=== PATIENT | female | born 1955 | race Caucasian/White ===

== ENCOUNTER → 2018-02-07 11:02 | Outpatient (CLI) | payer MEDICAID, SELFPAY ==
[2018-02-07 12:16] LABS: T4 Free Direct 0.75 ng/dL (0.76-1.46); Thyroid Stim Hormone (TSH) 1.22 uIU/mL (0.358-3.74)
== END ==
PROVIDERS: Family Provider Family Medicine; PCP Family Medicine; Visit Provider Otolaryngology Otolaryngology/Facial Plastic Surgery
DX: R49.0 Dysphonia (principal)
CPT/HCPCS: 36415; 84439; 84443

== ENCOUNTER 2019-12-07 13:09 | Emergency (ER) | payer MEDICARE, OTHER, SELFPAY ==
[2019-12-07 13:13] VITALS: BP 118/65; PULSE 78; RESP 17; TEMP 36.8; O2SAT 95; BMI 31.2
--- NOTE | 2019-12-07 13:42 | ED.VIS.UPPEX ---
History of Present Illness Informant: Patient Occurred: Today Mechanism/Context: - - denies injury Onset: Today Context: Gradual Onset Timing: Continuous Quality of Pain: Sharp Location: right shoulder Current Severity: Severe Maximum Severity: Severe Worsened by: movement Relieved by: rest Associated Symptoms: Negative for: Parasthesia, Weakness, Loss of Funtion Narrative: 64-year-old female with a past medical history of hypothyroidism presents to the emergency department with right shoulder pain. Patient woke up with the pain to this morning. No inciting injury or trauma. The pain is sharp in her anterior shoulder radiating down into her arm. No neck pain. No numbness or tingling. No weakness. No redness swelling rash or bruising. She is not anticoagulated. Denies history of similar symptoms. She is right-hand dominant. No chest pain or shortness of breath, palpitations or near syncope. No headache or neck pain. No fevers or chills. No recent travel or surgery or history of DVT or PE. Tetanus Immunization: Unknown Prior similar symptoms: No Recent Illness/Hospitalization: No <Lui Bush - Last Filed: 12/07/19 14:23> <Kaiser Babcock - Last Filed: 12/07/19 14:31> Chief Complaint: Upper Extremity Injury Past Medical History Prior records reviewed: Yes Past Medical History: - - Hypothyroidism Surgical History: no surgical history Lives: With Family Smoking Status: Never smoker Alcohol: None Drugs: None <Lui Bush - Last Filed: 12/07/19 14:23> <Kaiser Babcock - Last Filed: 12/07/19 14:31> - Allergies and Home Meds Allergies/Adverse Reactions: Allergies STATES HAS 1 ALLERGY, NOT KNOWN Adverse Reaction (Uncoded 12/07/19 13:13) NOT KNOWN Primary Care Physician: Ileana Patel DO [STAFF PHYSICIAN] - As soon as possible Ariella Sheikh MD [Primary Care Provider] - Review of Systems All systems negative except as indicated General: Denies: Chills, Fever, Malaise Eyes: Denies: Visual changes - bilaterally, Blurred Vision - bilaterally, Diplopia ENT: Denies: Rhinorrhea, Sore throat Cardiovascular: Denies: Chest pain, Palpitations, Heart racing Respiratory: Denies: Dyspnea, Cough, Sputum, Dyspnea on exertion, Orthopnea Gastrointestinal: Denies: Abdominal pain, Nausea, Vomiting, Diarrhea Genitourinary: Denies: Dysuria, Hematuria, Frequency Musculoskeletal: Reports: Extremity Pain. Denies: Myalgias, Arthralgias, Neck pain, Back pain, Swelling Skin: Denies: Rash, Abscess, Abrasions, Wounds Neurological: Denies: Headache, Weakness, Parasthesia, Numbness Hematologic: Denies: Easy bruising, Easy bleeding <Lui Bush - Last Filed: 12/07/19 14:23> Physical Exam Vital Signs/Narrative: Vital Signs Temp Pulse Resp BP Pulse Ox 12/07/19 13:13 98.2 F 78 17 118/65 95 Inital Vital Signs reviewed: Yes ED - Upper Extremity Diagram: 1 - Tenderness to palpation Right Shoulder: - - Patient has a normal inspection of the right shoulder and right upper extremity. No swelling bruising rash trauma or sign of infection. She has limited range of motion secondary to pain but no weakness. Pain on palpation anteriorly over the anterior rotator cuff musculature. Pain specifically with external rotation. She has no tenderness over her neck elbow or wrist on palpation. She has normal radial pulse bilaterally and equal rolling attendant strength bilaterally. General: Well nourished, Well developed Head: Normocephalic, Atraumatic Eyes: Perrl, EOMI ENT: No Trauma, Moist Mucous Membranes Neck: Nontender, Full ROM. Negative for: Spinal Tenderness, Paraspinal Tenderness Cardiovascular: Regular rate, Regular rhythm, No murmurs Respiratory: No distress, CTA bilaterally, Chest nontender Abdomen: Soft, Nontender, Nondistended, Normal bowel sounds, No masses Back: Nontender. Negative for: CVA Tenderness - Right, CVA Tenderness - Left, Spinal Tenderness, Paraspinal Tenderness Skin: Normal color, No rash, No Trauma Neurological: Alert, Oriented x3, Normal Strength, Normal Sensation, Normal Gait Psychological: Normal affect, Normal Mood <Lui Bush - Last Filed: 12/07/19 14:23> Vital Signs/Narrative: Vital Signs Temp Pulse Resp BP Pulse Ox 12/07/19 13:13 98.2 F 78 17 118/65 95 <Sadiq,Sam - Last Filed: 12/07/19 14:31> Diagnostic/Tx/Re-eval - Medical Decision Making Patient was given a [place] for pain. X-ray shows degenerative changes of the AC joint. No other abnormalities. Patient reassured. She be placed in a sling. She was prescribed [place]. She will rest and ice and she will be given follow-up with orthopedics. Impressions Shoulder X-Ray 12/07/19 13:46 IMPRESSION: Degenerative changes of the acromioclavicular joint. Electronically Signed: Roshan Castillo, at 14:16 EDT , Service support , 12/07/19 13:46 Xray Shoulder [Shoulder min 2 Views] [RAD] Stat <Lui Bush - Last Filed: 12/07/19 14:23> - Medical Decision Making I supervised the PA and have performed my own pertinent history and physical. Results and treatment plan were discussed. HPI: Patient reports that this morning she woke up with right shoulder pain. She is right-hand dominant. She denies any trauma. No fall, MVA, or change in activity. PE: Vitals: Stable. Afebrile. General: Well-nourished and well-developed. Head: Normocephalic atraumatic. Neck: Supple, no lymphadenopathy. No JVD. Nontender. Cardiovascular: Regular rate and rhythm. No murmurs. Respiratory: No respiratory distress. Clear to auscultation bilaterally. Abdominal: Soft, nontender, nondistended, normal bowel sounds. No guarding, rebound, or peritoneal signs. Back: Nontender. Extremities: Right shoulder has moderate tenderness palpation that is localized over the AC joint. She does have mild diffuse tenderness palpation of her deltoid, but this is not the main area of her pain. There is no overlying erythema or warmth to suggest a septic joint. She has minimal pain with short arc movements. She does have considerable pain with abduction to 90 degrees. This is worse actively than passively. She has a 2+ radial pulse. She has normal sensation light touch distally. Skin: Normal color, no rash. Neurologic: Alert and oriented ?3. Cranial nerves II through XII are intact. Normal strength and sensation. Psych: Normal affect. Emergency Department course: Patient was treated with [place] and placed in a sling. Treatment Plan: Patient be discharged with [place]. Instructed to ice the area. Follow-up Dr. Frank Rosado in 1 week if not improving. Return to the emergency department for any worsening symptoms. This note was generated with [employer] dictation software. It may contain incorrect words, spelling, and punctuation that were not noted in review of the chart prior to signing. <Kaiser Babcock - Last Filed: 12/07/19 14:31> ED Disposition <Lui Bush - Last Filed: 12/07/19 14:23> <Kaiser Babcock - Last Filed: 12/07/19 14:31> - Plan for ED Patient: Disposition: Home or Assisted Living Diagnosis: Acromioclavicular joint arthritis, Acromioclavicular (joint) (ligament) sprain Instructions: ED Sprain AC Joint Prescriptions: Hydrocodone Bitart/Apap 5-325 [[place] 5MG-325MG] 1 tab PO Q6H PRN PRN 3 Days #10 tab PRN Reason: Pain Prescription Printed Referrals: Ariella Sheikh MD [Primary Care Provider] - Ileana Patel DO [STAFF PHYSICIAN] - As soon as possible
--- NOTE | 2019-12-07 13:46 | RAD_ITS ---
STUDY: X-RAY - RIGHT SHOULDER REASON FOR EXAM: Female, 64 years old. WOKE UP THIS MORNING WITH RIGHT SHOULDER PAIN. NO KNOWN INJURY. TECHNIQUE: 4 view(s) of the shoulder. COMPARISON: None. FINDINGS: Normal glenohumeral articulation. There is degenerative arthrosis of the acromioclavicular joint without inferior osseous spur formation. Normal acromion. Normal humeral head and visualized proximal humerus. The soft tissue structures are unremarkable. Normal visualized pulmonary apex. RAD/Shoulder min 2 Views IMPRESSION: Degenerative changes of the acromioclavicular joint. Electronically Signed: Roshan Castillo, at 14:16 EDT , Service support ,
[2019-12-07] MEDS: HYDROcodone Bitartrate/Apap 5/325 Tablet PO (14:33)
[2019-12-07 14:44] VITALS: BP 122/76; PULSE 79; RESP 14; O2SAT 99
== END 2019-12-07 14:50 | disposition home or self-care (01) ==
PROVIDERS: Emergency Provider Physician Assistant Medical; PCP Internal Medicine
DX: M13.811 Other specified arthritis, right shoulder (principal); S43.51XA Sprain of right acromioclavicular joint, initial encounter; E03.9 Hypothyroidism, unspecified; X58.XXXA Exposure to other specified factors, initial encounter
CPT/HCPCS: 73030; 99283

== ENCOUNTER → 2020-01-24 09:40 | Outpatient (CLI) | payer MEDICARE, OTHER, SELFPAY ==
[2020-01-24 09:27] VITALS: BMI 31.2
--- NOTE | 2020-01-24 09:41 | RAD_ITS ---
STUDY: X-RAY - LEFT SHOULDER REASON FOR EXAM: Female, 64 years old. CHRONIC PAIN TECHNIQUE: 3 view(s) of the shoulder. COMPARISON: None. FINDINGS: There is moderate degenerative arthrosis of the glenohumeral articulation. There is degenerative arthrosis of the acromioclavicular joint without inferior osseous spur formation. Normal acromion. Normal humeral head and visualized proximal humerus. The soft tissue structures are unremarkable. Normal visualized pulmonary apex. RAD/Shoulder min 2 Views IMPRESSION: Degenerative arthrosis Electronically Signed: Lloyd Kelly MD at 17:13 EDT , Service support ,
== END ==
PROVIDERS: PCP Internal Medicine; Referring Provider Physician Assistant; Visit Provider Physician Assistant
DX: M25.512 Pain in left shoulder (principal)
CPT/HCPCS: 73030

== ENCOUNTER 2021-10-24 13:40 | Emergency (ER) | payer MEDICARE, SELFPAY ==
[2021-10-24 13:41] VITALS: BP 130/106; PULSE 55; RESP 16; TEMP 35.1; O2SAT 91; BMI 30.1
--- NOTE | 2021-10-24 13:50 | RAD_ITS ---
STUDY: X-RAY CHEST REASON FOR EXAM: Female, 66 years old. confusion TECHNIQUE: Single AP portable view of the chest. COMPARISON: None. FINDINGS: The lungs are clear and expanded. There is no demonstrated pleural abnormality. Normal size heart. Normal mediastinum and sabas. Normal visualized pulmonary arteries. Normal visualized aortic arch and descending thoracic aorta. Normal visualized thoracic spine. Normal visualized ribs, clavicles, and shoulders. There is no demonstrated abnormality of the visualized soft tissue structures of the upper abdomen. RAD/Chest 1 View (Portable) IMPRESSION: Normal x-ray examination of the chest. Electronically Signed: Ford Hensley MD at 14:53 EDT ,
--- NOTE | 2021-10-24 13:50 | CT_ITS ---
STUDY: CT BRAIN WITHOUT CONTRAST REASON FOR EXAM: Female, 66 years old. confusion RADIATION DOSAGE (If Supplied By Facility): CTDIvol = ( 44.99 ) mGy, DLP = ( 796.11 ) mGycm TECHNIQUE: Transaxial CT imaging of the brain was performed without administration of intravenous contrast material. Individualized dose optimization techniques were used for this CT. COMPARISON: No relevant priors. FINDINGS: Normal soft tissue structures. Normal calvarium. There is moderate cerebral atrophy with widening of the extra-axial spaces and ventricular dilatation. Normal white matter tracts of the cerebral hemispheres. Normal basal ganglia and thalami. Normal brainstem. Normal cerebellum. There is no intracranial hemorrhage. There are no findings of an acute ischemic infarction. Normal visualized paranasal sinuses. CT/Brain/Head without Contrast IMPRESSION: Chronic involutional changes of the brain. Electronically Signed: Ford Hensley MD at 14:54 EDT ,
--- NOTE | 2021-10-24 13:50 | EKG12_ITS ---
Test Reason : Blood Pressure : / mmHG Vent. Rate : 067 BPM Atrial Rate : 067 BPM P-R Int : 188 ms QRS Dur : 074 ms QT Int : 428 ms P-R-T Axes : 015 -22 012 degrees QTc Int : 452 ms Normal sinus rhythm Low voltage QRS Inferior infarct , age undetermined Abnormal ECG Confirmed by ALTHEA CHOU, RAGHAVENDRA ([id number]), acquisition editor JUNI GUZMAN ([id number]) on 10/26/2021 11:38:15 A M Referred By: MADIE Confirmed By:JERALD OH MD
--- NOTE | 2021-10-24 13:51 | ED.RN ---
Pt and family stated that pt had some confusion and right sided weakness that started when pt woke up this am. Dr Hutton called to triage to rule out stroke. Pt then told Dr Hutton that the confusion started a couple months ago. Pt told him that her complaint was that her right wrist/hand was hurting but doesnt remember hurting it. After the pt was being taken to a room, sister pulled this nurse aside and told me that the pt has alzheimers and it has been getting worse. Dr Hutton and primary nurse is aware.
--- NOTE | 2021-10-24 13:59 | EDS_ITS ---
HPI History of Present Illness Chief Complaint: Other, Pain/Inj Narrative Narrative: Patient initially assessed in triage as there was concern for possible strokelike symptoms. Patient reported that she felt confused this morning and reported pain and weakness in the right arm. Patient has not had any facial droop, slurred speech, paresthesias, inability to use extremities with exception to the right wrist which is tender since this morning. He denies any injury. Patient does not have a headache. After speaking with her further her [id number] states she has dementia and she has been confused on and off for months. She describes this morning confusion where she was unable to answer some questions initially. She is at baseline now. [facility] Medical History Alcohol abuse Drug abuse High cholesterol Hypothyroid Home Medications levothyroxine 25 mcg PO DAILY 12/07/19 [History Last Taken 12/07/19] sertraline 50 mg tablet 50 mg PO DAILY tab 01/24/20 [History Last Taken Unknown] simvastatin 40 mg tablet 40 mg PO DAILY tab 01/24/20 [History Last Taken Unknown] sertraline 100 mg PO DAILY 10/24/21 [History Last Taken Unknown] Allergy/AdvReac Type Severity Reaction Status Date / Time naproxen Allergy Unknown Unknown Verified 01/24/20 09:31 STATES HAS 1 ALLERGY, NOT AdvReac NOT KNOWN Uncoded 12/07/19 13:13 KNOWN Family History Son No problems noted. Father Alcoholism Other Hyperlipidemia Thyroid disorder Surgical History History of tonsillectomy Social History Smoking Status: Former smoker Tobacco: How many years used: 3 second hand exposure: No alcohol intake: never substance use type: does not use caffeine: Yes ROS ROS ED Constitutional Constitutional ED: Denies fever(s) or subjective Eyes Eyes: Denies blurry vision or change in vision ENT ENT ED: Denies rhinorrhea or sore throat Cardiovascular Cardiovascular: Denies chest pain or palpitations Respiratory/Chest Respiratory/Chest: Denies cough or dyspnea Gastrointestinal Gastrointestinal: Denies abdominal pain, nausea or vomiting Genitourinary Genitourinary ED: Denies dysuria or hematuria Musculoskeletal Musculoskeletal: Reports other Details: Right wrist pain Integumentary Denies abscess or rash Neurologic Neurologic: Denies headache(s) or paresthesias Psychiatric Psychiatric: Denies anxiety or depression EXAM Physical Exam Const Vital Signs: 10/24/21 13:41 10/24/21 14:02 Temperature 95.1 F L Temperature Source Temporal Pulse Rate 55 L 71 Respiratory Rate 16 18 Blood Pressure 130/106 H 110/64 Blood Pressure Mean 114 79 Pulse Ox 91 98 Oxygen Delivery Method Room Air Room Air Positive well nourished General Appearance ED: NAD HEENT atraumatic Eyes PERRL and EOMs intact bilaterally Neck full ROM General: Negative for tenderness Resp normal respiratory effort and clear to auscultation bilaterally Cardio Rate: regular rate and bradycardia GI normal to inspection, nondistended, normoactive bowel sounds Extremity normal to inspection; Negative for full ROM General Extremety ED: Negative for tenderness Neuro oriented x3, CN's II-XII intact bilaterally, moves all extremities, no focal motor deficits and no sensory deficits noted Sensorium / Orientation: alert Psych mental status grossly normal Skin no rashes or lesions noted and no jaundice MDM MDM MDM Narrative Medical decision making narrative: Patient presenting with confusion and initially was thought this may be strokelike symptoms and apparently she has been having intermittent confusion for months. On examination she has no focal neurologic deficits or lateralizing signs or symptoms. NIH stroke scale is 0. I do not believe this is a stroke presentation, but will look for a cause of confusion other than her dementia patient was found to have a positive Tinel's sign on the right wrist. Patient [id number] she states the does a lot of coloring. She does not have any trauma history to her wrist. I do not believe she needs imaging. She is counseled for this you need NSAIDs and ice. I did obtain blood work and her CBC and CMP are unremarkable. EKG on my interpretation Is sinus rhythm at 67 bpm without sign of ischemic change or dysrhythmia. Chest x-ray on my interpretation shows no acute cardiopulmonary process and the radiologist does agree.CT of the brain is negative for acute pathology. Urinalysis negative for infection. I do believe the patient's symptoms are likely due to her dementia and her family does agree. Patient put in a wrist splint for discharge. Impression: 1. Confusion resolved 2. History of dementia 3. Carpal tunnel syndrome Lab Data Attestation: I reviewed the patient's lab results. Labs: Laboratory Results - last 24 hr 10/24/21 10/24/21 10/24/21 13:56 13:56 13:56 WBC 7.6 RBC 4.62 Hgb 13.1 Hct 39.9 MCV 86.4 MCH 28.4 MCHC 32.8 RDW Std Deviation 42.8 RDW Coeff of [place] 13.6 Plt Count 221 MPV 9.0 Immature Gran % (Auto) 0.300 Neut % (Auto) 76.6 H Lymph % (Auto) 15.2 L [place] % (Auto) 7.1 Eos % (Auto) 0.1 Baso % (Auto) 0.7 Absolute Neuts (auto) 5.8 Absolute Lymphs (auto) 1.16 Nucleated RBC % 0 Sodium 138 Potassium 3.6 Chloride 107 Carbon Dioxide 25.0 Anion Gap 6 BUN 12 Creatinine 1.04 H Estim Creat Clear Calc 40.95 Est GFR (MDRD) Af Amer 68 Est GFR (MDRD) Non-Af 56 L BUN/Creatinine Ratio 11.5 Glucose 174 H Calcium 9.0 Total Bilirubin 0.50 AST 19 ALT 19 Alkaline Phosphatase 93 Troponin I High Sens 3 Total Protein 7.9 Albumin 3.7 Globulin 4.2 Albumin/Globulin Ratio 0.9 Urine Color Urine Clarity Urine pH Ur Specific [place] Urine Protein Urine Glucose (UA) Urine Ketones Urine Occult Blood Urine Nitrite Urine Bilirubin Urine Urobilinogen Ur Leukocyte Esterase Urine RBC Urine WBC Ur Squamous Epith Cells Urine Bacteria Urine Mucus POC Glucose 171 H 10/24/21 16:13 WBC RBC Hgb Hct MCV MCH MCHC RDW Std Deviation RDW Coeff of [place] Plt Count MPV Immature Gran % (Auto) Neut % (Auto) Lymph % (Auto) [place] % (Auto) Eos % (Auto) Baso % (Auto) Absolute Neuts (auto) Absolute Lymphs (auto) Nucleated RBC % Sodium Potassium Chloride Carbon Dioxide Anion Gap BUN Creatinine Estim Creat Clear Calc Est GFR (MDRD) Af Amer Est GFR (MDRD) Non-Af BUN/Creatinine Ratio Glucose Calcium Total Bilirubin AST ALT Alkaline Phosphatase Troponin I High Sens Total Protein Albumin Globulin Albumin/Globulin Ratio Urine Color Yellow Urine Clarity Clear Urine pH 5.0 Ur Specific [place] 1.015 Urine Protein 15 H Urine Glucose (UA) Normal Urine Ketones Negative Urine Occult Blood 10 H Urine Nitrite Negative Urine Bilirubin Negative Urine Urobilinogen 4 H Ur Leukocyte Esterase 100 H Urine RBC 0 SEEN Urine WBC 0-5 SEEN Ur Squamous Epith Cells 0-5 SEEN Urine Bacteria 0 SEEN Urine Mucus 1+ POC Glucose Radiography Diagnostic Testing: Clinical Impression(s) from Imaging Studies Brain CT 10/24/21 13:50 IMPRESSION: Chronic involutional changes of the brain. Electronically Signed: Ford Hensley MD at 14:54 EDT Reading Location ID and State: [id number] / [place] [employer] Tel , Service support , Chest X-Ray 10/24/21 13:50 IMPRESSION: Normal x-ray examination of the chest. Electronically Signed: Ford Hensley MD at 14:53 EDT Reading Location ID and State: [id number] / [place] [employer] Tel , Service support , Discharge Plan Triage Chief Complaint: Other, Pain/Inj ED Provider: Dominic Hutton Dx/Rx/DC Orders Prescriptions: No Action simvastatin 40 mg tablet 40 mg PO DAILY RF: 0 sertraline 50 mg tablet 50 mg PO DAILY RF: 0 levothyroxine 25 MCG tablet 25 mcg PO DAILY RF: 0 sertraline 100 mg tablet 100 mg PO DAILY RF: 0 Primary Care Provider: Tae Cordova
[2021-10-24 14:02] VITALS: BP 110/64; PULSE 71; RESP 18; O2SAT 98
[2021-10-24 14:08] LABS: Absolute Lymphocyte Count 1.16 X10^3/uL (0.83-4.51); Absolute Neutrophil Count 5.8 X10^3/uL (2.0-7.7); Basophil# 0.05 X10^3/uL; Basophil% 0.7 % (0-1); Eosinophil# 0.01 X10^3/uL; Eosinophils% 0.1 % (0-5); Hematocrit 39.9 % (37-47); Hemoglobin 13.1 g/dL (12.0-15.0); Lymphocyte # 1.16 X10^3/ul (0.83-4.51); Lymphocyte % 15.2 % (19-41); Mean Corp Hgb Conc 32.8 g/dL (32-36); Mean Corpuscular Hgb 28.4 pg (27.0-32.0); Mean Corpuscular Volume 86.4 fL (81-99); Monocyte# 0.54 X10^3/uL; Monocyte% 7.1 % (0-10); NRBC Flagged by Analyzer 0 % (0-5); Neutrophil # 5.83 X10^3/uL (2.7-7.7); Neutrophil % 76.6 % (47-70); Platelet Count 221 K/mm3 (150-450); RBC Distribution Width CV 13.6 % (11.6-14.6); RBC Distribution Width SD 42.8 fl (35.1-43.9); Red Blood Count 4.62 M/mm3 (4.2-5.4); White Blood Count 7.6 K/mm3 (4.4-11.0)
[2021-10-24 14:11] LABS: Bedside Glucose 171 mg/dL (74-106)
[2021-10-24 14:23] LABS: ALB/GLOB Ratio 0.9 RATIO (0.9-2.4); AST(SGOT) 19 U/L (15-37); Alanine Aminotransfer ALT/SGPT 19 U/L (13-56); Albumin, Serum 3.7 g/dL (3.2-5.0); Alkaline Phosphatase 93 U/L (45-117); Anion Gap 6 (5-15); BUN 12 mg/dL (7-18); BUN/Creat Ratio 11.5 RATIO (10-20); Chloride 107 mmol/L (98-107); Creatinine, Serum 1.04 mg/dL (0.55-1.02); EST Glomerular Filtration Rate 56 mL/min (>60); Est Glom Filt Rate - Afr Amer 68 mL/min (>60); Estimated Creatinine Clearance 40.95 ml/min; Globulin 4.2 g/dL (2.2-4.2); Glucose 174 mg/dL (74-106); Potassium 3.6 mmol/L (3.5-5.1); Protein, Total 7.9 g/dL (6.4-8.2); Sodium Level 138 mmol/L (136-145); Troponin-I HS 3 pg/mL (3.0-54.0)
[2021-10-24 16:19] LABS: Bacteria 0 SEEN /hpf (None Seen); Red Blood Cells-Urine 0 SEEN /hpf (0-5)
[2021-10-24 16:41] LABS: Color, Urine Yellow (Yellow); Glucose, Dipstick Normal (Normal); Ketone-Dipstick Negative (Negative); Leukocyte Esterase-Dipstick 100 /ul (Negative); Nitrite-Dipstick Negative (Negative); Occult Blood-Urine 10 /ul (Negative); Protein-Dipstick 15 mg/dl (Negative); Specific Gravity, Urine 1.015 (1.002-1.030); Urine Bilirubin Dipstick Negative (Negative); Urine Clarity Clear (Clear); Urine Urobilinogen 4 mg/dl (Normal)
[2021-10-24 16:47] LABS: Mucous, Urine 1+ /hpf (<or=2+); Squamous Epithelial Cells - UA 0-5 SEEN /hpf (5-10); White Blood Cells 0-5 SEEN /hpf (0-5)
[2021-10-24 16:52] VITALS: BP 114/87; PULSE 62; RESP 16; O2SAT 99
[2021-10-24 17:11] VITALS: BP 114/87; PULSE 62; RESP 16; O2SAT 99
== END 2021-10-24 17:11 | disposition home or self-care (01) ==
PROVIDERS: Emergency Provider Student in an Organized Health Care Education/Training Program; PCP Family Medicine; Visit Provider Student in an Organized Health Care Education/Training Program
DX: G56.00 Carpal tunnel syndrome, unspecified upper limb (principal); E78.00 Pure hypercholesterolemia, unspecified; Z87.891 Personal history of nicotine dependence; Z79.899 Other long term (current) drug therapy
CPT/HCPCS: 70450; 71045; 80053; 81001; 82962; 84484; 85025; 93005; 99285; A4216

== ENCOUNTER 2022-05-12 22:41 | Observation (INO) | payer MEDICARE, MEDICAID, SELFPAY ==
[2022-05-12 22:41] VITALS: BP 133/61; PULSE 118; RESP 24; TEMP 39.4; O2SAT 98; BMI 30.4
[2022-05-12 22:49] VITALS: BP 133/61; PULSE 117; RESP 22; TEMP 39.4; O2SAT 95
[2022-05-12 23:17] VITALS: O2SAT 96
--- NOTE | 2022-05-12 23:17 | RAD_ITS ---
INDICATION: fever EXAMINATION: Frontal view of the chest COMPARISON: October 24, 2021. FINDINGS: Frontal view of the chest was obtained. The cardiac silhouette is not enlarged. No confluent airspace disease. No pneumothorax. RAD/Chest 1 View (Portable) IMPRESSION: No acute pulmonary disease. Electronically Signed: Guero Aiken MD at 0:03 EDT ,
--- NOTE | 2022-05-12 23:22 | EX.ED.DYSGE1 ---
HPI History of Present Illness Chief Complaint: Confusion Detail of Chief Complaint: Not feeling well today Informant: patient and family Onset/Context/Timing Onset: Today Current Severity: Mild Maximum Severity: Mild Narrative Narrative: 58-year-old female lives at home is a history of dementia. Family is with her. Says she just really was not her self today. She had normal oral intake. They did not notice any fever at home but here she is 102.9. There is been no vomiting or diarrhea. No significant cough. No complaint of abdominal pain. No complaint of dysuria. No rashes. She has had no recent hospitalization. Prior similar symptoms: Yes Recent Illness/Hospitalization: No PFSH PFSH Medical History (Updated 05/13/22 @ 00:[address] Robin Che MD) Alcohol abuse Drug abuse High cholesterol Hypothyroid Home Medications levothyroxine 25 mcg tablet 25 mcg PO DAILY 12/07/19 [History Last Taken 12/07/19] sertraline 50 mg tablet 50 mg PO DAILY 01/24/20 [History Last Taken Unknown] simvastatin 40 mg tablet 40 mg PO DAILY 01/24/20 [History Last Taken Unknown] sertraline 100 mg tablet 100 mg PO DAILY 10/24/21 [History Last Taken Unknown] Allergy/AdvReac Type Severity Reaction Status Date / Time naproxen Allergy Unknown Unknown Verified 01/24/20 09:31 STATES HAS 1 ALLERGY, NOT AdvReac NOT KNOWN Uncoded 12/07/19 13:13 KNOWN Family History Son No problems noted. Father Alcoholism Other Hyperlipidemia Thyroid disorder Surgical History History of tonsillectomy Social History Smoking Status: Former smoker Tobacco: How many years used: 3 second hand exposure: No alcohol intake: never substance use type: does not use caffeine: Yes ROS ROS ED ROS Narrative Family denies. Fever noted here. Review of Systems ROS Unobtainable: due to mental status Constitutional Constitutional ED: Reports fever(s); Denies chills Eyes Eyes: Denies blurry vision ENT ENT ED: Denies ear pain Cardiovascular Cardiovascular: Denies chest pain Respiratory/Chest Respiratory/Chest: Denies cough or dyspnea Gastrointestinal Gastrointestinal: Denies abdominal pain Genitourinary Genitourinary ED: Denies dysuria or hematuria Musculoskeletal Musculoskeletal: Denies arthralgias Integumentary Denies abscess or Abrasions Neurologic Neurologic: Denies headache(s) Psychiatric Psychiatric: Denies anxiety Endocrine Endocrinology: Denies cold intolerance Hematologic/Lymphatic Hematologic/Lymphatic: Reports none Allergic/Immunologic Allergic/Immunologic ED: Denies mouth swelling or tongue swelling EXAM Physical Exam Narrative Exam Narrative: 58-year-old female currently no acute distress. She does have a fever of 102.9. Pulse ox 90% on room air no signs hypoxia. Initial pressure is stable. She is in no distress. Lying in bed. Family at bedside. H EENT exam unremarkable. Moist Riis membranes. No trauma. Neck nontender. No meningismus. No lymphadenopathy. Lungs clear to auscultation bilaterally. Heart tachycardic rate about 116 no murmur. Chest wall nontender. Abdomen soft nontender. No peritoneal signs. Pelvic girdle intact. Moving all 4 extremities. Nontender. No deformity. No red or swollen or tender joints. Neurologically she is awake. Her eyes are open. She answers questions and follows commands. She has no focal motor deficits. Skin unremarkable. No petechiae or purpura. No rashes. No cellulitis noted. Const Vital Signs: 05/12/22 22:41 05/12/22 22:49 05/12/22 23:17 Temperature 102.9 F H 102.9 F H Temperature Source Oral Oral Pulse Rate 118 H 117 H Respiratory Rate 24 H 22 H Blood Pressure 133/61 H 133/61 H Blood Pressure Mean 85 85 Pulse Ox 98 95 96 Oxygen Delivery Method Room Air Room Air Room Air 05/12/22 23:45 05/13/22 00:07 05/13/22 00:10 Temperature 101.9 F H Temperature Source Core Pulse Rate 98 Respiratory Rate 17 22 H Blood Pressure 141/69 H Blood Pressure Mean 93 Pulse Ox 99 98 Oxygen Delivery Method Room Air Room Air Positive well nourished, well developed and obese; Negative for cachectic, contractures or unkempt General Appearance ED: well developed and NAD; Negative for unkempt, cachectic, contractures, cyanotic or diaphoretic Nutritional Appearance: obese; Negative for cachectic HEENT Reports moist mucous membranes; Denies dry mucous membranes Negative for trauma or tenderness Mouth ED: No dry mucous membranes Mouth: No dry mucous membranes Eyes PERRL and EOMs intact bilaterally General Eye ED: Negative for pale conjunctiva or scleral icterus Neck no lymphadenopathy, supple and no JVD General: Negative for tenderness Lymph Lymphatic: Negative for other Chest Wall inspection of chest normal and palpation of chest normal Chest: Negative for other Resp normal respiratory effort and clear to auscultation bilaterally Effort and Inspection: Negative for retractions Auscultation: Negative for rales or rhonchi Cardio regular rhythm, S1 normal heart sound, S2 normal heart sound and no murmurs; Negative for regular rate Rate: tachycardic GI normal to inspection, nondistended, normoactive bowel sounds, non-tender, non-distended and no masses Inspection: Negative for abdominal distention Auscultation: normoactive bowel sounds Palpation: soft; Negative for tender, guarding, mass or rebound tenderness present Back/Spine no CVA tenderness General Back: Negative for CVA tenderness Cervical Spine: Negative for cervical spine tenderness Thoracic Spine / Upper Back: Negative for thoracic spinal tenderness Lumbar Spine / Lower Back: Negative for lumbar spinal tenderness Extremity normal to inspection General Extremety ED: Negative for edema or tenderness General Extremity: Negative for edema Neuro No oriented x3 Sensorium / Orientation: alert; Negative for lethargic or stuporous Motor Exam: strength 5/5 throughout Psych mental status grossly normal Appearance: Negative for unkempt Attitude: No agitated Mood & Affect: Negative for depressed, anxious or tearful Skin no rashes or lesions noted and no wounds Lesions: No lesion noted Rashes: No rashes noted Trauma: Negative for abrasion Wounds: Negative for wounds noted MDM MDM MDM Narrative Medical decision making narrative: 66-year-old with a fever 1-2.9. No obvious source on exam. She will be treated with oral Tylenol, IV fluids. Placed her with septic protocol work-up. Repeat a.m. patient doing well at 12:25 AM. Discussed all test results with patient and her daughter. I did do a rectal exam with the daughter present in the room due to the patient's hemoglobin being 9.2 and previously 13. No stool in the vault. No blood no melena. Patient's fever is coming down last checked it was 101.9. Discussed with the daughter treatment options she did not feel she could comfortably take care of her at home. Is concerned about her worsening confusion and generalized weakness which is most likely from the COVID. I have spoken to the hospitalist about admission. Lab Data Attestation: I reviewed the patient's lab results. Lab results narrative: CBC shows white count 6.4. H&H 9.2 and 20.6. Platelets of 202. PT/INR and PTT are normal. Electrolytes show a gap of 7 normal BUN and creatinine 11 and 0.9. Glucose 133. Liver enzymes unremarkable. Lactic acid normal 1.4. Chest x-ray negative. Urinalysis negative. No whites, reds nor nitrates. Rapid COVID test positive. Labs: Laboratory Results - last 24 hr 05/12/22 05/12/22 05/12/22 22:50 22:50 22:50 WBC 6.4 RBC 3.13 L Hgb 9.2 L Hct 28.6 L MCV 91.4 MCH 29.4 MCHC 32.2 RDW Std Deviation 44.6 H RDW Coeff of Rosalba 13.3 Plt Count 202 MPV 9.3 Immature Gran % (Auto) 1.600 H Neut % (Auto) 75.8 H Lymph % (Auto) 12.1 L [place] % (Auto) 8.8 Eos % (Auto) 0.9 Baso % (Auto) 0.8 Absolute Neuts (auto) 4.8 Absolute Lymphs (auto) 0.77 L Nucleated RBC % 0 PT 14.8 INR 1.2 APTT 30.4 Sodium 139 Potassium 4.1 Chloride 109 H Carbon Dioxide 23.0 Anion Gap 7 BUN 11 Creatinine 0.98 Estim Creat Clear Calc 51.43 Est GFR (MDRD) Af Amer 73 Est GFR (MDRD) Non-Af 60 BUN/Creatinine Ratio 11.3 Glucose 133 H Lactic Acid Calcium 8.8 Total Bilirubin 0.50 AST 23 ALT 21 Alkaline Phosphatase 76 Total Protein 7.8 Albumin 3.2 Globulin 4.6 H Albumin/Globulin Ratio 0.7 L Urine Color Urine Clarity Urine pH Ur Specific [place] Urine Protein Urine Glucose (UA) Urine Ketones Urine Occult Blood Urine Nitrite Urine Bilirubin Urine Urobilinogen Ur Leukocyte Esterase Urine RBC Urine WBC Ur Squamous Epith Cells Urine Bacteria Urine Mucus 05/12/22 05/12/22 22:50 23:30 WBC RBC Hgb Hct MCV MCH MCHC RDW Std Deviation RDW Coeff of Rosalba Plt Count MPV Immature Gran % (Auto) Neut % (Auto) Lymph % (Auto) [place] % (Auto) Eos % (Auto) Baso % (Auto) Absolute Neuts (auto) Absolute Lymphs (auto) Nucleated RBC % PT INR APTT Sodium Potassium Chloride Carbon Dioxide Anion Gap BUN Creatinine Estim Creat Clear Calc Est GFR (MDRD) Af Amer Est GFR (MDRD) Non-Af BUN/Creatinine Ratio Glucose Lactic Acid 1.4 Calcium Total Bilirubin AST ALT Alkaline Phosphatase Total Protein Albumin Globulin Albumin/Globulin Ratio Urine Color Yellow Urine Clarity Clear Urine pH 7.0 Ur Specific [place] 1.010 Urine Protein 15 H Urine Glucose (UA) Normal Urine Ketones Negative Urine Occult Blood 10 H Urine Nitrite Negative Urine Bilirubin Negative Urine Urobilinogen 4 H Ur Leukocyte Esterase 25 H Urine RBC 0-5 SEEN Urine WBC 0-5 SEEN Ur Squamous Epith Cells 0 SEEN Urine Bacteria RARE Urine Mucus 0 SEEN Radiography Chest X-Ray - ED: 1 View, Read by ED Physician, Read by Radiologist, Heart, Lungs, Mediastinum, Bony Structures, No Acute Disease and Chronic Changes Diagnostic Testing: Clinical Impression(s) from Imaging Studies Chest X-Ray 05/12/22 23:17 IMPRESSION: No acute pulmonary disease. Electronically Signed: Guero Aiken MD at 0:03 EDT , Chest x-ray, portable, single view interpreted both by myself and radiologist shows no acute abnormality. Normal cardiac silhouette. Normal lung [place] bilaterally. Rhythm Strip Rhythm Strip: Sinus Tach Rate: 115 Ectopy: None EKG Initial EKG: Attestation: I personally reviewed and interpreted this EKG as follows: Interpretation: Sinus Rhythm, No Acute Injury Pattern and Sinus Tachycardia Comments: Sinus tachycardia rate of 115. No acute signs of RI nor ischemia nor significant dysrhythmia. Discharge Plan Triage Chief Complaint: Confusion ED Provider: Robin Che Dx/Rx/DC Orders Clinical Impression: COVID, Fever, Altered level of consciousness, Weakness, Anemia Prescriptions: No Action simvastatin 40 mg tablet 40 mg PO DAILY Label Comments: take 1 tablet by mouth at bedtime sertraline 50 mg tablet 50 mg PO DAILY Label Comments: take 1 tablet by mouth once daily levothyroxine 25 MCG tablet 25 mcg PO DAILY sertraline 100 mg tablet 100 mg PO DAILY Primary Care Provider: jL Wheatley Referrals: Tae Cordova MD [Non-Staff] - Disposition Disposition: Acute Care [facility]
[2022-05-12] MEDS: 0.9% Normal Saline 1,000 ML 999 ML IV (23:37)
[2022-05-12] MEDS: Acetaminophen 500 MG Tablet 1000 MG PO (23:37)
[2022-05-12 23:42] LABS: Mucous, Urine 0 SEEN /hpf (<or=2+); Squamous Epithelial Cells - UA 0 SEEN /hpf (5-10)
[2022-05-12 23:43] LABS: ALB/GLOB Ratio 0.7 RATIO (0.9-2.4); AST(SGOT) 23 U/L (15-37); Alanine Aminotransfer ALT/SGPT 21 U/L (13-56); Albumin, Serum 3.2 g/dL (3.2-5.0); Alkaline Phosphatase 76 U/L (45-117); Anion Gap 7 (5-15); BUN 11 mg/dL (7-18); BUN/Creat Ratio 11.3 RATIO (10-20); Calcium,Total 8.8 mg/dL (8.5-10.1); Chloride 109 mmol/L (98-107); Creatinine, Serum 0.98 mg/dL (0.55-1.02); EST Glomerular Filtration Rate 60 mL/min (>60); Est Glom Filt Rate - Afr Amer 73 mL/min (>60); Estimated Creatinine Clearance 51.43 ml/min; Globulin 4.6 g/dL (2.2-4.2); Glucose 133 mg/dL (74-106); Potassium 4.1 mmol/L (3.5-5.1); Protein, Total 7.8 g/dL (6.4-8.2); Sodium Level 139 mmol/L (136-145)
[2022-05-12 23:44] LABS: Absolute Lymphocyte Count 0.77 X10^3/uL (0.83-4.51); Absolute Neutrophil Count 4.8 X10^3/uL (2.0-7.7); Basophil# 0.05 X10^3/uL; Basophil% 0.8 % (0-1); Eosinophil# 0.06 X10^3/uL; Eosinophils% 0.9 % (0-5); Hematocrit 28.6 % (37-47); Hemoglobin 9.2 g/dL (12.0-15.0); Lymphocyte # 0.77 X10^3/ul (0.83-4.51); Lymphocyte % 12.1 % (19-41); Mean Corp Hgb Conc 32.2 g/dL (32-36); Mean Corpuscular Hgb 29.4 pg (27.0-32.0); Mean Corpuscular Volume 91.4 fL (81-99); Mean Platelet Vol. 9.3 fl (6.2-12.0); Monocyte# 0.56 X10^3/uL; Monocyte% 8.8 % (0-10); NRBC Flagged by Analyzer 0 % (0-5); Neutrophil # 4.84 X10^3/uL (2.7-7.7); Neutrophil % 75.8 % (47-70); Platelet Count 202 K/mm3 (150-450); RBC Distribution Width CV 13.3 % (11.6-14.6); RBC Distribution Width SD 44.6 fl (35.1-43.9); Red Blood Count 3.13 M/mm3 (4.2-5.4); White Blood Count 6.4 K/mm3 (4.4-11.0)
[2022-05-12 23:45] VITALS: RESP 17
[2022-05-12 23:45] LABS: Color, Urine Yellow (Yellow); Glucose, Dipstick Normal (Normal); Ketone-Dipstick Negative (Negative); Leukocyte Esterase-Dipstick 25 /ul (Negative); Nitrite-Dipstick Negative (Negative); Occult Blood-Urine 10 /ul (Negative); Protein-Dipstick 15 mg/dl (Negative); Urine Bilirubin Dipstick Negative (Negative); Urine Clarity Clear (Clear); Urine Urobilinogen 4 mg/dl (Normal)
[2022-05-12 23:51] LABS: Lactic Acid 1.4 mmol/L (0.4-1.9)
[2022-05-12 23:55] LABS: Bacteria RARE /hpf (None Seen); Red Blood Cells-Urine 0-5 SEEN /hpf (0-5); White Blood Cells 0-5 SEEN /hpf (0-5)
[2022-05-13] VITALS (15 sets, daily range): BP systolic 98–141; BP diastolic 44–91; PULSE 89–108; RESP 16–22; TEMP 36.7–38.8; O2SAT 93–99; BMI 29.7
[2022-05-13 00:12] LABS: International Normalized Ratio 1.2; Partial Thromboplast Time 30.4 Seconds (24.1-36.2); Prothrombin Time (Protime)PT. 14.8 SECONDS (11.7-14.9)
--- NOTE | 2022-05-13 00:55 | PCM.HP.STD ---
Documented by User: PATY Crowell 05/13/22 01:04 HPI - General General Date of Admission: 05/13/22 Date of Service: 05/13/22 Chief Complaint: Increased confusion, weakness HPI Narrative ANDRES LEE, is a 66 F who presents increased confusion, altered mental status and confusion. Patient has dementia at baseline but family reports that she has been increasingly confused and not acting herself. Upon presentation to the ER it was noted that patient was febrile with a temperature of 104. Patient has a medical history of dementia, hypothyroidism, depression, hyperlipidemia. Patient's daughter at bedside providing medical history. Patient's vital signs currently stable and patient is on room air. Patient's daughter concerned about taking her home as she is increasingly weak and confused and they are not able to take care of her in her current state. [facility] Medical History Alcohol abuse Drug abuse High cholesterol Hypothyroid Home Medications levothyroxine 25 mcg tablet 25 mcg PO DAILY 12/07/19 [History Last Taken 12/07/19] cetirizine 10 mg tablet (Zyrtec) 10 mg PO DAILY 05/13/22 [History Last Taken Unknown] citalopram 10 mg tablet (Celexa) 10 mg PO DAILY 05/13/22 [History Last Taken Unknown] clonazepam 1 mg tablet 1 mg PO QHS 05/13/22 [History Last Taken Unknown] donepezil 5 mg tablet 5 mg PO DAILY 05/13/22 [History Last Taken Unknown] memantine 28 mg capsule sprinkle,extended release 24hr (Namenda XR) 28 mg PO DAILY 05/13/22 [History Last Taken Unknown] rosuvastatin 10 mg tablet (Crestor) 10 mg PO DAILY 05/13/22 [History Last Taken Unknown] venlafaxine 150 mg capsule,extended release 24 hr (Effexor XR) 150 mg PO DAILY 05/13/22 [History Last Taken Unknown] Allergy/AdvReac Type Severity Reaction Status Date / Time naproxen Allergy Unknown Unknown Verified 01/24/20 09:31 STATES HAS 1 ALLERGY, NOT AdvReac NOT KNOWN Uncoded 12/07/19 13:13 KNOWN Family History Son No problems noted. Father Alcoholism Other Hyperlipidemia Thyroid disorder Surgical History History of tonsillectomy Social History Smoking Status: Former smoker Tobacco: How many years used: 3 second hand exposure: No alcohol intake: never substance use type: does not use caffeine: Yes ROS Constitutional Constitutional: Reports chills, fever(s), malaise and weakness; Denies anorexia or fatigue Cardiovascular Cardiovascular: Denies chest pain, edema, palpitations or syncope Respiratory/Chest Respiratory/Chest: Denies cough, shortness of breath at rest, shortness of breath with exertion or wheezing Gastrointestinal Gastrointestinal: Denies abdominal pain, constipation, diarrhea, nausea or vomiting Genitourinary Genitourinary: Denies dysuria Musculoskeletal Musculoskeletal: Denies back pain, extremity pain, joint pain or joint stiffness Integumentary Integumentary: Denies dry skin Neurologic Neurologic: Denies abnormal gait, abnormal speech, confusion or dizziness Psychiatric Psychiatric: Reports anxiety and cognitive impairment Endocrine Endocrinology: Denies change in body appearance Vital Signs Vital Signs Vital Signs: 05/12/22 22:41 05/12/22 22:49 05/12/22 23:17 Temperature 102.9 F H 102.9 F H Temperature Source Oral Oral Pulse Rate 118 H 117 H Respiratory Rate 24 H 22 H Blood Pressure 133/61 H 133/61 H Blood Pressure Mean 85 85 Pulse Ox 98 95 96 Oxygen Delivery Method Room Air Room Air Room Air 05/12/22 23:45 05/13/22 00:07 05/13/22 00:10 Temperature 101.9 F H Temperature Source Core Pulse Rate 98 Respiratory Rate 17 22 H Blood Pressure 141/69 H Blood Pressure Mean 93 Pulse Ox 99 98 Oxygen Delivery Method Room Air Room Air Weight Weight: 188 lb 14.978 oz Body Mass Index (BMI) 30.4 Physical Exam Const alert General Appearance: anxious Orientation / Consciousness: awake and oriented to person HEENT normocephalic, head/scalp atraumatic and moist oral mucous membranes Eyes conjunctivae normal and no scleral icterus Neck no lymphadenopathy and supple General: trachea midline Resp normal respiratory effort, normal air movement and clear to auscultation bilaterally Cardio regular rate, regular rhythm, S1 normal heart sound, S2 normal heart sound and peripheral pulses 2+ throughout Rate: tachycardic GI normal to inspection, nondistended, normoactive bowel sounds, soft to palpation and non-tender Extremity normal capillary refill and no clubbing, cyanosis or edema Skin Lesions: no lesions Rashes: no rashes Neuro no focal motor deficits and no sensory deficits noted Speech: speech normal Psych cooperative; Negative for thought process normal Mood & Affect: tearful Results Lab / Micro Data Result Diagrams: 05/12/22 22:50 05/12/22 22:50 Labs: Laboratory Results - last 24 hr 05/12/22 22:50: WBC 6.4, RBC 3.13 L, Hgb 9.2 L, Hct 28.6 L, MCV 91.4, MCH 29.4, MCHC 32.2, RDW Std Deviation 44.6 H, RDW Coeff of Rosalba 13.3, Plt Count 202, MPV 9.3, Immature Gran % (Auto) 1.600 H, Neut % (Auto) 75.8 H, Lymph % (Auto) 12.1 L, [place] % (Auto) 8.8, Eos % (Auto) 0.9, Baso % (Auto) 0.8, Absolute Neuts (auto) 4.8, Absolute Lymphs (auto) 0.77 L, Nucleated RBC % 0 05/12/22 22:50: PT 14.8, INR 1.2, APTT 30.4 05/12/22 22:50: Sodium 139, Potassium 4.1, Chloride 109 H, Carbon Dioxide 23.0, Anion Gap 7, BUN 11, Creatinine 0.98, Estim Creat Clear Calc 51.43, Est GFR (MDRD) Af Amer 73, Est GFR (MDRD) Non-Af 60, BUN/Creatinine Ratio 11.3, Glucose 133 H, Calcium 8.8, Total Bilirubin 0.50, AST 23, ALT 21, Alkaline Phosphatase 76, Total Protein 7.8, Albumin 3.2, Globulin 4.6 H, Albumin/Globulin Ratio 0.7 L 05/12/22 22:50: Lactic Acid 1.4 05/12/22 23:30: Urine Color Yellow, Urine Clarity Clear, Urine pH 7.0, Ur Specific [place] 1.010, Urine Protein 15 H, Urine Glucose (UA) Normal, Urine Ketones Negative, Urine Occult Blood 10 H, Urine Nitrite Negative, Urine Bilirubin Negative, Urine Urobilinogen 4 H, Ur Leukocyte Esterase 25 H, Urine RBC 0-5 SEEN, Urine WBC 0-5 SEEN, Ur Squamous Epith Cells 0 SEEN, Urine Bacteria RARE, Urine Mucus 0 SEEN Micro: Microbiology 05/12/22 23:30 Nasal Secretion SARS-CoV-2 Antigen (Rapid) - Final SARS-CoV-2 (COVID 19) Rhythm Strip Rhythm Strip: Sinus Tach Rate: 115 Ectopy: None Radiology Impression Chest X-Ray 05/12/22 23:17 IMPRESSION: No acute pulmonary disease. Electronically Signed: Guero Aiken MD at 0:03 EDT , Assessment & Plan Assessment/Plan (1) COVID: PLAN: Plan 1. Metabolic encephalopathy secondary to COVID -Admit to MedSurg -CBC, BMP, TSH in a.m. -Case management, PT and OT consulted -COVID precautions -Difficult to determine patient's worsening altered mental status secondary to baseline dementia 2. Anemia -Hemoglobin 9.2, down from 13.1 in October -Family denies any blood in stool or other signs and symptoms of bleeding -CBC daily 3. Hypothyroidism -Continue levothyroxine -TSH in a.m. 4. Hyperlipidemia -Continue simvastatin 5. Dementia -Continue memantine DVT prophylaxis-subcu Lovenox This patient was seen by Madyson Hurtado NP-C under the supervision of Dr. Frances. 29 minutes spent in clinical coordination of patient's plan of care. Documented by User: Dr. Myles Frances MD 05/13/22 01:18 HPI - General General Date of Admission: 05/13/22 [facility] Medical History Alcohol abuse Drug abuse High cholesterol Hypothyroid Home Medications levothyroxine 25 mcg tablet 25 mcg PO DAILY 12/07/19 [History Last Taken 12/07/19] cetirizine 10 mg tablet (Zyrtec) 10 mg PO DAILY 05/13/22 [History Last Taken Unknown] citalopram 10 mg tablet (Celexa) 10 mg PO DAILY 05/13/22 [History Last Taken Unknown] clonazepam 1 mg tablet 1 mg PO QHS 05/13/22 [History Last Taken Unknown] donepezil 5 mg tablet 5 mg PO DAILY 05/13/22 [History Last Taken Unknown] memantine 28 mg capsule sprinkle,extended release 24hr (Namenda XR) 28 mg PO DAILY 05/13/22 [History Last Taken Unknown] rosuvastatin 10 mg tablet (Crestor) 10 mg PO DAILY 05/13/22 [History Last Taken Unknown] venlafaxine 150 mg capsule,extended release 24 hr (Effexor XR) 150 mg PO DAILY 05/13/22 [History Last Taken Unknown] Allergy/AdvReac Type Severity Reaction Status Date / Time naproxen Allergy Unknown Unknown Verified 01/24/20 09:31 STATES HAS 1 ALLERGY, NOT AdvReac NOT KNOWN Uncoded 12/07/19 13:13 KNOWN Family History Son No problems noted. Father Alcoholism Other Hyperlipidemia Thyroid disorder Surgical History History of tonsillectomy Social History Smoking Status: Former smoker Tobacco: How many years used: 3 second hand exposure: No alcohol intake: never substance use type: does not use caffeine: Yes Results Lab / Micro Data Result Diagrams: 05/12/22 22:50 05/12/22 22:50 Assessment & Plan Assessment/Plan (1) COVID: Charges/Coding Addendum Addendum: Patient was seen and examined independently. I agree with assessment and plan by Madyson Hurtado NP-C. Patient with significant history of hypothyroidism and dementia who presents to the emergency department with 2-day history of progressively worsening malaise. Associated with her symptoms is altered mental status above her baseline dementia. Reportedly patient had subjective fever and chills. Physical exam: General: Well-nourished, well-developed. Head: Normocephalic, atraumatic, no tenderness Eyes: Vision is grossly intact. EOMI ENT, no trauma, moist mucous membranes, no rhinorrhea Neck: Nontender, full range of motion CVS: Regular rate and rhythm. S1-S2 present. No murmur, gallop or rub. Respiratory : clear to auscultation bilaterally, chest wall nontender, no wheezing Abdomen: Soft, nontender, nondistended, normal bowel sounds, no masses : Deferred Back: Nontender, no CVA tenderness, no midline spinal tenderness, deformities, step-offs Extremities: Nontender full range of motion, no trauma Skin: Normal color, no trauma, abrasions Neuro: Alert. Patient does not know the month or the year. She does that she is in the state of [place]. However she does not answer the question to the city where she is at. Psychiatry: Crying because she was staying at the hospital. Assessment and plan Acute metabolic encephalopathy in the setting of baseline dementia Acute metabolic encephalopathy secondary to COVID-19 infection. Urinalysis is unimpressive. COVID-19 infection T-max of 102.9 Fahrenheit at the hospital; tachycardia on presentation. Rapid COVID antigen negative. Patient is not hypoxic. Clinical monitoring. Tylenol for fever Debility secondary to COVID-19 PT and OT to work with patient. Case management consult for disposition. Hypothyroidism In the setting of debility and encephalopathy TSH ordered. Synthroid continued. Anemia Hemoglobin of 9.2 on presentation. Of note her hemoglobin on 10/24/2021 was 13.1. Emergency department doctor reports no blood and no stool on rectal exams. Check occult stools. Check iron studies. Vitamin B12 and folic acid ordered. Trend CBC DVT prophylaxis: Subcutaneous Lovenox ordered. Subcutaneous Lovenox. Visit Charges OBSV E&M: 36473 Initial observation care L3
[2022-05-13 05:31] LABS: Absolute Lymphocyte Count 1.42 X10^3/uL (0.83-4.51); Absolute Neutrophil Count 3.9 X10^3/uL (2.0-7.7); Basophil# 0.03 X10^3/uL; Basophil% 0.5 % (0-1); Eosinophil# 0.05 X10^3/uL; Eosinophils% 0.8 % (0-5); Hemoglobin 12.3 g/dL (12.0-15.0); Lymphocyte # 1.42 X10^3/ul (0.83-4.51); Lymphocyte % 23.4 % (19-41); Mean Corp Hgb Conc 33.2 g/dL (32-36); Mean Corpuscular Hgb 29.6 pg (27.0-32.0); Mean Corpuscular Volume 89.2 fL (81-99); Mean Platelet Vol. 8.9 fl (6.2-12.0); Monocyte# 0.61 X10^3/uL; NRBC Flagged by Analyzer 0 % (0-5); Neutrophil # 3.94 X10^3/uL (2.7-7.7); Platelet Count 223 K/mm3 (150-450); RBC Distribution Width CV 13.5 % (11.6-14.6); RBC Distribution Width SD 44.1 fl (35.1-43.9); Red Blood Count 4.15 M/mm3 (4.2-5.4); Reticulocyte Count 1.08 % (0.5-1.5); White Blood Count 6.1 K/mm3 (4.4-11.0)
[2022-05-13] MEDS: Levothyroxine 25 MCG TABLET PO (05:43)
[2022-05-13 06:15] LABS: Anion Gap 6 (5-15); BUN 10 mg/dL (7-18); BUN/Creat Ratio 11.2 RATIO (10-20); Calcium,Total 8.5 mg/dL (8.5-10.1); Chloride 110 mmol/L (98-107); Creatinine, Serum 0.89 mg/dL (0.55-1.02); EST Glomerular Filtration Rate 67 mL/min (>60); Est Glom Filt Rate - Afr Amer 81 mL/min (>60); Estimated Creatinine Clearance 56.63 ml/min; Ferritin 187 ng/mL (8-252); Glucose 117 mg/dL (74-106); Iron 24 ug/dL (50-170); Iron Binding Capacity,Total 259 ug/dL (250-450); PERCENT IRON SATURATION 9.3 % (15.0-55.0); Sodium Level 142 mmol/L (136-145); Thyroid Stim Hormone (TSH) 0.39 uIU/mL (0.358-3.74)
[2022-05-13 08:23] LABS: Vitamin B12 344 pg/mL (211-911)
--- NOTE | 2022-05-13 09:26 | CASEMGMT ---
JAKE ELIZABETH Assessment: TC to pt dtr Srini Matt for initial transition planning/care coordination assessment as pt has confusion with history of dementia. She states she is almost at the hospital. When she arrived, met with her in [facility]. JAKE ELIZABETH introduced self and role at [facility], pt dtr voices understanding and consents to assessment. Care providers, pharmacy, and demographics verified/updated. Admitting Dx: COVID, debility PCP:[facility] Specialists:[facility], neuro; an appt is made for new psychiatrist or psychologist at [facility], she is not sure which. Preferred Pharmacy: [place] Insurance: [facility] Dual Prescription Benefit: yes LW/HPOA: Pt does not have a LW/DPOA. Srini is the only child. LNOK: Srini Matt, dtr; Emmett Wagner, brother Living Arrangements: Pt lives with dtr and jerome in a two story house with a few steps to enter without a rail. Pt dtr states pt is able to perform ADL's independently. She states pt lives on the second level of the home and most recently has had great L knee pain that causes her to be in tears in the morning and gets better by end of day. Transportation: Pt dtr transports her to medical appts. Pt also goes to [place] 5 days per week. DME/HHC/SNF: Pt does not have any DME in the home, has no previous hx of HHC or SNF stays. Pt dtr states she is having a hard time caring for pt. States she does not have the patience. Pt can only be left for short periods of time and she has Ring cameras to watch her when she is gone. She reports they have a [place]OL[place] waiver that is in process and they are in contact with [facility]. She states she would like her mother to go to a facility preferrable [facility]. Discussed that the COVID dx may limit the availability of facilities. Updated SW. Pt dtr states pt is starting to not recognize people such as her grandchildren and she does not have sense of time. She also reports pt has been sober for 15-20 years from alcohol. Pt dtr states no further concerns/needs. CM to follow. Advised pt dtr to ask CM if any further question/concerns/needs arise, voices understanding. Pt dtr Goal: SNF Plan: TBD
--- NOTE | 2022-05-13 09:35 | PN.HOSP_ITS ---
Subjective Subjective Patient seen and examined. SHe looks lethargic and appears a bit confused though she is able to answer questions. She denies any fever, chills, cough, chest pain, palpitaitons, dizziness, nausea, vomiting or diarrhea. Review of systems is otherwise negative. Objective Data Objective Data Vital Signs: Vital Signs Temp Pulse Resp BP Pulse Ox O2 Del Method 98.1 F 89 16 107/44 L 96 Room Air 05/13/22 05:42 05/13/22 05:42 05/13/22 05:42 05/13/22 05:42 05/13/22 05:42 05/13/22 05:42 Oxygen Delivery Method Room Air Weight: 184 lb 1.376 oz Body Mass Index (BMI) 29.7 Intake & Output: Intake and Output for Last 24 Hours 05/11/22 05/12/22 05/13/22 23:59 23:59 23:59 Intake Total 1500 / 1500 Output Total 975 / 975 Balance 525 / 525 Lab / Micro Data Result Diagrams: 05/13/22 05:22 05/13/22 05:22 Labs: Laboratory Results - last 24 hr 05/12/22 22:50: WBC 6.4, RBC 3.13 L, Hgb 9.2 L, Hct 28.6 L, MCV 91.4, MCH 29.4, MCHC 32.2, RDW Std Deviation 44.6 H, RDW Coeff of Rosalba 13.3, Plt Count 202, MPV 9.3, Immature Gran % (Auto) 1.600 H, Neut % (Auto) 75.8 H, Lymph % (Auto) 12.1 L , [place] % (Auto) 8.8, Eos % (Auto) 0.9, Baso % (Auto) 0.8, Absolute Neuts (auto) 4.8, Absolute Lymphs (auto) 0.77 L, Nucleated RBC % 0 05/12/22 22:50: PT 14.8, INR 1.2, APTT 30.4 05/12/22 22:50: Sodium 139, Potassium 4.1, Chloride 109 H, Carbon Dioxide 23.0, Anion Gap 7, BUN 11, Creatinine 0.98, Estim Creat Clear Calc 51.43, Est GFR (MDRD) Af Amer 73, Est GFR (MDRD) Non-Af 60, BUN/Creatinine Ratio 11.3, Glucose 133 H, Calcium 8.8, Total Bilirubin 0.50, AST 23, ALT 21, Alkaline Phosphatase 76, Total Protein 7.8, Albumin 3.2, Globulin 4.6 H, Albumin/Globulin Ratio 0.7 L 05/12/22 22:50: Lactic Acid 1.4 05/12/22 23:30: Urine Color Yellow, Urine Clarity Clear, Urine pH 7.0, Ur Specific [place] 1.010, Urine Protein 15 H, Urine Glucose (UA) Normal, Urine Ketones Negative, Urine Occult Blood 10 H, Urine Nitrite Negative, Urine Bilirubin Negative, Urine Urobilinogen 4 H, Ur Leukocyte Esterase 25 H, Urine RBC 0-5 SEEN, Urine WBC 0-5 SEEN, Ur Squamous Epith Cells 0 SEEN, Urine Bacteria RARE, Urine Mucus 0 SEEN 05/13/22 05:22: WBC 6.1, RBC 4.15 L, Hgb 12.3, Hct 37.0, MCV 89.2, MCH 29.6, MCHC 33.2, RDW Std Deviation 44.1 H, RDW Coeff of Rosalba 13.5, Plt Count 223, MPV 8.9, Immature Gran % (Auto) 0.300, Neut % (Auto) 65.0, Lymph % (Auto) 23.4, [place] % (Auto) 10.0, Eos % (Auto) 0.8, Baso % (Auto) 0.5, Absolute Neuts (auto) 3.9, Absolute Lymphs (auto) 1.42, Nucleated RBC % 0, Retic Count 1.08, Immature Retic Fraction 12.70, Retic Hgb Equivalent 30.0 05/13/22 05:22: Sodium 142, Potassium 4.0, Chloride 110 H, Carbon Dioxide 26.0, Anion Gap 6, BUN 10, Creatinine 0.89, Estim Creat Clear Calc 56.63, Est GFR (MDRD) Af Amer 81, Est GFR (MDRD) Non-Af 67, BUN/Creatinine Ratio 11.2, Glucose 117 H, Calcium 8.5, Iron 24 L, TIBC 259, Iron Saturation 9.3 L, Ferritin 187, TSH 0.39 05/13/22 05:22: Vitamin B12 344 Micro: Microbiology 05/12/22 23:30 Nasal Secretion SARS-CoV-2 Antigen (Rapid) - Final SARS-CoV-2 (COVID 19) Radiography Diagnostic Testing: Radiology Impression Chest X-Ray 05/12/22 23:17 IMPRESSION: No acute pulmonary disease. Electronically Signed: Guero Aiken MD at 0:03 EDT , Rhythm Strip Rhythm Strip: Sinus Tach Rate: 115 Ectopy: None Physical Exam Const alert Orientation / Consciousness: confused HEENT head/scalp atraumatic Head and Scalp: normocephalic Mouth: dry mucous membranes Eyes PERRL, EOMs intact bilaterally and conjunctivae normal Neck no lymphadenopathy, supple and no JVD Resp normal respiratory effort, no retractions, no use of accessory muscles and clear to auscultation bilaterally Cardio regular rate, regular rhythm, S1 normal heart sound, S2 normal heart sound and no murmurs GI normal to inspection, nondistended, normoactive bowel sounds, soft to palpation, non-tender and non-distended Extremity normal to inspection, full ROM and no clubbing, cyanosis or edema Neuro oriented x3, CN's II-XII intact bilaterally, moves all extremities and no focal motor deficits Sensorium / Orientation: awake and alert Speech: speech normal Motor Exam: strength 5/5 throughout Psych Psych Narrative: flat affect Assessment & Plan Assessment/Plan (1) COVID: (2) Fever: (3) Weakness: PLAN: Plan #COVID 19 infection * on room air * patient is lethargic and confused * has mild fever this morning * supportive treatment as she is on room air * #Debility due to covid 19 infection * PT/OT on board. * fall precautions * #Hypothyroidism: on synthroid #Anemia: hemoglobin is 9.2. Iron studies showed iron saturation of 9.3%. Stool for occult blood ordered. #Hyperlipidemia: on statin #DEpression: on effexor #Dementia: on donepezil and memantine DVT prophylaxis: lovenox Charges/Coding Visit Charges Inpatient E&M: 42250 Subs Hosp L2
[2022-05-13] MEDS: Enoxaparin 40 MG/0.4 ML Syringe SC (09:45)
[2022-05-13] MEDS: Citalopram 10 MG Tablet PO (09:45)
[2022-05-13] MEDS: Venlafaxine XR 150 MG Capsule PO (09:45)
[2022-05-13] MEDS: Donepezil HCl 5 MG Tablet PO (09:45)
[2022-05-13] MEDS: Memantine Hydrochloride 10 MG Tablet PO ×2 (09:45→21:20)
[2022-05-13] MEDS: Acetaminophen 325 MG Tablet 650 MG PO ×2 (09:48→21:19)
--- NOTE | 2022-05-13 11:17 | CASEMGMT ---
Social Work SW received referral from RNCM that pt's dgt is requesting SNF placement. Facility of choice is [facility]. Pt did test positive for Covid on 05/12. SW met with pt dgt and discussed very limited SNF options due to Covid positive and insurance network. A list of SNF providers including quality and resource use data and consistent with the patient?s preferred geographic region, medical needs, and insurance network were provided from the [facility]. Dgt was updated that SW has left VM with [facility] to inquire about Covid acceptance but they have previously not accepted. SW informed dgt that [facility] is able to accept Covid pts and has one room available. Multiple phone calls have been placed to other [facility] facilities and no other options have been found at this time. Dgt also inquiring about [facility]. SW placed call and they do not accept active Covid pts at this time. Dgt updated and is agreeable to referral to [facility]. REY Burch mortgage assistant, updated and will send referral. Plan: [facility], pending acceptance and precert SEDRICK Mckeon
--- NOTE | 2022-05-13 11:25 | CASEMGMT ---
Discharge Cocoa Powder Mixer Operator Kiersten schmidt/alondra assistant paralegal sent referral to [facility] via [facility]. Will follow up. Plan: [facility], Waiting Acceptance Kiersten Jenkins Discharge Cocoa Powder Mixer Operator
--- NOTE | 2022-05-13 14:05 | CASEMGMT ---
Discharge Supervisor Cabinetmaker Maty reached out from [facility] [place]. Patient has been accepted and Maty will start pre-cert. VINAY Will notified. Plan: [facility], Waiting pre-cert Kiersten Jenkins Discharge Supervisor Cabinetmaker
--- NOTE | 2022-05-13 14:24 | CASEMGMT ---
Social Work Per d/c contact center assistant pt has been accepted at [facility] and precert has been started. Phone call placed to pt dgt and updated. She is agreeable and made aware that insurance precert is needed prior to discharge. Plan: [facility], pending precert SEDRICK Mckeon
[2022-05-13] MEDS: clonazePAM 1 MG Tablet PO (21:19)
[2022-05-13] MEDS: Atorvastatin Calcium 20 MG Tablet PO (21:20)
[2022-05-14] VITALS (8 sets, daily range): BP systolic 97–122; BP diastolic 52–66; PULSE 83–88; RESP 16–18; TEMP 36.7–36.8; O2SAT 92–96
[2022-05-14] MEDS: Levothyroxine 25 MCG TABLET PO (04:04)
[2022-05-14 08:28] LABS: Absolute Lymphocyte Count 1.31 X10^3/uL (0.83-4.51); Absolute Neutrophil Count 3.8 X10^3/uL (2.0-7.7); Basophil# 0.03 X10^3/uL; Basophil% 0.5 % (0-1); Eosinophil# 0.09 X10^3/uL; Eosinophils% 1.5 % (0-5); Hematocrit 37.7 % (37-47); Hemoglobin 12.5 g/dL (12.0-15.0); Lymphocyte # 1.31 X10^3/ul (0.83-4.51); Lymphocyte % 22.1 % (19-41); Mean Corp Hgb Conc 33.2 g/dL (32-36); Mean Corpuscular Hgb 29.2 pg (27.0-32.0); Mean Corpuscular Volume 88.1 fL (81-99); Mean Platelet Vol. 8.7 fl (6.2-12.0); Monocyte# 0.74 X10^3/uL; Monocyte% 12.5 % (0-10); NRBC Flagged by Analyzer 0 % (0-5); Neutrophil # 3.76 X10^3/uL (2.7-7.7); Neutrophil % 63.2 % (47-70); Platelet Count 256 K/mm3 (150-450); RBC Distribution Width CV 13.3 % (11.6-14.6); RBC Distribution Width SD 42.9 fl (35.1-43.9); Red Blood Count 4.28 M/mm3 (4.2-5.4); White Blood Count 5.9 K/mm3 (4.4-11.0)
[2022-05-14 09:01] LABS: Anion Gap 7 (5-15); BUN 10 mg/dL (7-18); BUN/Creat Ratio 13.2 RATIO (10-20); Calcium,Total 8.5 mg/dL (8.5-10.1); Chloride 107 mmol/L (98-107); Creatinine, Serum 0.76 mg/dL (0.55-1.02); EST Glomerular Filtration Rate 80 mL/min (>60); Est Glom Filt Rate - Afr Amer 97 mL/min (>60); Estimated Creatinine Clearance 50.41 ml/min; Glucose 121 mg/dL (74-106); Sodium Level 139 mmol/L (136-145)
[2022-05-14] MEDS: Enoxaparin 40 MG/0.4 ML Syringe SC (09:34)
[2022-05-14] MEDS: Memantine Hydrochloride 10 MG Tablet PO ×2 (09:34→22:34)
[2022-05-14] MEDS: Venlafaxine XR 150 MG Capsule PO (09:34)
[2022-05-14] MEDS: Citalopram 10 MG Tablet PO (09:34)
[2022-05-14] MEDS: Donepezil HCl 5 MG Tablet PO (09:34)
--- NOTE | 2022-05-14 09:37 | CASEMGMT ---
Discharge [place] Kiersten schmidt/alondra front desk assistant got a call from Maty at the [facility]. Maty received a call from patient insurance and insurance was requesting therapy notes and then stated they are not sure if patient is medically ready. Insurance is requesting Dr. Kenny to put in a note stating patient is medically ready for discharge to a lower level or care such and a [facility] Facility. VINAY Will notified. Plan: [facility], When medically ready Kiersten Jenkins Discharge [place]
--- NOTE | 2022-05-14 10:11 | CASEMGMT ---
JAKE ELIZABETH made tc to discuss [employer] form with patient dtr. JAKE ELIZABETH explained [employer] form, patient dtr voiced understanding. Pt dtr gave verbal consentfor signature on form and filed in chart. Pt provided with a copy of signed [employer]AS form. Patient dtr had no further questions or concerns at this time.
--- NOTE | 2022-05-14 10:22 | CASEMGMT ---
Social Work Plan is for pt to go to SNF at time of discharge. Upon discussion with pt's dgt, pt has been declining at home related to dementia and overall functional decline and Dgt has been working with [facility] to obtain an assisted living waiver for termite exterminator placement at [facility]. Pt dgt does not feel she can care for pt at home any longer. At this time, due to medical illness and functional decline, pt will require short term SNF for rehab with a plan to eventually transfer to assisted living. PASRR completed for SNF admission. Pt does present with metabolic encephalopathy related to Covid infection. This diagnosis is not the reason for pt need for assisted living which was apparent to family prior to this current illness. This information was reflected on section F of PASRR. SW will continue to follow for SNF placement. SEDRICK Mckeon
--- NOTE | 2022-05-14 11:17 | PN.HOSP_ITS ---
Subjective Subjective Patient seen and examined. She is feeling better today. She is much more alert and communicative today. She denied any fever, chills, cough, chest pain, palpitations, dizziness, nausea, vomiting or diarrhea. Review of systems is otherwise negative. Objective Data Objective Data Vital Signs: Vital Signs Temp Pulse Resp BP Pulse Ox O2 Del Method 98.1 F 85 16 97/52 L 92 Room Air 05/14/22 09:33 05/14/22 09:33 05/14/22 09:33 05/14/22 09:33 05/14/22 09:33 05/14/22 09:55 Oxygen Delivery Method Room Air Weight: 184 lb 1.376 oz Body Mass Index (BMI) 29.7 Intake & Output: Intake and Output for Last 24 Hours 05/12/22 05/13/22 05/14/22 23:59 23:59 23:59 Intake Total 1600 / 1600 Output Total 1625 / 1625 900 / 900 Balance -25 / -25 -900 / -900 Lab / Micro Data Result Diagrams: 05/14/22 08:20 05/14/22 08:20 Labs: Laboratory Results - last 24 hr 05/14/22 08:20: WBC 5.9, RBC 4.28, Hgb 12.5, Hct 37.7, MCV 88.1, MCH 29.2, MCHC 33.2, RDW Std Deviation 42.9, RDW Coeff of Rosalba 13.3, Plt Count 256, MPV 8.7, Immature Gran % (Auto) 0.200, Neut % (Auto) 63.2, Lymph % (Auto) 22.1, [place] % (Auto) 12.5 H, Eos % (Auto) 1.5, Baso % (Auto) 0.5, Absolute Neuts (auto) 3.8, Absolute Lymphs (auto) 1.31, Nucleated RBC % 0 05/14/22 08:20: Sodium 139, Potassium 4.0, Chloride 107, Carbon Dioxide 25.0, Anion Gap 7, BUN 10, Creatinine 0.76, Estim Creat Clear Calc 50.41, Est GFR (MDRD) Af Amer 97, Est GFR (MDRD) Non-Af 80, BUN/Creatinine Ratio 13.2, Glucose 121 H, Calcium 8.5 Micro: Microbiology 05/12/22 23:30 Nasal Secretion SARS-CoV-2 Antigen (Rapid) - Final SARS-CoV-2 (COVID 19) Rhythm Strip Rhythm Strip: Sinus Tach Rate: 115 Ectopy: None Physical Exam Const alert, oriented x3 and no apparent distress Orientation / Consciousness: awake and oriented to person HEENT normocephalic, head/scalp atraumatic, moist oral mucous membranes and oropharynx normal Head and Scalp: normocephalic Mouth: oral and palatal mucosa normal Eyes PERRL, EOMs intact bilaterally, conjunctivae normal and no scleral icterus Neck no lymphadenopathy, supple and no JVD General: trachea midline Resp normal respiratory effort, normal air movement, no retractions, no use of accessory muscles and clear to auscultation bilaterally Cardio regular rate, regular rhythm, S1 normal heart sound, S2 normal heart sound, no murmurs and peripheral pulses 2+ throughout GI normal to inspection, nondistended, normoactive bowel sounds, soft to palpation, non-tender and non-distended Extremity normal to inspection, full ROM, normal capillary refill and no clubbing, cyanosis or edema Skin Lesions: no lesions Rashes: no rashes Neuro oriented x3, CN's II-XII intact bilaterally, moves all extremities, no focal motor deficits and no sensory deficits noted Sensorium / Orientation: awake and alert Speech: speech normal Motor Exam: strength 5/5 throughout Psych cooperative; Negative for thought process normal Psych Narrative: flat affect Assessment & Plan Assessment/Plan (1) COVID: (2) Fever: (3) Weakness: PLAN: Plan #COVID 19 infection * on room air * patient is much more alert and oriented and communicative * supportive treatment as she is on room air * #Debility due to covid 19 infection * PT/OT on board. * fall precautions * #Hypothyroidism: on synthroid #Anemia: Hb today is 12.5. Iron studies showed iron saturation of 9.3%. Stool for occult blood ordered and pending #Hyperlipidemia: on statin #DEpression: on effexor #Dementia: on donepezil and memantine DVT prophylaxis: lovenox Charges/Coding Visit Charges Inpatient E&M: 82051 Subs Hosp L2
[2022-05-14 15:08] LABS: Folate, RBC (Hct) Test 36.9 % (34.0-46.6)
[2022-05-14 15:46] LABS: Folates, RBC Test 1409 ng/mL (>498)
--- NOTE | 2022-05-14 16:13 | CASEMGMT ---
Discharge Transmission Builder Kiersten sent 05/14/2022 Dr. Reece progress note via [facility] to Maty at [facility] Plan: [facility] Yenni Jenkins Discharge Transmission Builder
--- NOTE | 2022-05-14 16:44 | CASEMGMT ---
Social Work Precert has not yet been obtained for pt to go to [facility]. VM left with pt dgt Srini informing that discharge is not today. If precert is obtained over the weekend, pt may discharge. Plan: [facility], skilled level of care., Pending precert SEDRICK Mckeon
[2022-05-14] MEDS: clonazePAM 1 MG Tablet PO (22:34)
[2022-05-14] MEDS: Atorvastatin Calcium 20 MG Tablet PO (22:34)
[2022-05-15 03:30] VITALS: BP 123/66; PULSE 81; RESP 14; TEMP 36.8; O2SAT 94
[2022-05-15 04:00] VITALS: BP 123/66; PULSE 81; RESP 14; TEMP 36.8; O2SAT 94
[2022-05-15] MEDS: Levothyroxine 25 MCG TABLET PO (06:26)
[2022-05-15 06:54] LABS: Absolute Neutrophil Count 2.6 X10^3/uL (2.0-7.7); Basophil# 0.03 X10^3/uL; Basophil% 0.6 % (0-1); Eosinophil# 0.17 X10^3/uL; Eosinophils% 3.2 % (0-5); Hematocrit 37.4 % (37-47); Hemoglobin 12.3 g/dL (12.0-15.0); Lymphocyte % 33.7 % (19-41); Mean Corp Hgb Conc 32.9 g/dL (32-36); Mean Corpuscular Hgb 28.6 pg (27.0-32.0); Mean Platelet Vol. 9.1 fl (6.2-12.0); Monocyte# 0.77 X10^3/uL; Monocyte% 14.4 % (0-10); NRBC Flagged by Analyzer 0 % (0-5); Neutrophil # 2.55 X10^3/uL (2.7-7.7); Neutrophil % 47.7 % (47-70); Platelet Count 263 K/mm3 (150-450); RBC Distribution Width CV 13.2 % (11.6-14.6); RBC Distribution Width SD 41.4 fl (35.1-43.9); White Blood Count 5.3 K/mm3 (4.4-11.0)
[2022-05-15 07:12] LABS: Anion Gap 7 (5-15); BUN 11 mg/dL (7-18); BUN/Creat Ratio 14.6 RATIO (10-20); Calcium,Total 8.6 mg/dL (8.5-10.1); Chloride 105 mmol/L (98-107); Creatinine, Serum 0.75 mg/dL (0.55-1.02); EST Glomerular Filtration Rate 81 mL/min (>60); Est Glom Filt Rate - Afr Amer 98 mL/min (>60); Estimated Creatinine Clearance 50.41 ml/min; Glucose 112 mg/dL (74-106); Potassium 3.6 mmol/L (3.5-5.1); Sodium Level 138 mmol/L (136-145)
[2022-05-15 09:37] VITALS: BP 111/67; PULSE 95; RESP 18; TEMP 36.7; O2SAT 95
[2022-05-15] MEDS: Donepezil HCl 5 MG Tablet PO (09:40)
[2022-05-15] MEDS: QUEtiapine 25 MG Tablet PO ×2 (09:40→20:53)
[2022-05-15] MEDS: Enoxaparin 40 MG/0.4 ML Syringe SC (09:40)
[2022-05-15] MEDS: Citalopram 10 MG Tablet PO (09:40)
[2022-05-15] MEDS: Memantine Hydrochloride 10 MG Tablet PO ×2 (09:40→20:53)
[2022-05-15] MEDS: Venlafaxine XR 150 MG Capsule PO (10:01)
--- NOTE | 2022-05-15 10:26 | PN.HOSP_ITS ---
Subjective Subjective Patient seen and examined. She was lying calmly in bed and had no active complaints. However, her per nurses she was agitated and combative overnight, walking the hallways. Review of systems is otherwise negative. Objective Data Objective Data Vital Signs: Vital Signs Temp Pulse Resp BP Pulse Ox O2 Del Method 98.1 F 95 18 111/67 95 Room Air 05/15/22 09:37 05/15/22 09:37 05/15/22 09:37 05/15/22 09:37 05/15/22 09:37 05/15/22 09:37 Oxygen Delivery Method Room Air Weight: 184 lb 1.376 oz Body Mass Index (BMI) 29.7 Intake & Output: Intake and Output for Last 24 Hours 05/13/22 05/14/22 05/15/22 23:59 23:59 23:59 Intake Total 1600 / 1600 Output Total 1625 / 1625 900 / 900 Balance -25 / -25 -900 / -900 Lab / Micro Data Result Diagrams: 05/15/22 06:20 05/15/22 06:20 Labs: Laboratory Results - last 24 hr 05/13/22 05:22: RBC Folate Hemolysate 520.0, RBC Folate 1409, Hematocrit 36.9 05/15/22 06:20: WBC 5.3, RBC 4.30, Hgb 12.3, Hct 37.4, MCV 87.0, MCH 28.6, MCHC 32.9, RDW Std Deviation 41.4, RDW Coeff of Rosalba 13.2, Plt Count 263, MPV 9.1, Immature Gran % (Auto) 0.400, Neut % (Auto) 47.7, Lymph % (Auto) 33.7, [place] % (Auto) 14.4 H, Eos % (Auto) 3.2, Baso % (Auto) 0.6, Absolute Neuts (auto) 2.6, Absolute Lymphs (auto) 1.80, Nucleated RBC % 0 05/15/22 06:20: Sodium 138, Potassium 3.6, Chloride 105, Carbon Dioxide 26.0, Anion Gap 7, BUN 11, Creatinine 0.75, Estim Creat Clear Calc 50.41, Est GFR (MDRD) Af Amer 98, Est GFR (MDRD) Non-Af 81, BUN/Creatinine Ratio 14.6, Glucose 112 H, Calcium 8.6 Micro: Microbiology 10/05/22 23:30 Urine Catheter - Catheter Urine Culture - Final Culture exhibits no growth. 05/14/22 13:00 Stool Stool Occult Blood (LEO) - Final Occult Blood Positive 05/12/22 23:30 Nasal Secretion SARS-CoV-2 Antigen (Rapid) - Final SARS-CoV-2 (COVID 19) Rhythm Strip Rhythm Strip: Sinus Tach Rate: 115 Ectopy: None Physical Exam Const alert, oriented x3 and no apparent distress General Appearance: anxious Orientation / Consciousness: awake, oriented to person and confused HEENT normocephalic, head/scalp atraumatic, moist oral mucous membranes and oropharynx normal Head and Scalp: normocephalic Mouth: oral and palatal mucosa normal and dry mucous membranes Eyes PERRL, EOMs intact bilaterally, conjunctivae normal and no scleral icterus Neck no lymphadenopathy, supple and no JVD General: trachea midline Resp normal respiratory effort, normal air movement, no retractions, no use of accessory muscles and clear to auscultation bilaterally Cardio regular rate, regular rhythm, S1 normal heart sound, S2 normal heart sound, no murmurs and peripheral pulses 2+ throughout GI normal to inspection, nondistended, normoactive bowel sounds, soft to palpation, non-tender and non-distended Extremity normal to inspection, full ROM, normal capillary refill and no clubbing, cyanosis or edema Skin Lesions: no lesions Rashes: no rashes Neuro oriented x3, CN's II-XII intact bilaterally, moves all extremities, no focal motor deficits and no sensory deficits noted Sensorium / Orientation: awake and alert Speech: speech normal Motor Exam: strength 5/5 throughout Psych cooperative; Negative for thought process normal Psych Narrative: flat affect Assessment & Plan Assessment/Plan (1) COVID: (2) Fever: (3) Weakness: PLAN: Plan #COVID 19 infection * on room air * patient is much more alert and oriented and communicative * supportive treatment as she is on room air * #Debility due to covid 19 infection * PT/OT on board. * fall precautions * #Hypothyroidism: on synthroid #Anemia: Hb today is 12.5. Iron studies showed iron saturation of 9.3%. Stool fo r occult blood ordered and pending #Hyperlipidemia: on statin #DEpression: on effexor #Dementia: * on donepezil and memantine * was agitated overnight and was walking the halls. * start seroquel 25mg bid due to agitation DVT prophylaxis: lovenox Disposition: awaiting placement Charges/Coding Visit Charges Inpatient E&M: 90810 Subs Hosp L2
[2022-05-15 13:08] VITALS: O2SAT 96
[2022-05-15 14:39] VITALS: BP 109/65; PULSE 76; RESP 18; TEMP 36.8; O2SAT 96
[2022-05-15] MEDS: clonazePAM 1 MG Tablet PO (20:53)
[2022-05-15] MEDS: Atorvastatin Calcium 20 MG Tablet PO (20:53)
[2022-05-15 21:00] VITALS: BP 116/61; PULSE 76; RESP 16; TEMP 36.7; O2SAT 95
[2022-05-16 03:00] VITALS: BP 118/63; PULSE 75; RESP 15; TEMP 36.8; O2SAT 94
[2022-05-16] MEDS: Levothyroxine 25 MCG TABLET PO (06:08)
[2022-05-16 07:02] LABS: Absolute Lymphocyte Count 2.22 X10^3/uL (0.83-4.51); Absolute Neutrophil Count 1.8 X10^3/uL (2.0-7.7); Basophil# 0.02 X10^3/uL; Basophil% 0.4 % (0-1); Eosinophil# 0.18 X10^3/uL; Eosinophils% 3.8 % (0-5); Hematocrit 39.6 % (37-47); Hemoglobin 12.8 g/dL (12.0-15.0); Lymphocyte # 2.22 X10^3/ul (0.83-4.51); Lymphocyte % 46.3 % (19-41); Mean Corp Hgb Conc 32.3 g/dL (32-36); Mean Corpuscular Hgb 28.1 pg (27.0-32.0); Mean Platelet Vol. 9.1 fl (6.2-12.0); Monocyte# 0.58 X10^3/uL; Monocyte% 12.1 % (0-10); NRBC Flagged by Analyzer 0 % (0-5); Neutrophil # 1.78 X10^3/uL (2.7-7.7); Neutrophil % 37.2 % (47-70); Platelet Count 291 K/mm3 (150-450); RBC Distribution Width CV 13.2 % (11.6-14.6); RBC Distribution Width SD 42.1 fl (35.1-43.9); Red Blood Count 4.55 M/mm3 (4.2-5.4); White Blood Count 4.8 K/mm3 (4.4-11.0)
[2022-05-16 07:24] LABS: Anion Gap 7 (5-15); BUN 15 mg/dL (7-18); BUN/Creat Ratio 18.8 RATIO (10-20); Calcium,Total 8.8 mg/dL (8.5-10.1); Chloride 104 mmol/L (98-107); EST Glomerular Filtration Rate 76 mL/min (>60); Est Glom Filt Rate - Afr Amer 92 mL/min (>60); Estimated Creatinine Clearance 62.13 ml/min; Glucose 111 mg/dL (74-106); Potassium 3.9 mmol/L (3.5-5.1); Sodium Level 136 mmol/L (136-145)
--- NOTE | 2022-05-16 09:55 | PN.HOSP_ITS ---
Subjective Subjective Patient seen and examined. She had no complaints this morning and an uneventful night. She was on room air. She is awaiting placement. Review of systems otherwise negative. Objective Data Objective Data Vital Signs: Vital Signs Temp Pulse Resp BP Pulse Ox O2 Del Method 98.2 F 75 15 118/63 94 Room Air 05/16/22 03:00 05/16/22 03:00 05/16/22 03:00 05/16/22 03:00 05/16/22 03:00 05/16/22 03:00 Oxygen Delivery Method Room Air Weight: 184 lb 1.376 oz Body Mass Index (BMI) 29.7 Intake & Output: Intake and Output for Last 24 Hours 05/14/22 05/15/22 05/16/22 23:59 23:59 23:59 Intake Total 400 / 800 600 / 600 Output Total 900 / 900 Balance -900 / -900 400 / 800 600 / 600 Lab / Micro Data Result Diagrams: 05/16/22 06:23 05/16/22 06:23 Labs: Laboratory Results - last 24 hr 05/16/22 06:23: WBC 4.8, RBC 4.55, Hgb 12.8, Hct 39.6, MCV 87.0, MCH 28.1, MCHC 32.3, RDW Std Deviation 42.1, RDW Coeff of Rosalba 13.2, Plt Count 291, MPV 9.1, Immature Gran % (Auto) 0.200, Neut % (Auto) 37.2 L, Lymph % (Auto) 46.3 H, [place] % (Auto) 12.1 H, Eos % (Auto) 3.8, Baso % (Auto) 0.4, Absolute Neuts (auto) 1.8 L, Absolute Lymphs (auto) 2.22, Nucleated RBC % 0 05/16/22 06:23: Sodium 136, Potassium 3.9, Chloride 104, Carbon Dioxide 25.0, Anion Gap 7, BUN 15, Creatinine 0.80, Estim Creat Clear Calc 62.13, Est GFR (MDR D) Af Amer 92, Est GFR (MDRD) Non-Af 76, BUN/Creatinine Ratio 18.8, Glucose 111 H, Calcium 8.8 Micro: Microbiology 05/12/22 23:27 Blood Culture (Wb) - Anticubital Left Blood Culture - Preliminary No growth in 48 hours. 05/12/22 22:50 Blood Culture (Wb) - Anticubital Left Blood Culture - Preliminary No growth in 48 hours. 05/12/22 23:30 Urine Catheter - Catheter Urine Culture - Final Culture exhibits no growth. 05/14/22 13:00 Stool Stool Occult Blood (LEO) - Final Occult Blood Positive 05/12/22 23:30 Nasal Secretion SARS-CoV-2 Antigen (Rapid) - Final SARS-CoV-2 (COVID 19) Rhythm Strip Rhythm Strip: Sinus Tach Rate: 115 Ectopy: None Physical Exam Const alert, oriented x3 and no apparent distress Orientation / Consciousness: awake, oriented to person and confused HEENT normocephalic, head/scalp atraumatic, moist oral mucous membranes and oropharynx normal Head and Scalp: normocephalic Mouth: oral and palatal mucosa normal Eyes PERRL, EOMs intact bilaterally and conjunctivae normal Neck no lymphadenopathy, supple and no JVD General: trachea midline Resp normal respiratory effort, normal air movement, no retractions, no use of accessory muscles and clear to auscultation bilaterally Cardio regular rate, regular rhythm, S1 normal heart sound, S2 normal heart sound, no murmurs and peripheral pulses 2+ throughout GI normal to inspection, nondistended, normoactive bowel sounds, soft to palpation, non-tender and non-distended Extremity normal to inspection, full ROM, normal capillary refill and no clubbing, cyanosis or edema Skin Lesions: no lesions Rashes: no rashes Neuro oriented x3, CN's II-XII intact bilaterally, moves all extremities, no focal motor deficits and no sensory deficits noted Sensorium / Orientation: awake and alert Speech: speech normal Motor Exam: strength 5/5 throughout Psych cooperative; Negative for thought process normal Psych Narrative: flat affect Assessment & Plan Assessment/Plan (1) COVID: (2) Fever: (3) Weakness: PLAN: Plan #COVID 19 infection * on room air * patient is much more alert and oriented and communicative * supportive treatment as she is on room air * #Debility due to covid 19 infection * PT/OT on board. * fall precautions * #Hypothyroidism: on synthroid #Anemia: * Hb today is 12.8. Iron studies showed iron saturation of 9.3%. * Stool for occult blood is positive. * Consult gastroenterology #Hyperlipidemia: on statin #DEpression: on effexor #Dementia: * on donepezil and memantine * was agitated overnight and was walking the halls. * start seroquel 25mg bid due to agitation DVT prophylaxis:SCDs; DC lovenox o/a of positive stool for occult blood Disposition: awaiting placement Charges/Coding Visit Charges Inpatient E&M: 08718 Subs Hosp L2
[2022-05-16 11:01] VITALS: BP 114/64; PULSE 81; RESP 18; TEMP 36.1; O2SAT 95
[2022-05-16] MEDS: Memantine Hydrochloride 10 MG Tablet PO ×2 (11:06→20:25)
[2022-05-16] MEDS: Citalopram 10 MG Tablet PO (11:07)
[2022-05-16] MEDS: Donepezil HCl 5 MG Tablet PO (11:07)
[2022-05-16] MEDS: Venlafaxine XR 150 MG Capsule PO (11:07)
[2022-05-16] MEDS: QUEtiapine 25 MG Tablet PO ×2 (11:08→20:25)
[2022-05-16 11:10] VITALS: O2SAT 93
--- NOTE | 2022-05-16 11:34 | PCM.CONS.GEN ---
Assessment & Plan Assessment/Plan (1) Anemia: PLAN: At this time she has not shown any signs of active bleeding. Once her COVID infection has resolved we can pursue possible endoscopy to evaluate upper and lower GI tract for acute on chronic blood loss anemia. Recommend PPI therapy with 40 mg of pantoprazole once a day for now. Continue to trend hemoglobin. No contraindication for anticoagulation at this time to prevent blood clot in the setting of active COVID infection. HPI Consult Data Date of Consult: 05/16/22 HPI Narrative Reason for Consultation: anemia HPI Narrative: ANDRES LEE, is a 67 F who presents to the ED with weakness and fatigue. She lives at home is a history of dementia.? Family is with her.? Says she just really was not her self today.? She had normal oral intake.? They did not notice any fever at home but here she is 102.9.? There is been no vomiting or diarrhea.? No significant cough.? No complaint of abdominal pain.? No complaint of dysuria.? No rashes.? She has had no recent hospitalization. She was discovered to have an active COVID infection and also discovered to be anemic. She had her stools checked for blood and there were positive. Her last hemoglobin was 12.8. [facility] Medical History Alcohol abuse Drug abuse High cholesterol Hypothyroid Home Medications levothyroxine 25 mcg tablet 25 mcg PO DAILY 12/07/19 [History Last Taken 12/07/19] cetirizine 10 mg tablet (Zyrtec) 10 mg PO DAILY 05/13/22 [History Last Taken Unknown] citalopram 10 mg tablet (Celexa) 10 mg PO DAILY 05/13/22 [History Last Taken Unknown] clonazepam 1 mg tablet 1 mg PO QHS 05/13/22 [History Last Taken Unknown] donepezil 5 mg tablet 5 mg PO DAILY 05/13/22 [History Last Taken Unknown] memantine 28 mg capsule sprinkle,extended release 24hr (Namenda XR) 28 mg PO DAILY 05/13/22 [History Last Taken Unknown] rosuvastatin 10 mg tablet (Crestor) 10 mg PO DAILY 05/13/22 [History Last Taken Unknown] venlafaxine 150 mg capsule,extended release 24 hr (Effexor XR) 150 mg PO DAILY 05/13/22 [History Last Taken Unknown] Allergy/AdvReac Type Severity Reaction Status Date / Time naproxen Allergy Unknown Unknown Verified 01/24/20 09:31 STATES HAS 1 ALLERGY, NOT AdvReac NOT KNOWN Uncoded 12/07/19 13:13 KNOWN Family History Son No problems noted. Father Alcoholism Other Hyperlipidemia Thyroid disorder Surgical History History of tonsillectomy Social History Smoking Status: Former smoker Tobacco: How many years used: 3 second hand exposure: No alcohol intake: never substance use type: does not use caffeine: Yes ROS Constitutional Constitutional: Reports chills, fever(s), malaise and weakness; Denies anorexia or fatigue Cardiovascular Cardiovascular: Denies chest pain, edema, palpitations or syncope Respiratory/Chest Respiratory/Chest: Denies cough, shortness of breath at rest, shortness of breath with exertion or wheezing Gastrointestinal Gastrointestinal: Denies abdominal pain, constipation, diarrhea, nausea or vomiting Genitourinary Genitourinary: Denies dysuria Musculoskeletal Musculoskeletal: Denies back pain, extremity pain, joint pain or joint stiffness Integumentary Integumentary: Denies dry skin Neurologic Neurologic: Denies abnormal gait, abnormal speech, confusion or dizziness Psychiatric Psychiatric: Reports anxiety and cognitive impairment Endocrine Endocrinology: Denies change in body appearance Physical Exam Const alert, oriented x3 and no apparent distress Orientation / Consciousness: awake, oriented to person and confused HEENT normocephalic, head/scalp atraumatic, moist oral mucous membranes and oropharynx normal Head and Scalp: normocephalic Mouth: oral and palatal mucosa normal Eyes PERRL, EOMs intact bilaterally and conjunctivae normal Neck no lymphadenopathy, supple and no JVD General: trachea midline Resp normal respiratory effort, normal air movement, no retractions, no use of accessory muscles and clear to auscultation bilaterally Cardio regular rate, regular rhythm, S1 normal heart sound, S2 normal heart sound, no murmurs and peripheral pulses 2+ throughout GI normal to inspection, nondistended, normoactive bowel sounds, soft to palpation, non-tender and non-distended Extremity normal to inspection, full ROM, normal capillary refill and no clubbing, cyanosis or edema Skin Lesions: no lesions Rashes: no rashes Neuro oriented x3, CN's II-XII intact bilaterally, moves all extremities, no focal motor deficits and no sensory deficits noted Sensorium / Orientation: awake and alert Speech: speech normal Motor Exam: strength 5/5 throughout Psych cooperative; Negative for thought process normal Psych Narrative: flat affect Lab / Micro Data Result Diagrams: 05/16/22 06:23 05/16/22 06:23 Labs: Laboratory Results - last 24 hr 05/16/22 06:23: WBC 4.8, RBC 4.55, Hgb 12.8, Hct 39.6, MCV 87.0, MCH 28.1, MCHC 32.3, RDW Std Deviation 42.1, RDW Coeff of Rosalba 13.2, Plt Count 291, MPV 9.1, Immature Gran % (Auto) 0.200, Neut % (Auto) 37.2 L, Lymph % (Auto) 46.3 H, [place] % (Auto) 12.1 H, Eos % (Auto) 3.8, Baso % (Auto) 0.4, Absolute Neuts (auto) 1.8 L, Absolute Lymphs (auto) 2.22, Nucleated RBC % 0 05/16/22 06:23: Sodium 136, Potassium 3.9, Chloride 104, Carbon Dioxide 25.0, Anion Gap 7, BUN 15, Creatinine 0.80, Estim Creat Clear Calc 62.13, Est GFR (MDRD) Af Amer 92, Est GFR (MDRD) Non-Af 76, BUN/Creatinine Ratio 18.8, Glucose 111 H, Calcium 8.8 Micro: Microbiology 05/12/22 23:27 Blood Culture (Wb) - Anticubital Left Blood Culture - Preliminary No growth in 48 hours. 05/12/22 22:50 Blood Culture (Wb) - Anticubital Left Blood Culture - Preliminary No growth in 48 hours. 05/12/22 23:30 Urine Catheter - Catheter Urine Culture - Final Culture exhibits no growth. Rhythm Strip Rhythm Strip: Sinus Tach Rate: 115 Ectopy: None Charges/Coding Visit Charges Inpatient E&M: 95772 Init Hosp L2
[2022-05-16 16:10] VITALS: BP 109/69; PULSE 75; RESP 18; TEMP 36.3; O2SAT 97
[2022-05-16] MEDS: Acetaminophen 325 MG Tablet 650 MG PO (16:25)
--- NOTE | 2022-05-16 19:18 | NURSING ---
This RN applied SCD's on pt this evening and pt became tearful and caused a mod amt of stress and Anxiety on the pt. Pt refusing to keep them on. Texted Dr. Reece and left text message on the [facility]. Neisha JOSEPH telephone triage nurse also aware.
[2022-05-16 20:21] VITALS: BP 114/62; PULSE 94; RESP 16; TEMP 36.4; O2SAT 97
[2022-05-16] MEDS: clonazePAM 1 MG Tablet PO (20:25)
[2022-05-16] MEDS: Atorvastatin Calcium 20 MG Tablet PO (20:25)
[2022-05-17] VITALS (8 sets, daily range): BP systolic 109–116; BP diastolic 58–66; PULSE 69–88; RESP 14–18; TEMP 36.1–37.2; O2SAT 94–98
[2022-05-17] MEDS: Levothyroxine 25 MCG TABLET PO (04:41)
[2022-05-17 06:03] LABS: Absolute Lymphocyte Count 2.29 X10^3/uL (0.83-4.51); Absolute Neutrophil Count 2.3 X10^3/uL (2.0-7.7); Basophil# 0.03 X10^3/uL; Basophil% 0.6 % (0-1); Eosinophil# 0.24 X10^3/uL; Eosinophils% 4.5 % (0-5); Hematocrit 41.1 % (37-47); Hemoglobin 13.3 g/dL (12.0-15.0); Lymphocyte # 2.29 X10^3/ul (0.83-4.51); Mean Corp Hgb Conc 32.4 g/dL (32-36); Mean Corpuscular Hgb 28.8 pg (27.0-32.0); Mean Platelet Vol. 8.9 fl (6.2-12.0); Monocyte# 0.51 X10^3/uL; Monocyte% 9.6 % (0-10); NRBC Flagged by Analyzer 0 % (0-5); Neutrophil # 2.25 X10^3/uL (2.7-7.7); Neutrophil % 42.1 % (47-70); Platelet Count 295 K/mm3 (150-450); RBC Distribution Width SD 42.4 fl (35.1-43.9); Red Blood Count 4.62 M/mm3 (4.2-5.4); White Blood Count 5.3 K/mm3 (4.4-11.0)
[2022-05-17 06:29] LABS: Anion Gap 5 (5-15); BUN 16 mg/dL (7-18); BUN/Creat Ratio 19.8 RATIO (10-20); Chloride 105 mmol/L (98-107); Creatinine, Serum 0.81 mg/dL (0.55-1.02); EST Glomerular Filtration Rate 75 mL/min (>60); Est Glom Filt Rate - Afr Amer 90 mL/min (>60); Estimated Creatinine Clearance 61.36 ml/min; Glucose 112 mg/dL (74-106); Potassium 4.2 mmol/L (3.5-5.1); Sodium Level 138 mmol/L (136-145)
--- NOTE | 2022-05-17 08:51 | CASEMGMT ---
Discharge Airplane Captain Kiersten reached out to Maty at the [facility]. Insurace is still pending in medical review for pre-cert. Plan: Sue Jenkins Discharge Airplane Captain
[2022-05-17] MEDS: Memantine Hydrochloride 10 MG Tablet PO ×2 (09:26→21:34)
[2022-05-17] MEDS: QUEtiapine 25 MG Tablet PO ×2 (09:26→21:34)
[2022-05-17] MEDS: Donepezil HCl 5 MG Tablet PO (09:26)
[2022-05-17] MEDS: Venlafaxine XR 150 MG Capsule PO (09:26)
[2022-05-17] MEDS: Citalopram 10 MG Tablet PO (09:27)
--- NOTE | 2022-05-17 09:54 | CASEMGMT ---
Social Work VINAY received call from [employer] offering peer to peer consultation. VINAY took down information. Peer to peer must be completed on this day 05/17/22 by 1:30pm. Pt's must call [phone] to review case with the medical librarian. VINAY informed Dr. Gypsy Chiang of the peer to peer option and provided all necessary information regarding the call. Dr. Chiang willing to complete the peer to peer and will make the call to discuss with insurance. Vinay spoke to pt Daughter, Srini, to discuss the situation and what could potentially happen with the peer to peer call. VINAY informed that the Dr will complete the call in attempt to get insurance authorization, however Srini will need an alternative plan if pt gets denied. VINAY discussed options of private pay at a SNF and the option of HHC. Srini shared financial limits for private paying but reported pt is on waiting list for [facility] through [place] Medicaid Waiver program. The program has not been established as of yet but paperwork has been completed and a room is pending for pt at [facility] after maintenance completes repairs. VINAY discussed pt covid diagnosis with Srini and how it may effect this situation. [facility] [place] by end of this week. VINAY shared pt is medically ready to discharge from hospital and if denied a plan will need to be in place. VINAY discussed intent to call Nonya back after peer to peer determination to update. Srini voiced understanding. VINAY updated pt and RNCMMarisol, of discussion with pt daughter. RNCM to call daughter to discuss HHC options should it be needed. PLAN: Await peer to peer determination for SEDRICK Lucero
--- NOTE | 2022-05-17 10:19 | PN.HOSP_ITS ---
Subjective Subjective DOS 05/17/22 CC: DWAINE Pt is a 67y/o female who presented 05/13 with confusion and weakness. She reports continued feeling of being week, no overt SOB or cough reported, denies CP. Pt has difficulty answering questions and difficulty with word finding. Tearful, denies headache or SOB, eating fair, no n/v Objective Data Objective Data Vital Signs: Vital Signs Temp Pulse Resp BP Pulse Ox O2 Del Method 97.0 F L 69 18 114/66 95 Room Air 05/17/22 09:24 05/17/22 09:24 05/17/22 09:24 05/17/22 09:24 05/17/22 09:24 05/17/22 09:24 Oxygen Delivery Method Room Air Weight: 83.5 kg Body Mass Index (BMI) 29.7 Intake & Output: Intake and Output for Last 24 Hours 05/15/22 05/16/22 05/17/22 23:59 23:59 23:59 Intake Total 400 / 800 1420 / 1620 400 / 400 Balance 400 / 800 1420 / 1620 400 / 400 Lab / Micro Data Result Diagrams: 05/17/22 05:24 05/17/22 05:24 Labs: Laboratory Results - last 24 hr 05/17/22 05:24: WBC 5.3, RBC 4.62, Hgb 13.3, Hct 41.1, MCV 89.0, MCH 28.8, MCHC 32.4, RDW Std Deviation 42.4, RDW Coeff of Rosalba 13.0, Plt Count 295, MPV 8.9, Immature Gran % (Auto) 0.200, Neut % (Auto) 42.1 L, Lymph % (Auto) 43.0 H, [place] % (Auto) 9.6, Eos % (Auto) 4.5, Baso % (Auto) 0.6, Absolute Neuts (auto) 2.3, Absolute Lymphs (auto) 2.29, Nucleated RBC % 0 05/17/22 05:24: Sodium 138, Potassium 4.2, Chloride 105, Carbon Dioxide 28.0, Anion Gap 5, BUN 16, Creatinine 0.81, Estim Creat Clear Calc 61.36, Est GFR (MDRD) Af Amer 90, Est GFR (MDRD) Non-Af 75, BUN/Creatinine Ratio 19.8, Glucose 112 H, Calcium 9.0 Micro: Microbiology 05/12/22 23:27 Blood Culture (Wb) - Anticubital Left Blood Culture - Preliminary No growth in 48 hours. 05/12/22 22:50 Blood Culture (Wb) - Anticubital Left Blood Culture - Preliminary No growth in 48 hours. 05/12/22 23:30 Urine Catheter - Catheter Urine Culture - Final Culture exhibits no growth. 05/14/22 13:00 Stool Stool Occult Blood (LEO) - Final Occult Blood Positive 05/12/22 23:30 Nasal Secretion SARS-CoV-2 Antigen (Rapid) - Final SARS-CoV-2 (COVID 19) Rhythm Strip Rhythm Strip: Sinus Tach Rate: 115 Ectopy: None Physical Exam Const alert Constitutional Narrative: Appears upset, unable to answer orientation questions d/t being upset and word finding difficulty HEENT normocephalic and head/scalp atraumatic Eyes Eyes Narrative: EOM grossly intact, anicteric Neck supple Resp normal respiratory effort and clear to auscultation bilaterally Cardio regular rate and regular rhythm GI soft to palpation, non-tender and non-distended Extremity Extremity Narrative: No edema appreciated Neuro moves all extremities Neuro Narrative: No overt focal deficits appreciated Psych Psych Narrative: Tearful Assessment & Plan Assessment/Plan (1) COVID: (2) Fever: (3) Weakness: PLAN: Plan #COVID 19 infection * on room air * Alert but distress and difficulty with orientation question * supportive treatment as she is on room air * #Debility due to covid 19 infection * PT/OT on board. * fall precautions * Family uncomfortable with pt coming home d/t second floor and difficulty with even picking up a gallon of milk * PT rec further therapy * Will attempt to place pt in SNF for strengthening #Hypothyroidism: on synthroid #Anemia: * Hb today is 13.6 Iron studies showed iron saturation of 9.3%. * Stool for occult blood is positive. * GI rec endoscopy and colonoscopy once covid has resolved * Hgb stabilized #Hyperlipidemia: on statin #DEpression: on effexor #Dementia: * on donepezil and memantine * pt on seroquel 25mg BID 2/2 agitation DVT prophylaxis:SCDs changed to lovenox ppx Disposition: awaiting placement Charges/Coding Visit Charges OBSV E&M: 69467 Subsequent observation care L1
[2022-05-17] MEDS: Enoxaparin 40 MG/0.4 ML Syringe SC (12:18)
--- NOTE | 2022-05-17 13:54 | CASEMGMT ---
Social Work SW notified by that peer to peer did not go well and pt is denied SNF placement authorization. SW called pt daughter to inform of the denial. Discussed private pay option or possible pending medicaid option. Pt daughter is worried to bring pt home, stated feels pt is not safe to be there without previous strength and ability. SW to call [facility] to discuss option of resp[facility] care at [facility]. Pt daughter to call [facility] to look into private pay options, as she has not been able to complete this task as of yet. PLAN: SEDRICK Marquez
--- NOTE | 2022-05-17 14:54 | CASEMGMT ---
Addendum entered by Radha Meehan 05/17/22 15:58: SW received pc from pt daughter, Srini, who wanted to discuss medicaid application. Srini stated had application but not able to send back to this worker today. Srini wants to confirm with [facility] that medicaid will not interfere with pt's pending services. SW attempted to explain to Srini that applying for Medicaid now would not prevent pt from getting future medicaid services. Srini adamant to speak to [facility] first before sending application back to . SW offered education on importance of having ongoing place now for pt as staying in hospital can contribute to weakness. Srini voiced understanding, continued to discuss waiting until morning for medicaid application to be returned to this SW. Srini also informed SW appeal with insurance has been started and would hear back within 72 hours. SEDRICK Vázquez Original Note: Social Work SW spoke to [facility] contract administrator staff. This staff was not able to provide information regarding medicaid but did encourage SW to apply for LOC for pt to provide respite to pt daughter. SW informed Dr. Chiang of new plan to attempt pending medicaid placement for pt as pt daughter does not feel capable of caring for pt. SW spoke to pt daughter. Discussed applying for medicaid and pt going to SNF under pending medicaid. Daughter agreeable to completing application for medicaid. Requested SW email the archana and assured SW that archana would be completed and emailed back this day. SW emailed medicaid archana to pt daughter. Pt daughter also discussed appealing insurance decision. Stated was on the phone for appeal currently and would provide SW with information/determination of appeal if new information presented. SW called JASWINDER, Marjan Cesar, to determine if pt has pending medicaid currently, as pt has medicaid waiver pending. No answer. Left message for Marjan to return call. Plan: SNF, under insurance through appeal OR pending medicaid. SEDRICK Vázquez
--- NOTE | 2022-05-17 17:26 | PN_ITS ---
Subjective Subjective No acute events overnight. She denies any chest pain or shortness of breath. She denies any nausea but her appetite is very poor. Objective Data Objective Data Vital Signs: Vital Signs Temp Pulse Resp BP Pulse Ox O2 Del Method 98.9 F 71 18 115/65 98 Room Air 05/17/22 15:13 05/17/22 15:13 05/17/22 15:13 05/17/22 15:13 05/17/22 16:11 05/17/22 16:11 Oxygen Delivery Method Room Air Weight: 184 lb 1.376 oz Body Mass Index (BMI) 29.7 Intake & Output: Intake and Output for Last 24 Hours 05/15/22 05/16/22 05/17/22 23:59 23:59 23:59 Intake Total 400 / 800 1420 / 1620 640 / 640 Balance 400 / 800 1420 / 1620 640 / 640 Lab / Micro Data Result Diagrams: 05/17/22 05:24 05/17/22 05:24 Labs: Laboratory Results - last 24 hr 05/17/22 05:24: WBC 5.3, RBC 4.62, Hgb 13.3, Hct 41.1, MCV 89.0, MCH 28.8, MCHC 32.4, RDW Std Deviation 42.4, RDW Coeff of Rosalba 13.0, Plt Count 295, MPV 8.9, Immature Gran % (Auto) 0.200, Neut % (Auto) 42.1 L, Lymph % (Auto) 43.0 H, [place] % (Auto) 9.6, Eos % (Auto) 4.5, Baso % (Auto) 0.6, Absolute Neuts (auto) 2.3, Absolute Lymphs (auto) 2.29, Nucleated RBC % 0 05/17/22 05:24: Sodium 138, Potassium 4.2, Chloride 105, Carbon Dioxide 28.0, Anion Gap 5, BUN 16, Creatinine 0.81, Estim Creat Clear Calc 61.36, Est GFR (MDRD) Af Amer 90, Est GFR (MDRD) Non-Af 75, BUN/Creatinine Ratio 19.8, Glucose 112 H, Calcium 9.0 Micro: Microbiology 05/12/22 23:27 Blood Culture (Wb) - Anticubital Left Blood Culture - Preliminary No growth in 48 hours. 05/12/22 22:50 Blood Culture (Wb) - Anticubital Left Blood Culture - Preliminary No growth in 48 hours. 05/12/22 23:30 Urine Catheter - Catheter Urine Culture - Final Culture exhibits no growth. 05/14/22 13:00 Stool Stool Occult Blood (LEO) - Final Occult Blood Positive 05/12/22 23:30 Nasal Secretion SARS-CoV-2 Antigen (Rapid) - Final SARS-CoV-2 (COVID 19) Rhythm Strip Rhythm Strip: Sinus Tach Rate: 115 Ectopy: None Physical Exam Const alert Constitutional Narrative: Appears very nervous HEENT normocephalic and head/scalp atraumatic Eyes Eyes Narrative: EOM grossly intact, anicteric Neck supple Resp normal respiratory effort and clear to auscultation bilaterally Cardio regular rate and regular rhythm GI soft to palpation, non-tender and non-distended Extremity Extremity Narrative: No edema appreciated Neuro moves all extremities Neuro Narrative: No overt focal deficits appreciated Psych Psych Narrative: Tearful Assessment & Plan Assessment/Plan (1) Anemia: PLAN: Patient's hemoglobin is continue to go up. I do not see any signs of GI blood loss at this time. No contraindication from time regarding anticoagulation. I will stay in the periphery and follow patient while she is in the hospital. Charges/Coding Visit Charges Inpatient E&M: 21603 Subs Hosp L2
[2022-05-17] MEDS: clonazePAM 1 MG Tablet PO (21:34)
[2022-05-17] MEDS: Atorvastatin Calcium 20 MG Tablet PO (21:34)
[2022-05-18 04:51] LABS: Absolute Lymphocyte Count 2.53 X10^3/uL (0.83-4.51); Absolute Neutrophil Count 3.6 X10^3/uL (2.0-7.7); Basophil# 0.03 X10^3/uL; Basophil% 0.4 % (0-1); Eosinophil# 0.25 X10^3/uL; Eosinophils% 3.6 % (0-5); Hematocrit 41.8 % (37-47); Hemoglobin 13.3 g/dL (12.0-15.0); Lymphocyte # 2.53 X10^3/ul (0.83-4.51); Lymphocyte % 36.9 % (19-41); Mean Corp Hgb Conc 31.8 g/dL (32-36); Mean Corpuscular Hgb 28.6 pg (27.0-32.0); Mean Corpuscular Volume 89.9 fL (81-99); Mean Platelet Vol. 9.1 fl (6.2-12.0); Monocyte# 0.46 X10^3/uL; Monocyte% 6.7 % (0-10); NRBC Flagged by Analyzer 0 % (0-5); Neutrophil # 3.57 X10^3/uL (2.7-7.7); Neutrophil % 52.1 % (47-70); Platelet Count 328 K/mm3 (150-450); RBC Distribution Width SD 42.8 fl (35.1-43.9); Red Blood Count 4.65 M/mm3 (4.2-5.4); White Blood Count 6.9 K/mm3 (4.4-11.0)
[2022-05-18 05:16] LABS: ALB/GLOB Ratio 0.6 RATIO (0.9-2.4); AST(SGOT) 30 U/L (15-37); Alanine Aminotransfer ALT/SGPT 29 U/L (13-56); Albumin, Serum 3.2 g/dL (3.2-5.0); Alkaline Phosphatase 85 U/L (45-117); Anion Gap 8 (5-15); BUN 21 mg/dL (7-18); BUN/Creat Ratio 24.1 RATIO (10-20); Chloride 104 mmol/L (98-107); Creatinine, Serum 0.87 mg/dL (0.55-1.02); EST Glomerular Filtration Rate 68 mL/min (>60); Est Glom Filt Rate - Afr Amer 83 mL/min (>60); Estimated Creatinine Clearance 57.13 ml/min; Glucose 147 mg/dL (74-106); Potassium 3.9 mmol/L (3.5-5.1); Protein, Total 8.2 g/dL (6.4-8.2); Sodium Level 138 mmol/L (136-145)
[2022-05-18] MEDS: Levothyroxine 25 MCG TABLET PO (05:39)
[2022-05-18 05:42] VITALS: BP 111/64; PULSE 73; RESP 18; TEMP 36.6; O2SAT 93
--- NOTE | 2022-05-18 06:34 | PN.HOSP_ITS ---
Subjective Subjective DOS 05/18/22 CC: Generalized weakness Pt is a 67y/o female who presented 05/13 with confusion and weakness. She reports her breathing is fair, denies cough. Still feels generally weak and did not sleep well last night. Denies problems with bowel or bladder. Denies CP, no other complaints this AM. Objective Data Objective Data Vital Signs: Vital Signs Temp Pulse Resp BP Pulse Ox O2 Del Method 98 F 73 18 111/64 93 Room Air 05/18/22 05:42 05/18/22 05:42 05/18/22 05:42 05/18/22 05:42 05/18/22 05:42 05/18/22 05:42 Oxygen Delivery Method Room Air Weight: 83.5 kg Body Mass Index (BMI) 29.7 Intake & Output: Intake and Output for Last 24 Hours 05/16/22 05/17/22 05/18/22 23:59 23:59 23:59 Intake Total 1420 / 1620 640 / 640 Balance 1420 / 1620 640 / 640 Lab / Micro Data Result Diagrams: 05/18/22 03:59 05/18/22 03:59 Labs: Laboratory Results - last 24 hr 05/18/22 03:59: WBC 6.9, RBC 4.65, Hgb 13.3, Hct 41.8, MCV 89.9, MCH 28.6, MCHC 31.8 L, RDW Std Deviation 42.8, RDW Coeff of Rosalba 13.0, Plt Count 328, MPV 9.1, Immature Gran % (Auto) 0.300, Neut % (Auto) 52.1, Lymph % (Auto) 36.9, [place] % (Auto) 6.7, Eos % (Auto) 3.6, Baso % (Auto) 0.4, Absolute Neuts (auto) 3.6, Absolute Lymphs (auto) 2.53, Nucleated RBC % 0 05/18/22 03:59: Sodium 138, Potassium 3.9, Chloride 104, Carbon Dioxide 26.0, Anion Gap 8, BUN 21 H, Creatinine 0.87, Estim Creat Clear Calc 57.13, Est GFR (MDRD) Af Amer 83, Est GFR (MDRD) Non-Af 68, BUN/Creatinine Ratio 24.1 H, Glucose 147 H, Calcium 9.0, Total Bilirubin 0.30, AST 30, ALT 29, Alkaline Phosphatase 85, Total Protein 8.2, Albumin 3.2, Globulin 5.0 H, Albumin/Globulin Ratio 0.6 L Micro: Microbiology 05/12/22 23:27 Blood Culture (Wb) - Anticubital Left Blood Culture - Preliminary No growth in 48 hours. 05/12/22 22:50 Blood Culture (Wb) - Anticubital Left Blood Culture - Preliminary No growth in 48 hours. 05/12/22 23:30 Urine Catheter - Catheter Urine Culture - Final Culture exhibits no growth. 05/14/22 13:00 Stool Stool Occult Blood (LEO) - Final Occult Blood Positive 05/12/22 23:30 Nasal Secretion SARS-CoV-2 Antigen (Rapid) - Final SARS-CoV-2 (COVID 19) Rhythm Strip Rhythm Strip: Sinus Tach Rate: 115 Ectopy: None Physical Exam Const alert and no apparent distress Constitutional Narrative: remains somewhat confused General Appearance: anxious Orientation / Consciousness: awake, oriented to person and confused HEENT normocephalic, head/scalp atraumatic and moist oral mucous membranes Eyes PERRL, EOMs intact bilaterally, conjunctivae normal and no scleral icterus Eyes Narrative: EOM grossly intact, anicteric Neck supple General: trachea midline Resp normal respiratory effort, normal air movement, no retractions, no use of accessory muscles and clear to auscultation bilaterally Cardio regular rate and regular rhythm GI soft to palpation, non-tender and non-distended Extremity full ROM Extremity Narrative: No edema appreciated Neuro moves all extremities Neuro Narrative: No overt focal deficits appreciated Sensorium / Orientation: awake and alert Speech: speech normal Psych Psych Narrative: Cooperative Assessment & Plan Assessment/Plan (1) COVID: (2) Fever: (3) Weakness: PLAN: Plan #COVID 19 infection * on room air * Alert but remains confused * supportive treatment as she is on room air #Debility due to covid 19 infection * PT/OT on board. * fall precautions * Family uncomfortable with pt coming home d/t second floor and weakness/physican limitations * PT rec further therapy * family appealing insurance for SNF placement, awaiting determination #Hypothyroidism: on synthroid #Anemia: * Hb today is 13.6 Iron studies showed iron saturation of 9.3%. * Stool for occult blood is positive. * GI rec endoscopy and colonoscopy once covid has resolved. No acute intervention * Hgb stabilized, 13.3 today #Hyperlipidemia: on statin #DEpression: on effexor #Dementia: * on donepezil and memantine * pt on seroquel 25mg BID 2/2 agitation DVT prophylaxis:SCDs changed to lovenox ppx Disposition: awaiting placement Charges/Coding Visit Charges Inpatient E&M: 53645 Subs Hosp L1
--- NOTE | 2022-05-18 09:24 | CASEMGMT ---
Social Work SW reached out to Marjan Cesar at [facility]. Pt does have pending medicaid. The pending number is [phone]. SW to start LOC care today. SEDRICK Vázquez
[2022-05-18 09:39] VITALS: BP 113/79; PULSE 91; RESP 18; TEMP 36.7; O2SAT 93
[2022-05-18] MEDS: Enoxaparin 40 MG/0.4 ML Syringe SC (09:42)
[2022-05-18] MEDS: Venlafaxine XR 150 MG Capsule PO (09:42)
[2022-05-18] MEDS: Donepezil HCl 5 MG Tablet PO (09:42)
[2022-05-18] MEDS: QUEtiapine 25 MG Tablet PO ×2 (09:42→11:51)
[2022-05-18] MEDS: Citalopram 10 MG Tablet PO (09:42)
[2022-05-18] MEDS: Memantine Hydrochloride 10 MG Tablet PO (09:42)
--- NOTE | 2022-05-18 09:58 | CASEMGMT ---
Addendum entered by Radha Meehan 05/18/22 10:57: Received call back from [facility]. They are not currently accepting pending medicaid. Original Note: Social Work SW called [facility] (previous accepting facility) to determine if [facility] would be willing to accept pt under pending medicaid. Left Message with director general Maty. Requested a call back. SEDRICK Vázquez
--- NOTE | 2022-05-18 10:59 | CASEMGMT ---
Social Work SW in to meet with pt. Pt visibly upset, tearful and attempting to leave room several times. Sw attempted to explain situation to pt regarding daughter wanting pt to go to SNF for residential to get rehab. Pt confused, stated upset with daughter for leaving pt here alone and not visiting. Pt upset daughter not willing to allow pt to come home. SW attempted to explain insurance denial and assist pt in calming. Pt continued to escalate, stated would pack suitcase and leave to go home, directly after SW informed pt that pt daughter wants pt to go to SNF. SW received VM from pt daughter. Daughter left message with pending medicaid number. Reported would be in a work meeting until 12pm this day. SW to call daughter following this time. SEDRICK Vázquez
--- NOTE | 2022-05-18 12:35 | CASEMGMT ---
Addendum entered by Radha Meehan 05/18/22 14:21: VINAY called pt daughter to update on pending medicaid and possible placement. Pt daughter stated would not care which facility pt goes to as long as pt goes somewhere and does not come home, she's not safe. SW reported [facility] and [facility] both open to possibility of pt coming under pending medicaid and would review referrals. Pt daughter voiced understanding and ok with this plan. Daughter stated had not heard back from insurance appeal yet. SW informed daughter pt has been combative and agitated. Discussed visit from family possibly improving pt mood. Daughter stated I'm not up for that today. I can't handle it. SW suggested phone call. Daughter stated tried to call but pt did not answer phone. Daughter to bring in pt cell phone and coloring stuff to help pt with staying occupied. SEDRICK Vázquez Addendum entered by Radha Meehan 05/18/22 13:26: SW heard back from Judi at [facility]. [facility] open to pending medicaid placement for patient. VINAY sent referral [facility] in [place] [facility] [employer]. PLAN: SNF under pending Medicaid: [facility], pending acceptance and LOC SEDRICK Vázquez Original Note: Social Work SW reached out to [facility] in [place], as they are open to Covid positive pt's in the past to determine if they would accept pending Medicaid. Left message for Judi. Also emailed Judi with this information, requested call or email back. VINAY called Ashvin at [facility] as pt is on waiting list for AL there. Ashvin stated would be open to taking pt if 10 days out from first Covid positive result. Date would be 05/21/22. Family would also have to be willing to fill out medicaid pending questionnaire. VINAY will ask Kiersten Oh to send [facility] via [employer] (acquired [employer]).
[2022-05-18 13:25] VITALS: O2SAT 96
--- NOTE | 2022-05-18 13:55 | NURSING ---
vitals declined d/t pt current level of agitation and uncooperative. resps even and unlabored.
[2022-05-18] MEDS: RisperiDONE 0.25 MG Tablet PO ×2 (15:17→21:02)
[2022-05-18 15:21] VITALS: BP 132/72; PULSE 87; RESP 18; TEMP 36.3; O2SAT 98
[2022-05-18] MEDS: MELATONIN 10 MG TABLET PO (21:02)
[2022-05-18] MEDS: Atorvastatin Calcium 20 MG Tablet PO (21:02)
[2022-05-18] MEDS: clonazePAM 1 MG Tablet PO (21:02)
[2022-05-18 21:08] VITALS: BP 115/79; PULSE 106; RESP 18; TEMP 36.3; O2SAT 97
[2022-05-19 06:06] VITALS: BP 114/67; PULSE 73; RESP 16; TEMP 36.4; O2SAT 100
[2022-05-19] MEDS: Levothyroxine 25 MCG TABLET PO (06:08)
--- NOTE | 2022-05-19 08:18 | PN.HOSP_ITS ---
Subjective Subjective DOS 05/19/22 CC- Where is Nonya? Ms. Wagner remains upset and confused and wants to know where her daughter is. She denies changes in breathing, appetite fair. No Chest pain. No other complaints this AM Objective Data Objective Data Vital Signs: Vital Signs Temp Pulse Resp BP Pulse Ox O2 Del Method 97.6 F L 73 16 114/67 100 Room Air 05/19/22 06:06 05/19/22 06:06 05/19/22 06:06 05/19/22 06:06 05/19/22 06:06 05/19/22 06:06 Oxygen Delivery Method Room Air Weight: 83.5 kg Body Mass Index (BMI) 29.7 Intake & Output: Intake and Output for Last 24 Hours 05/17/22 05/18/22 05/19/22 23:59 23:59 23:59 Intake Total 640 / 640 Balance 640 / 640 Lab / Micro Data Result Diagrams: 05/18/22 03:59 05/18/22 03:59 Micro: Microbiology 05/12/22 22:50 Blood Culture (Wb) - Anticubital Left Blood Culture - Final No growth in 5 days. 05/12/22 23:27 Blood Culture (Wb) - Anticubital Left Blood Culture - Final No growth in 5 days. 05/12/22 23:30 Urine Catheter - Catheter Urine Culture - Final Culture exhibits no growth. 05/14/22 13:00 Stool Stool Occult Blood (LEO) - Final Occult Blood Positive 05/12/22 23:30 Nasal Secretion SARS-CoV-2 Antigen (Rapid) - Final SARS-CoV-2 (COVID 19) Rhythm Strip Rhythm Strip: Sinus Tach Rate: 115 Ectopy: None Physical Exam Const alert Constitutional Narrative: remains somewhat confused HEENT normocephalic and head/scalp atraumatic Eyes Eyes Narrative: EOM grossly intact, anicteric Neck supple Resp normal respiratory effort and no use of accessory muscles Cardio regular rate and regular rhythm GI non-distended Extremity Extremity Narrative: No edema appreciated Neuro moves all extremities Neuro Narrative: No overt focal deficits appreciated Psych Mood & Affect: tearful Assessment & Plan Assessment/Plan (1) COVID: (2) Fever: (3) Weakness: PLAN: Plan #COVID 19 infection * on room air * Alert but remains confused * supportive treatment as she is on room air #Debility due to covid 19 infection * PT/OT on board. * fall precautions * Family uncomfortable with pt coming home d/t second floor and weakness/physician limitations * PT rec further therapy * family appealing insurance for SNF placement, awaiting determination #Hypothyroidism: on synthroid #Anemia: * Hb 13.6 Iron studies showed iron saturation of 9.3%. * Stool for occult blood is positive. * GI rec endoscopy and colonoscopy once covid has resolved. No acute interventio n * Hgb stabilized, 13.3 today #Hyperlipidemia: on statin #DEpression: on effexor #Dementia: * on donepezil and memantine- memantine held 2/2 agitation * pt remained agitated on seroquel, changed to risperdal schedule +prn DVT prophylaxis:SCDs changed to lovenox ppx Disposition: awaiting placement Charges/Coding Visit Charges Inpatient E&M: 27333 Subs Hosp L1
[2022-05-19 10:26] VITALS: BP 137/77; PULSE 96; RESP 18; TEMP 37.2; O2SAT 97
[2022-05-19] MEDS: RisperiDONE 0.25 MG Tablet PO (10:30)
[2022-05-19] MEDS: Venlafaxine XR 150 MG Capsule PO (10:30)
[2022-05-19] MEDS: Enoxaparin 40 MG/0.4 ML Syringe SC (10:30)
[2022-05-19] MEDS: Donepezil HCl 5 MG Tablet PO (10:30)
[2022-05-19] MEDS: Citalopram 10 MG Tablet PO (10:30)
--- NOTE | 2022-05-19 11:19 | CASEMGMT ---
Social Work SW called Judi at [facility] to discuss determination of acceptance under pending medicaid. Judi did not answer. Left message requesting Judi respond to email sent yesterday or to call back. Provided contact information. SEDRICK Vázquez
--- NOTE | 2022-05-19 13:09 | CASEMGMT ---
Addendum entered by Radha Meehan 05/19/22 13:57: VINAY was cc'd on email from Judi at [facility] to Magaly at [facility]. Email stated clinically pt looks good to accept. Facility just needs payor info and will reach out to the [facility] before making determination. Sw to continue waiting to hear back from [facility]. SEDRICK Vázquez Original Note: Social Work SW called [facility] for a third time and finally got through to someone. Magaly informed SW Judi is working offsite today. Magaly reassured VINAY that Judi would be contacted to review pt case and make determination genevieve. VINAY provided contact information. Magaly to contact Judi and relay message. PLAN: await [facility] determination of acceptance. SEDRICK Vázquez
--- NOTE | 2022-05-19 15:08 | CASEMGMT ---
Social Work SW received response from [facility] in [facility]. Rick from requesting an email address to send medicaid pending questionnaire that family will need to fill out. SW provided pt daughters email and SW email as well. SW called pt daughter to inform her that email will be coming from [facility] and it will need completed and returned as quickly as possibly. Pt daughter voiced understanding. SW informed still waiting on acceptance from [facility] as well. Dgt understanding. PLAN: [facility] vs. [facility] under pending medicaid - Neither SNF has accepted as of yet.
--- NOTE | 2022-05-19 16:50 | PCM.PROGNOTE ---
Subjective Subjective Patient is resting. Patient is tolerating a diet. She is still experiencing some altered level of awareness regarding her hospital stay. She does not seem to be suffering any side effects from active COVID infection. Objective Data Objective Data Vital Signs: Vital Signs Temp Pulse Resp BP Pulse Ox O2 Del Method 98.9 F 96 18 137/77 H 97 Room Air 05/19/22 10:26 05/19/22 10:26 05/19/22 10:26 05/19/22 10:26 05/19/22 10:26 05/19/22 10:38 Oxygen Delivery Method Room Air Weight: 184 lb 1.376 oz Body Mass Index (BMI) 29.7 Intake & Output: Intake and Output for Last 24 Hours 05/17/22 05/18/22 05/19/22 23:59 23:59 23:59 Intake Total 640 / 640 Balance 640 / 640 Lab / Micro Data Result Diagrams: 05/18/22 03:59 05/18/22 03:59 Micro: Microbiology 05/12/22 22:50 Blood Culture (Wb) - Anticubital Left Blood Culture - Final No growth in 5 days. 05/12/22 23:27 Blood Culture (Wb) - Anticubital Left Blood Culture - Final No growth in 5 days. 05/12/22 23:30 Urine Catheter - Catheter Urine Culture - Final Culture exhibits no growth. 05/14/22 13:00 Stool Stool Occult Blood (LEO) - Final Occult Blood Positive 05/12/22 23:30 Nasal Secretion SARS-CoV-2 Antigen (Rapid) - Final SARS-CoV-2 (COVID 19) Rhythm Strip Rhythm Strip: Sinus Tach Rate: 115 Ectopy: None Physical Exam Const alert Constitutional Narrative: remains somewhat confused General Appearance: anxious Orientation / Consciousness: awake, oriented to person and confused HEENT normocephalic and head/scalp atraumatic Eyes PERRL, EOMs intact bilaterally, conjunctivae normal and no scleral icterus Eyes Narrative: EOM grossly intact, anicteric Neck supple General: trachea midline Resp normal respiratory effort and no use of accessory muscles Cardio regular rate and regular rhythm GI non-distended Extremity full ROM Extremity Narrative: No edema appreciated Neuro moves all extremities Neuro Narrative: No overt focal deficits appreciated Sensorium / Orientation: awake and alert Speech: speech normal Psych Psych Narrative: Cooperative Mood & Affect: tearful Assessment & Plan Assessment/Plan (1) Anemia: PLAN: Patient's hemoglobin is seems to have stabilized. I do not see any signs of GI blood loss at this time.? No contraindication from time regarding anticoagulation.? She can have an EGD and colonoscopy once she is medically cleared. Charges/Coding Visit Charges Inpatient E&M: 71069 [facility] Hosp L1
[2022-05-19 16:56] VITALS: BP 122/60; PULSE 94; RESP 18; TEMP 36.3; O2SAT 97
--- NOTE | 2022-05-19 18:11 | NURSING ---
Pt has been increasing in agitation so I called the daughter and informed her that she has been asking for her today and will not stay in the room now. She is very emotional and will need someone to sit with her for awhile. I asked the daughter and she said she is aware that she is the one she is asking for but she will just make matters worse. So she was going to call her aunt and see if she could just come up here and sit with her for awhile until she calms down.
[2022-05-19 19:43] VITALS: BP 119/76; PULSE 100; RESP 18; TEMP 36.8; O2SAT 95
[2022-05-19] MEDS: clonazePAM 1 MG Tablet PO (19:49)
[2022-05-19] MEDS: Atorvastatin Calcium 20 MG Tablet PO (19:49)
[2022-05-19] MEDS: RisperiDONE 0.5 MG Tablet PO (19:49)
[2022-05-19] MEDS: MELATONIN 10 MG TABLET PO (19:50)
[2022-05-20 06:50] VITALS: BP 94/58; PULSE 84; RESP 18; TEMP 36.2; O2SAT 95
[2022-05-20] MEDS: Levothyroxine 25 MCG TABLET PO (06:51)
--- NOTE | 2022-05-20 07:31 | PN.HOSP_ITS ---
Subjective Subjective DOS 05/20/22 CC: there is only one seat Over night pt was agitated and required prn risperdal and her klononpin early. This am denies any complaints, no problems breathing, eating well Objective Data Objective Data Vital Signs: Vital Signs Temp Pulse Resp BP Pulse Ox O2 Del Method 97.1 F L 84 18 94/58 L 95 Room Air 05/20/22 06:50 05/20/22 06:50 05/20/22 06:50 05/20/22 06:50 05/20/22 06:50 05/20/22 06:50 Oxygen Delivery Method Room Air Weight: 83.5 kg Body Mass Index (BMI) 29.7 Lab / Micro Data Result Diagrams: 05/18/22 03:59 05/18/22 03:59 Micro: Microbiology 05/12/22 22:50 Blood Culture (Wb) - Anticubital Left Blood Culture - Final No growth in 5 days. 05/12/22 23:27 Blood Culture (Wb) - Anticubital Left Blood Culture - Final No growth in 5 days. 05/12/22 23:30 Urine Catheter - Catheter Urine Culture - Final Culture exhibits no growth. 05/14/22 13:00 Stool Stool Occult Blood (LEO) - Final Occult Blood Positive 05/12/22 23:30 Nasal Secretion SARS-CoV-2 Antigen (Rapid) - Final SARS-CoV-2 (COVID 19) Rhythm Strip Rhythm Strip: Sinus Tach Rate: 115 Ectopy: None Physical Exam Const alert Constitutional Narrative: remains somewhat confused Orientation / Consciousness: awake HEENT Head and Scalp: normocephalic Eyes Eyes Narrative: EOM grossly intact, anicteric Neck supple Resp normal respiratory effort and no use of accessory muscles Cardio regular rate and regular rhythm GI non-distended Extremity Extremity Narrative: No edema appreciated Neuro moves all extremities Neuro Narrative: No overt focal deficits appreciated Sensorium / Orientation: awake and alert Speech: speech normal Psych cooperative Psych Narrative: Cooperative and pleasant this AM Assessment & Plan Assessment/Plan (1) COVID: (2) Fever: (3) Weakness: PLAN: Plan #COVID 19 infection * on room air * Alert but remains confused * supportive treatment * Doing wlel today #Debility due to covid 19 infection * PT/OT on board. * fall precautions * Family uncomfortable with pt coming home d/t second floor and weakness/physician limitations * PT rec further therapy * family appealing insurance for SNF placement, awaiting determination- altern ative options being explored #dementia with behavioral disturbance * Pt intermittently agitated * On donepazile * Memantine held 2/2 agitation * Pt remained agitated on seroquel, changed to risperdal scheduled and prn * has klonopin qhs which was reportedly a home medication * Required PRN yesterday but pleasant and doing well this AM. #Hypothyroidism: on Synthroid #Anemia: * Hb 13.6 Iron studies showed iron saturation of 9.3%. * Stool for occult blood is positive. * GI rec endoscopy and colonoscopy once covid has resolved. No acute intervention * Hgb stabilized, 13.3, no evidence of bleeding, will avoid daily labs as pt stable and awaiting placement * GI outpt f/u #Hyperlipidemia: on statin #DEpression: on effexor DVT prophylaxis:SCDs changed to lovenox ppx Disposition: awaiting placement Charges/Coding Visit Charges Inpatient E&M: 08973 Subs Hosp L1
--- NOTE | 2022-05-20 08:11 | CASEMGMT ---
Social Work SW sent email to pt daughter inquiring if email regarding Pending Medicaid Questionnaire had been received. SW will wait for response. If SW does not hear back from pt daughter this morning will call. Dgt informed email would be best way to communicate this morning due to work schedule. SEDRICK Vázquez
--- NOTE | 2022-05-20 08:49 | CASEMGMT ---
Addendum entered by Radha Meehan 05/20/22 09:58: Judi at [facility] reached out via email. Judi shared manager poker at [facility], Magaly, would need to call and discuss finances with pt family before determination can be made. VINAY requested an update when this happens and what the determination will be. Original Note: Social Work SW emailed Judi at [facility] to inquire of news of acceptance under pending medicaid. Attempted phone call, no answer. Unable to leave voicemail. If VINAY does not hear back from Judi via email shortly, SW attempt reaching Magaly or other staff at [facility] to gather information. SEDRICK Vázquez
[2022-05-20 09:51] VITALS: BP 137/65; PULSE 95; RESP 16; TEMP 36.2; O2SAT 94
[2022-05-20] MEDS: Donepezil HCl 5 MG Tablet PO (10:03)
[2022-05-20] MEDS: Citalopram 10 MG Tablet PO (10:03)
[2022-05-20] MEDS: Venlafaxine XR 150 MG Capsule PO (10:03)
[2022-05-20] MEDS: Enoxaparin 40 MG/0.4 ML Syringe SC (10:03)
[2022-05-20] MEDS: RisperiDONE 0.25 MG Tablet PO ×3 (10:09→21:37)
--- NOTE | 2022-05-20 13:29 | CASEMGMT ---
Addendum entered by Radha Meehan 05/20/22 14:47: SW received pc from pt daughter, Srini, who stated just heard back from [facility] regarding appeal for snf placement. Appeal was awarded and Srini has authorization number. Srini was entering [facility] during pc to discuss placement for pt there. Srini to call this SW back with information from [facility] after discussion there. SEDRICK Vázquez Original Note: Social Work Pt has left room twice today with belongings in hand. Pt stated I'm going home to [place]. SW explained to pt that pt not ready to discharge and that she cannot leave the hospital. Pt frustrated but allowed SW and CIRCLE BEVELER Meghana to return to room. SW called pt daughter to inform of increased agitation and frustration of pt. Daughter stated I don't know what I can do. I won't be home for the next few days and even if I do take her home there won't be anyone to watch her. Daughter confirmed has appointment at [facility] this afternoon to tour AL apartment and will call SW after this meeting to share information. SW also informed [facility] needs to talk to daughter regarding placement at their facility. Daughter stated she cannot call them and she would just have to wait for them to call her. PLAN[facility] under [facility]- awaiting acceptance SEDRICK Vázquez
[2022-05-20 15:51] VITALS: BP 125/84; PULSE 60; RESP 16; TEMP 36.4; O2SAT 96
[2022-05-20 21:29] VITALS: BP 118/61; PULSE 96; RESP 18; TEMP 36.4; O2SAT 96
[2022-05-20] MEDS: clonazePAM 1 MG Tablet PO (21:37)
[2022-05-20] MEDS: MELATONIN 10 MG TABLET PO (21:37)
[2022-05-20] MEDS: Atorvastatin Calcium 20 MG Tablet PO (21:37)
[2022-05-21 05:09] VITALS: BP 114/68; PULSE 86; RESP 18; TEMP 36.4; O2SAT 97
[2022-05-21] MEDS: Levothyroxine 25 MCG TABLET PO (05:13)
[2022-05-21 09:15] VITALS: BP 113/56; PULSE 74; RESP 18; TEMP 36.6; O2SAT 94
[2022-05-21] MEDS: RisperiDONE 0.25 MG Tablet PO ×2 (09:18→21:59)
[2022-05-21] MEDS: Enoxaparin 40 MG/0.4 ML Syringe SC (09:18)
[2022-05-21] MEDS: Venlafaxine XR 150 MG Capsule PO (09:18)
[2022-05-21] MEDS: Citalopram 10 MG Tablet PO (09:18)
[2022-05-21] MEDS: Donepezil HCl 5 MG Tablet PO (09:18)
--- NOTE | 2022-05-21 10:34 | PN.HOSP_ITS ---
Subjective Subjective Doing well, no issues overnight. She is maintaining her oxygen saturations on room air Objective Data Objective Data Vital Signs: Vital Signs Temp Pulse Resp BP Pulse Ox O2 Del Method 97.9 F 74 18 113/56 L 94 Room Air 05/21/22 09:15 05/21/22 09:15 05/21/22 09:15 05/21/22 09:15 05/21/22 09:15 05/21/22 09:15 Oxygen Delivery Method Room Air Weight: 184 lb 1.376 oz Body Mass Index (BMI) 29.7 Intake & Output: Intake and Output for Last 24 Hours 05/20/22 05/21/22 05/22/22 03:59 03:59 03:59 Intake Total 600 / 600 Balance 600 / 600 Lab / Micro Data Result Diagrams: 05/18/22 03:59 05/18/22 03:59 Micro: Microbiology 05/12/22 22:50 Blood Culture (Wb) - Anticubital Left Blood Culture - Final No growth in 5 days. 05/12/22 23:27 Blood Culture (Wb) - Anticubital Left Blood Culture - Final No growth in 5 days. 05/12/22 23:30 Urine Catheter - Catheter Urine Culture - Final Culture exhibits no growth. 05/14/22 13:00 Stool Stool Occult Blood (LEO) - Final Occult Blood Positive 05/12/22 23:30 Nasal Secretion SARS-CoV-2 Antigen (Rapid) - Final SARS-CoV-2 (COVID 19) Rhythm Strip Rhythm Strip: Sinus Tach Rate: 115 Ectopy: None Physical Exam Narrative General: Alert, Oriented x3, Cooperative, No apparent distress HEENT: Atraumatic, PERRLA, EOMI, Normocephalic Oral: Moist Mucosa Neck: Supple, No JVD Lungs: Diminished, Normal air movement, No rhonchi, No wheeze, No rales Cardiovascular: Regular rate, Regular Rhythm, Normal S1, Normal S2, No murmurs Abdomen: Soft, Non Tender, Non-Distended, No Hepato-splenomegaly Extremities: No edema, Capillary Refill Less than 3 Seconds Skin: No rashes, No breakdown Musculoskeletal: No Tenderness to Palpation of Joints or Extremities Neurological: Cranial nerves II-XII grossly intact, Motor Exam 5/5 strength throughout, Sensory exam intact to light touch and pain Psych/Mental Status: Normal Affect, Appropriate Assessment & Plan Assessment/Plan (1) COVID: (2) Fever: (3) Weakness: PLAN: Plan 1. COVID 19 infection?resolved/debility from COVID ? To get a precautions ? Planning for discharge to long term ? Continue with PT/OT 2. Dementia with behavioral disturbance/depression ? She has been intermittently agitated during her 8-day stay ? Continue with her home medications ? She was getting agitated on Seroquel so she was transitioned to Risperdal ? Also on Klonopin, continue with Effexor 3. Hypothyroidism ? Stable ? Continue with Synthroid 4. Transient anemia ? This is likely due to minor GI bleed ? Stool occult was positive however here hemoglobin went from 9.2 to 13.3 without any blood transfusions or interventions ? She can follow-up with gastroenterology as an outpatient DVT: Albino Charges/Coding Visit Charges OBSV E&M: 98798 Subsequent observation care L2
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
[2022-05-21 15:00] VITALS: O2SAT 95
[2022-05-21 15:15] VITALS: BP 109/64; PULSE 95; RESP 18; TEMP 36.6; O2SAT 95
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
[2022-05-21 20:18] VITALS: BP 111/51; PULSE 93; RESP 16; TEMP 36.6; O2SAT 96
[2022-05-21 20:22] VITALS: O2SAT 96
[2022-05-21] MEDS: MELATONIN 10 MG TABLET PO (21:59)
[2022-05-21] MEDS: clonazePAM 1 MG Tablet PO (21:59)
[2022-05-21] MEDS: Atorvastatin Calcium 20 MG Tablet PO (21:59)
[2022-05-22 02:00] VITALS: O2SAT 96
[2022-05-22 02:18] VITALS: BP 105/59; PULSE 74; RESP 16; TEMP 36.6; O2SAT 96
[2022-05-22] MEDS: Levothyroxine 25 MCG TABLET PO (06:14)
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
[2022-05-22 11:10] VITALS: BP 114/64; PULSE 79; RESP 18; TEMP 36.4; O2SAT 96
[2022-05-22] MEDS: Donepezil HCl 5 MG Tablet PO (11:15)
[2022-05-22] MEDS: Citalopram 10 MG Tablet PO (11:15)
[2022-05-22] MEDS: Enoxaparin 40 MG/0.4 ML Syringe SC (11:15)
[2022-05-22] MEDS: RisperiDONE 0.25 MG Tablet PO ×2 (11:15→21:05)
[2022-05-22] MEDS: Venlafaxine XR 150 MG Capsule PO (12:44)
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
[2022-05-22 17:59] VITALS: BP 132/69; PULSE 93; RESP 18; TEMP 36.5; O2SAT 98
[2022-05-22 21:00] VITALS: BP 118/65; PULSE 108; RESP 16; TEMP 36.8; O2SAT 95
[2022-05-22] MEDS: clonazePAM 1 MG Tablet PO (21:04)
[2022-05-22] MEDS: Atorvastatin Calcium 20 MG Tablet PO (21:04)
[2022-05-22] MEDS: MELATONIN 10 MG TABLET PO (21:04)
[2022-05-23 03:00] VITALS: BP 95/44; PULSE 77; RESP 14; TEMP 36.6; O2SAT 94
[2022-05-23] MEDS: Levothyroxine 25 MCG TABLET PO (05:49)
[2022-05-23 06:33] LABS: Absolute Lymphocyte Count 2.53 X10^3/uL (0.83-4.51); Absolute Neutrophil Count 3.4 X10^3/uL (2.0-7.7); Basophil# 0.04 X10^3/uL; Basophil% 0.6 % (0-1); Eosinophil# 0.23 X10^3/uL; Eosinophils% 3.4 % (0-5); Hematocrit 36.3 % (37-47); Hemoglobin 11.7 g/dL (12.0-15.0); Lymphocyte # 2.53 X10^3/ul (0.83-4.51); Mean Corp Hgb Conc 32.2 g/dL (32-36); Mean Corpuscular Hgb 28.6 pg (27.0-32.0); Mean Corpuscular Volume 88.8 fL (81-99); Mean Platelet Vol. 9.2 fl (6.2-12.0); Monocyte% 8.8 % (0-10); NRBC Flagged by Analyzer 0 % (0-5); Neutrophil % 49.8 % (47-70); Platelet Count 300 K/mm3 (150-450); RBC Distribution Width SD 42.4 fl (35.1-43.9); Red Blood Count 4.09 M/mm3 (4.2-5.4); White Blood Count 6.8 K/mm3 (4.4-11.0)
[2022-05-23 06:58] LABS: Anion Gap 6 (5-15); BUN 13 mg/dL (7-18); BUN/Creat Ratio 16.4 RATIO (10-20); Calcium,Total 9.1 mg/dL (8.5-10.1); Chloride 107 mmol/L (98-107); Creatinine, Serum 0.79 mg/dL (0.55-1.02); EST Glomerular Filtration Rate 77 mL/min (>60); Est Glom Filt Rate - Afr Amer 93 mL/min (>60); Glucose 105 mg/dL (74-106); Sodium Level 139 mmol/L (136-145)
[2022-05-23] MEDS: Venlafaxine XR 150 MG Capsule PO (08:36)
[2022-05-23] MEDS: Enoxaparin 40 MG/0.4 ML Syringe SC (08:36)
[2022-05-23] MEDS: Donepezil HCl 5 MG Tablet PO (08:36)
[2022-05-23] MEDS: Citalopram 10 MG Tablet PO (08:36)
[2022-05-23 08:45] VITALS: BP 111/69; PULSE 87; RESP 18; TEMP 36.3; O2SAT 93
--- NOTE | 2022-05-23 09:43 | PCM.PN.HOSP ---
Subjective Subjective No change, doing well Objective Data Objective Data Vital Signs: Vital Signs Temp Pulse Resp BP Pulse Ox O2 Del Method 97.9 F 77 14 95/44 L 94 Room Air 05/23/22 03:00 05/23/22 03:00 05/23/22 03:00 05/23/22 03:00 05/23/22 03:00 05/23/22 03:00 Oxygen Delivery Method Room Air Weight: 184 lb 1.376 oz Body Mass Index (BMI) 29.7 Lab / Micro Data Result Diagrams: 05/23/22 05:25 05/23/22 05:25 Labs: Laboratory Results - last 24 hr 05/23/22 05:25: WBC 6.8, RBC 4.09 L, Hgb 11.7 L, Hct 36.3 L, MCV 88.8, MCH 28.6, MCHC 32.2, RDW Std Deviation 42.4, RDW Coeff of Rosalba 13.0, Plt Count 300, MPV 9.2, Immature Gran % (Auto) 0.400, Neut % (Auto) 49.8, Lymph % (Auto) 37.0, [place] % (Auto) 8.8, Eos % (Auto) 3.4, Baso % (Auto) 0.6, Absolute Neuts (auto) 3.4, Absolute Lymphs (auto) 2.53, Nucleated RBC % 0 05/23/22 05:25: Sodium 139, Potassium 4.0, Chloride 107, Carbon Dioxide 26.0, Anion Gap 6, BUN 13, Creatinine 0.79, Estim Creat Clear Calc 49.70, Est GFR (MDRD) Af Amer 93, Est GFR (MDRD) Non-Af 77, BUN/Creatinine Ratio 16.4, Glucose 105, Calcium 9.1 Micro: Microbiology 05/12/22 22:50 Blood Culture (Wb) - Anticubital Left Blood Culture - Final No growth in 5 days. 05/12/22 23:27 Blood Culture (Wb) - Anticubital Left Blood Culture - Final No growth in 5 days. 05/12/22 23:30 Urine Catheter - Catheter Urine Culture - Final Culture exhibits no growth. 05/14/22 13:00 Stool Stool Occult Blood (LEO) - Final Occult Blood Positive 05/12/22 23:30 Nasal Secretion SARS-CoV-2 Antigen (Rapid) - Final SARS-CoV-2 (COVID 19) Rhythm Strip Rhythm Strip: Sinus Tach Rate: 115 Ectopy: None Physical Exam Narrative General: Alert, Oriented x3, Cooperative, No apparent distress HEENT: Atraumatic, PERRLA, EOMI, Normocephalic Oral: Moist Mucosa Neck: Supple, No JVD Lungs: Diminished, Normal air movement, No rhonchi, No wheeze, No rales Cardiovascular: Regular rate, Regular Rhythm, Normal S1, Normal S2, No murmurs Abdomen: Soft, Non Tender, Non-Distended, No Hepato-splenomegaly Extremities: No edema, Capillary Refill Less than 3 Seconds Skin: No rashes, No breakdown Musculoskeletal: No Tenderness to Palpation of Joints or Extremities Neurological: Cranial nerves II-XII grossly intact, Motor Exam 5/5 strength throughout, Sensory exam intact to light touch and pain Psych/Mental Status: Normal Affect, Appropriate Assessment & Plan Assessment/Plan (1) COVID: (2) Fever: (3) Weakness: PLAN: Plan 1. COVID 19 infection?resolved/debility from COVID ?Removed precautions ? Planning for discharge to senior living ? Continue with PT/OT 2. Dementia with behavioral disturbance/depression ? She has been intermittently agitated during her stay ? Continue with her home medications ? She was getting agitated on Seroquel so she was transitioned to Risperdal ? Also on Klonopin, continue with Effexor 3. Hypothyroidism ? Stable ? Continue with Synthroid 4. Transient anemia ? This is likely due to minor GI bleed ? Stool occult was positive however here hemoglobin went from 9.2 to 13.3 without any blood transfusions or interventions ? She can follow-up with gastroenterology as an outpatient DVT: Albino Charges/Coding Visit Charges OBSV E&M: 78695 Subsequent observation care L1
[2022-05-23] MEDS: RisperiDONE 0.25 MG Tablet PO ×2 (10:14→21:03)
[2022-05-23 14:45] VITALS: BP 117/85; PULSE 92; RESP 18; TEMP 36.4; O2SAT 99
[2022-05-23 20:45] VITALS: BP 118/65; PULSE 87; RESP 16; TEMP 36.3; O2SAT 95
[2022-05-23] MEDS: clonazePAM 1 MG Tablet PO (21:03)
[2022-05-23] MEDS: MELATONIN 10 MG TABLET PO (21:03)
[2022-05-23] MEDS: Atorvastatin Calcium 20 MG Tablet PO (21:03)
[2022-05-24 02:45] VITALS: BP 113/59; PULSE 77; RESP 14; TEMP 36.7; O2SAT 96
[2022-05-24] MEDS: Levothyroxine 25 MCG TABLET PO (06:29)
[2022-05-24 08:45] VITALS: BP 107/52; PULSE 73; RESP 14; TEMP 36.5; O2SAT 97
[2022-05-24] MEDS: Venlafaxine XR 150 MG Capsule PO (09:24)
[2022-05-24] MEDS: Donepezil HCl 5 MG Tablet PO (09:24)
[2022-05-24] MEDS: Citalopram 10 MG Tablet PO (09:24)
[2022-05-24] MEDS: Enoxaparin 40 MG/0.4 ML Syringe SC (09:24)
[2022-05-24] MEDS: RisperiDONE 0.25 MG Tablet PO ×2 (09:25→20:38)
--- NOTE | 2022-05-24 10:04 | PN.HOSP_ITS ---
Subjective Subjective Patient seen and examined. She had no active complaints and had an uneventful night. Review of systems is otherwise negative. She is awaiting placement. Objective Data Objective Data Vital Signs: Vital Signs Temp Pulse Resp BP Pulse Ox O2 Del Method 97.7 F L 73 14 107/52 L 97 Room Air 05/24/22 08:45 05/24/22 08:45 05/24/22 08:45 05/24/22 08:45 05/24/22 08:45 05/24/22 09:45 Oxygen Delivery Method Room Air Weight: 184 lb 1.376 oz Body Mass Index (BMI) 29.7 Lab / Micro Data Result Diagrams: 05/23/22 05:25 05/23/22 05:25 Micro: Microbiology 05/12/22 22:50 Blood Culture (Wb) - Anticubital Left Blood Culture - Final No growth in 5 days. 05/12/22 23:27 Blood Culture (Wb) - Anticubital Left Blood Culture - Final No growth in 5 days. 05/12/22 23:30 Urine Catheter - Catheter Urine Culture - Final Culture exhibits no growth. 05/14/22 13:00 Stool Stool Occult Blood (LEO) - Final Occult Blood Positive 05/12/22 23:30 Nasal Secretion SARS-CoV-2 Antigen (Rapid) - Final SARS-CoV-2 (COVID 19) Rhythm Strip Rhythm Strip: Sinus Tach Rate: 115 Ectopy: None Physical Exam Const alert, oriented x3 and no apparent distress Orientation / Consciousness: awake and oriented to person HEENT normocephalic, head/scalp atraumatic, moist oral mucous membranes and oropharynx normal Head and Scalp: normocephalic Mouth: oral and palatal mucosa normal Eyes PERRL, EOMs intact bilaterally, conjunctivae normal and no scleral icterus Neck no lymphadenopathy, supple and no JVD General: trachea midline Resp normal respiratory effort, normal air movement, no retractions, no use of accessory muscles and clear to auscultation bilaterally Cardio regular rate, regular rhythm, S1 normal heart sound, S2 normal heart sound, no murmurs and peripheral pulses 2+ throughout GI normal to inspection, nondistended, normoactive bowel sounds, soft to palpation, non-tender and non-distended Extremity normal to inspection, full ROM, normal capillary refill and no clubbing, cyanosis or edema Extremity Narrative: No edema appreciated Skin Lesions: no lesions Rashes: no rashes Neuro oriented x3, CN's II-XII intact bilaterally, moves all extremities, no focal motor deficits and no sensory deficits noted Neuro Narrative: No overt focal deficits appreciated Sensorium / Orientation: awake and alert Speech: speech normal Motor Exam: strength 5/5 throughout Psych cooperative; Negative for thought process normal Psych Narrative: Cooperative and pleasant this AM Assessment & Plan Assessment/Plan (1) COVID: (2) Fever: (3) Weakness: PLAN: Plan #COVID 19 infection * now out of isolation. * on room air. * #Hypothyroidism: on synthroid #Iron deficiency Anemia * gastroenterology consulted. To follow up with GI on outpatient basis for further workup as needed * on oral iron supplements * #Hyperlipidemia: on statin #Depression: On Effexor #Dementia * Has had occasional behavioral disturbance but now stable. On donepezil and memantine. DVT prophylaxis: SCDs. Disposition: awaiting placement Charges/Coding Visit Charges Inpatient E&M: 33521 Subs Hosp L2
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
--- NOTE | 2022-05-24 12:48 | CASEMGMT ---
Discharge Political Science Instructor This information writer gave Deo at [facility] medicaid pending number. Sidney LE Events Intern
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
[2022-05-24 15:37] VITALS: BP 115/49; PULSE 85; RESP 14; TEMP 36.7; O2SAT 99
[2022-05-24 16:08] VITALS: BP 115/49; PULSE 85; RESP 14; TEMP 36.7; O2SAT 99
[2022-05-24 20:09] VITALS: BP 106/60; PULSE 88; RESP 16; TEMP 36.8; O2SAT 95
[2022-05-24] MEDS: Atorvastatin Calcium 20 MG Tablet PO (20:38)
[2022-05-24] MEDS: MELATONIN 10 MG TABLET PO (20:38)
[2022-05-24] MEDS: clonazePAM 1 MG Tablet PO (20:58)
[2022-05-25 02:10] VITALS: BP 116/56; PULSE 76; RESP 16; TEMP 36.6; O2SAT 98
[2022-05-25] MEDS: Levothyroxine 25 MCG TABLET PO (05:46)
[2022-05-25 07:59] VITALS: BP 126/52; PULSE 69; RESP 14; TEMP 36.7; O2SAT 95
--- NOTE | 2022-05-25 09:03 | CASEMGMT ---
Discharge Psychiatric Secretary This ghost writer called Deo at [facility] and left a message. Sidney LE Stock Mover
[2022-05-25] MEDS: Donepezil HCl 5 MG Tablet PO (09:17)
[2022-05-25] MEDS: RisperiDONE 0.25 MG Tablet PO ×3 (09:17→21:09)
[2022-05-25] MEDS: Citalopram 10 MG Tablet PO (09:17)
[2022-05-25] MEDS: Venlafaxine XR 150 MG Capsule PO (09:17)
[2022-05-25] MEDS: Enoxaparin 40 MG/0.4 ML Syringe SC (09:18)
--- NOTE | 2022-05-25 09:22 | PN.HOSP_ITS ---
Subjective Subjective Patient seen and examined. Her daughter was by her bedside. She had no active complaints and had an uneventful night. Review of systems otherwise negative. She is awaiting placement. Objective Data Objective Data Vital Signs: Vital Signs Temp Pulse Resp BP Pulse Ox O2 Del Method 98.0 F 69 14 126/52 H 95 Room Air 05/25/22 07:59 05/25/22 07:59 05/25/22 07:59 05/25/22 07:59 05/25/22 07:59 05/25/22 07:59 Oxygen Delivery Method Room Air Weight: 184 lb 1.376 oz Body Mass Index (BMI) 29.7 Lab / Micro Data Result Diagrams: 05/23/22 05:25 05/23/22 05:25 Micro: Microbiology 05/12/22 22:50 Blood Culture (Wb) - Anticubital Left Blood Culture - Final No growth in 5 days. 05/12/22 23:27 Blood Culture (Wb) - Anticubital Left Blood Culture - Final No growth in 5 days. 05/12/22 23:30 Urine Catheter - Catheter Urine Culture - Final Culture exhibits no growth. 05/14/22 13:00 Stool Stool Occult Blood (LEO) - Final Occult Blood Positive 05/12/22 23:30 Nasal Secretion SARS-CoV-2 Antigen (Rapid) - Final SARS-CoV-2 (COVID 19) Rhythm Strip Rhythm Strip: Sinus Tach Rate: 115 Ectopy: None Physical Exam Const alert, oriented x3 and no apparent distress Constitutional Narrative: remains somewhat confused General Appearance: anxious Orientation / Consciousness: awake and oriented to person HEENT normocephalic, head/scalp atraumatic, moist oral mucous membranes and oropharynx normal Head and Scalp: normocephalic Mouth: oral and palatal mucosa normal Eyes PERRL, EOMs intact bilaterally, conjunctivae normal and no scleral icterus Eyes Narrative: EOM grossly intact, anicteric Neck no lymphadenopathy, supple and no JVD General: trachea midline Resp normal respiratory effort, normal air movement, no retractions, no use of accessory muscles and clear to auscultation bilaterally Cardio regular rate, regular rhythm, S1 normal heart sound, S2 normal heart sound, no murmurs and peripheral pulses 2+ throughout Rate: tachycardic GI normal to inspection, nondistended, normoactive bowel sounds, soft to palpation, non-tender and non-distended Extremity normal to inspection, full ROM, normal capillary refill and no clubbing, cyanosis or edema Extremity Narrative: No edema appreciated Skin Lesions: no lesions Rashes: no rashes Neuro oriented x3, CN's II-XII intact bilaterally, moves all extremities and no focal motor deficits Sensorium / Orientation: awake and alert Speech: speech normal Motor Exam: strength 5/5 throughout Psych cooperative; Negative for thought process normal Assessment & Plan Assessment/Plan (1) COVID: (2) Fever: (3) Weakness: PLAN: Plan #COVID 19 infection * now out of isolation. * on room air. * #Hypothyroidism: on synthroid #Iron deficiency Anemia * gastroenterology consulted. To follow up with GI on outpatient basis for further workup as needed * on oral iron supplements * #Hyperlipidemia: on statin #Depression: On Effexor #Dementia * Has had occasional behavioral disturbance but now stable. On donepezil and memantine. DVT prophylaxis: SCDs. Disposition: awaiting placement Charges/Coding Visit Charges Inpatient E&M: 35743 Subs Hosp L2
--- NOTE | 2022-05-25 09:48 | CASEMGMT ---
Addendum entered by Kiersten Jenkins 05/25/22 10:45: Discharge Honing Machine Operator [employer] PT/OT notes sent via [facility]. Sidney Garcia Original Note: Discharge Honing Machine Operator [employer] Deo reached out. Patient has been accepted at [facility]. Deo requested PT/OT notes and progress Note. Progress note was sent. PT/OT needs sent when available. VINAY Garcia notified. Sidney Garcia
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
[2022-05-25 15:56] VITALS: BP 104/66; PULSE 80; RESP 16; TEMP 36.8; O2SAT 95
[2022-05-25 20:37] VITALS: BP 115/55; PULSE 87; RESP 16; TEMP 36.5; O2SAT 94
[2022-05-25] MEDS: MELATONIN 10 MG TABLET PO (21:09)
[2022-05-25] MEDS: clonazePAM 1 MG Tablet PO (21:09)
[2022-05-25] MEDS: Atorvastatin Calcium 20 MG Tablet PO (21:09)
[2022-05-26 02:37] VITALS: BP 110/68; PULSE 65; RESP 16; TEMP 36.6; O2SAT 95
[2022-05-26] MEDS: Levothyroxine 25 MCG TABLET PO (05:11)
[2022-05-26] MEDS: Citalopram 10 MG Tablet PO (09:54)
[2022-05-26] MEDS: Venlafaxine XR 150 MG Capsule PO (09:54)
[2022-05-26] MEDS: Donepezil HCl 5 MG Tablet PO (09:54)
[2022-05-26] MEDS: Enoxaparin 40 MG/0.4 ML Syringe SC (09:55)
[2022-05-26] MEDS: RisperiDONE 0.25 MG Tablet PO ×2 (09:56→22:29)
[2022-05-26 10:00] VITALS: BP 117/63; PULSE 78; RESP 18; TEMP 36.7; O2SAT 97
--- NOTE | 2022-05-26 10:18 | PN.HOSP_ITS ---
Subjective Subjective Patient seen and examined. She had no active complaints and had an uneventful night. She is awaiting placement. Review of systems otherwise negative. Objective Data Objective Data Vital Signs: Vital Signs Temp Pulse Resp BP Pulse Ox O2 Del Method 98.0 F 78 18 117/63 97 Room Air 05/26/22 10:00 05/26/22 10:00 05/26/22 10:00 05/26/22 10:00 05/26/22 10:00 05/26/22 10:00 Oxygen Delivery Method Room Air Weight: 184 lb 1.376 oz Body Mass Index (BMI) 29.7 Lab / Micro Data Result Diagrams: 05/23/22 05:25 05/23/22 05:25 Micro: Microbiology 05/12/22 22:50 Blood Culture (Wb) - Anticubital Left Blood Culture - Final No growth in 5 days. 05/12/22 23:27 Blood Culture (Wb) - Anticubital Left Blood Culture - Final No growth in 5 days. 05/12/22 23:30 Urine Catheter - Catheter Urine Culture - Final Culture exhibits no growth. 05/14/22 13:00 Stool Stool Occult Blood (LEO) - Final Occult Blood Positive 05/12/22 23:30 Nasal Secretion SARS-CoV-2 Antigen (Rapid) - Final SARS-CoV-2 (COVID 19) Rhythm Strip Rhythm Strip: Sinus Tach Rate: 115 Ectopy: None Physical Exam Const alert, oriented x3 and no apparent distress General Appearance: anxious Orientation / Consciousness: awake and oriented to person HEENT normocephalic, head/scalp atraumatic, moist oral mucous membranes and oropharynx normal Head and Scalp: normocephalic Mouth: oral and palatal mucosa normal and dry mucous membranes Eyes PERRL, EOMs intact bilaterally, conjunctivae normal and no scleral icterus Neck no lymphadenopathy, supple and no JVD Resp normal respiratory effort, normal air movement, no retractions, no use of acc essory muscles and clear to auscultation bilaterally Cardio regular rate, regular rhythm, S1 normal heart sound, S2 normal heart sound, no murmurs and peripheral pulses 2+ throughout GI normal to inspection, nondistended, normoactive bowel sounds, soft to palpation, non-tender and non-distended Extremity normal to inspection, full ROM, normal capillary refill and no clubbing, cyanosis or edema Extremity Narrative: No edema appreciated Skin Lesions: no lesions Rashes: no rashes Neuro oriented x3, CN's II-XII intact bilaterally, moves all extremities, no focal motor deficits and no sensory deficits noted Sensorium / Orientation: awake and alert Speech: speech normal Motor Exam: strength 5/5 throughout Psych cooperative; Negative for thought process normal Psych Narrative: Cooperative and pleasant this AM Assessment & Plan Assessment/Plan (1) COVID: (2) Fever: (3) Weakness: PLAN: Plan #COVID 19 infection * now out of isolation. * on room air. * #Hypothyroidism: on synthroid #Iron deficiency Anemia * gastroenterology consulted and reviewed patient. To follow up with GI on outpatient basis for further workup as needed * on oral iron supplements * #Hyperlipidemia: on statin #Depression: On Effexor #Dementia * Has had occasional behavioral disturbance but now stable. On donepezil and memantine. DVT prophylaxis: SCDs. Disposition: awaiting placement Charges/Coding Visit Charges Inpatient E&M: 72787 Subs Hosp L2
--- NOTE | 2022-05-26 11:41 | CASEMGMT ---
Social Work SW received pc from pt daughter, Srini. Srini stated was attempting a three way call with [facility] to discuss precert for pt but lost [facility] rep. Srini requested information from this SW on why [facility] reported they have not received precert request from [facility]. SW explained to Srini that precert request does not come from [facility] and that chosen SNF, [facility], is responsible for sending that information to the insurance company. Srini expressed frustration. Srini made some statements with garbled, explicit language. SW provided contact name of Deo, the admission coordinator at [facility] and shared with Srini that per this SW's communication with Deo yesterday, Deo reported starting precert at 12:07 on 05/25/22. Srini to call [facility] for more information. PLAN: [facility], pending precert SEDRICK Vázquez
[2022-05-26 15:00] VITALS: BP 111/65; PULSE 90; RESP 18; TEMP 36.6; O2SAT 95
--- NOTE | 2022-05-26 15:43 | CASEMGMT ---
Addendum entered by Radha Meehan 05/26/22 15:48: Vinay called [facility] navigator back to provide updated information given by Doe SANCHEZ, at [facility]. Left message and contact number should Nahomy need to ask further information. SEDRICK Vázquez Original Note: Social Work SW received pc from [facility] navigator stating no precert has been received for pt as of yet (2pm this day). VINAY called [facility] and spoke to Deo, ?the LAURA there, said therapy notes were re-sent at 3:31 today. Deo stated contact for insurance is an Radha Sahu (sp?) but did not provide contact info for this person. PLAN: [facility], pending precert SEDRICK Vázquez
[2022-05-26 22:26] VITALS: BP 108/68; PULSE 89; RESP 15; TEMP 36.2; O2SAT 94
[2022-05-26] MEDS: clonazePAM 1 MG Tablet PO (22:29)
[2022-05-26] MEDS: Atorvastatin Calcium 20 MG Tablet PO (22:29)
[2022-05-26] MEDS: MELATONIN 10 MG TABLET PO (22:29)
[2022-05-27 04:00] VITALS: BP 109/74; PULSE 77; RESP 15; TEMP 36.5; O2SAT 97
[2022-05-27] MEDS: Levothyroxine 25 MCG TABLET PO (05:49)
[2022-05-27] MEDS: RisperiDONE 0.25 MG Tablet PO ×2 (09:17→20:19)
[2022-05-27] MEDS: Venlafaxine XR 150 MG Capsule PO (09:17)
[2022-05-27] MEDS: Donepezil HCl 5 MG Tablet PO (09:17)
[2022-05-27] MEDS: Enoxaparin 40 MG/0.4 ML Syringe SC (09:18)
[2022-05-27] MEDS: Citalopram 10 MG Tablet PO (09:18)
[2022-05-27 09:20] VITALS: BP 106/64; PULSE 81; RESP 18; TEMP 36.7; O2SAT 93
--- NOTE | 2022-05-27 09:47 | CASEMGMT ---
Discharge Nursing Information Systems Coordinator This program writer called Deo at [facility] to follow up on pre-cert. Pre-cert was submitted on 05/25/2022. Deo stated patient daughter has been calling him multiple times and giving him a hard time. Deo is very frustrated with family as pre-cert information has been sent to insurance per Deo. Deo gave this program writer his cell number of [phone] for any further questions. Sidney LE Part Time
--- NOTE | 2022-05-27 14:15 | CASEMGMT ---
Social Work 0957 VM left with Nahomy [facility] Mona to confirm precert has been obtained. Will await response. 1002 VINAY spoke with Ashvin at [facility] to inquire about possibility of pt coming to assisted living under waiver. Ashvin states they do not have a room available as the assisted living is undergoing renovations and they do not know when this will be available. She states pt family is aware of this. Per Ashvin Eric is [facility] Collating Machine Operator working on assisted living waiver approval and Ashvin is not certain if assisted living waiver has been finalized. 1020 Deo from [facility] states he spoke with insurance and determination has not been made yet. 1021 SW left VM with Rox Eric CM at [facility] to discuss pt's eligibility for AL waiver. Will await response. 1400 Second VM left at [facility], this time for Yulia Amilcar to inquire about AL waiver eligibility. 1407 Phone call placed to pt daughter Srini to discuss discharge plan. VINAY informed Srini that it is very unlikely that pt will be approved for skilled level of care due to high level of functioning. Even if pt is approved, it will only be for a very short amount of time. SW requesting to talk about alternate plan. Srini states she is not able to take pt home as Srini works, pt's mental status has declined and pt cannot be at home alone. Srini then states they are working on AL if pt cannot go skilled. VINAY informed that Ashvin at [facility] states they do not have a room nor waiver approval. Srini is aware of this and states she choose [facility] as facility of choice as they are a sister facility of [facility] and she is hopeful pt can go to their AL until the room at [facility] is available. VINAY explained that Waiver program eligibility has not yet been verified. VINAY spoke with Srini regarding ECF placement at [facility] under pending medicaid if pt is denied skilled stay by insurance. Srini states she would be agreeable to this but has not had time to complete any additional paperwork for this. If pt is denied skilled stay, Sriin states she will speak with insurance again like she did last time. Srini then hung up as she had to get back to work. 1500 Return call for Rox at [facility]. She states that on 05/21 she was informed by Marjan at [facility] that pt was approved for Medicaid for Waiver program, they are now waiting on a room at [facility] which is not available. 1505 Attempt to call Marjan at [facility] to discuss Medicaid status for ECF in the event pt is denied skilled level by insurance. Unable to reach Marjan. Will keep trying. Plan: Awaiting insurance determination from [facility]. Back up plan is to go to [facility] under medicaid pending.
[2022-05-27 14:54] VITALS: BP 130/71; PULSE 103; RESP 18; TEMP 36.5; O2SAT 95
--- NOTE | 2022-05-27 15:28 | CHAPLAIN ---
Type of Pastoral Visit ___ Initial Visit ___ Follow-up Visit ___ On-call Visit ___ General Patient Visit ___ Spiritual Assessment ___ Family Conference ___ Bereavement ___ Rapid Response ___ Code Blue ___ Other (describe below) Pastoral Care Referral From ___ Patient ___ Family ___ Nurse ___ Physician ___ Central Office Equipment Engineer ___ Party Plan Sales Director ___ Other (describe below) Sacrament/Intervention ___ Active listening ___ Anointing ___ Hindu ___ Bereavement ___ Communion ___ Merle exploration ___ ___ Life review ___ Prayer ___ Reconciliation ___ Sacrament of Sick ___ Supportive presence ___ Wedding ___ Other (describe below) Pastoral Comments patient came out into the hallway and found this food service utility worker asking for assistance to turn off the water in her bathroom; assisted in the same and offered support to patient; pt stated she is doing well, having great care, and thanks for the assistance
--- NOTE | 2022-05-27 15:49 | PN.HOSP_ITS ---
Subjective Subjective Patient seen and examined. She has no active complaints and is awaiting placement. Review of systems is otherwise negative. Objective Data Objective Data Vital Signs: Vital Signs Temp Pulse Resp BP Pulse Ox O2 Del Method 97.7 F L 103 H 18 130/71 H 95 Room Air 05/27/22 14:54 05/27/22 14:54 05/27/22 14:54 05/27/22 14:54 05/27/22 14:54 05/27/22 14:54 Oxygen Delivery Method Room Air Weight: 184 lb 1.376 oz Body Mass Index (BMI) 29.7 Lab / Micro Data Result Diagrams: 05/23/22 05:25 05/23/22 05:25 Micro: Microbiology 05/12/22 22:50 Blood Culture (Wb) - Anticubital Left Blood Culture - Final No growth in 5 days. 05/12/22 23:27 Blood Culture (Wb) - Anticubital Left Blood Culture - Final No growth in 5 days. 05/12/22 23:30 Urine Catheter - Catheter Urine Culture - Final Culture exhibits no growth. 05/14/22 13:00 Stool Stool Occult Blood (LEO) - Final Occult Blood Positive 05/12/22 23:30 Nasal Secretion SARS-CoV-2 Antigen (Rapid) - Final SARS-CoV-2 (COVID 19) Rhythm Strip Rhythm Strip: Sinus Tach Rate: 115 Ectopy: None Physical Exam Const alert and no apparent distress General Appearance: anxious Orientation / Consciousness: awake HEENT normocephalic, head/scalp atraumatic, moist oral mucous membranes and oropharynx normal Head and Scalp: normocephalic Mouth: oral and palatal mucosa normal Eyes PERRL, EOMs intact bilaterally, conjunctivae normal and no scleral icterus Eyes Narrative: EOM grossly intact, anicteric Neck no lymphadenopathy, supple and no JVD General: trachea midline Resp normal respiratory effort, normal air movement, no retractions, no use of accessory muscles and clear to auscultation bilaterally Cardio regular rate, regular rhythm, S1 normal heart sound, S2 normal heart sound, no murmurs and peripheral pulses 2+ throughout Rate: tachycardic GI normal to inspection, nondistended, normoactive bowel sounds, soft to palpation, non-tender and non-distended Extremity normal to inspection, full ROM, normal capillary refill and no clubbing, cyanosis or edema Extremity Narrative: No edema appreciated Skin Lesions: no lesions Rashes: no rashes Neuro CN's II-XII intact bilaterally, moves all extremities, no focal motor deficits and no sensory deficits noted Sensorium / Orientation: awake and alert Speech: speech normal Motor Exam: strength 5/5 throughout Psych cooperative; Negative for thought process normal Assessment & Plan Assessment/Plan (1) COVID: (2) Fever: (3) Weakness: PLAN: Plan #COVID 19 infection * now out of isolation. * on room air. * #Hypothyroidism: on synthroid #Iron deficiency Anemia * gastroenterology consulted and reviewed patient. * To follow up with GI on outpatient basis for further workup as needed * on oral iron supplements * #Hyperlipidemia: on statin #Depression: On Effexor #Dementia * Has had occasional behavioral disturbance but now stable. On donepezil and memantine. DVT prophylaxis: SCDs. Disposition: awaiting placement Charges/Coding Visit Charges Inpatient E&M: 67336 Subs Hosp L2
[2022-05-27 20:16] VITALS: BP 116/63; PULSE 93; RESP 15; TEMP 37; O2SAT 95
[2022-05-27] MEDS: MELATONIN 10 MG TABLET PO (20:19)
[2022-05-27] MEDS: Atorvastatin Calcium 20 MG Tablet PO (20:19)
[2022-05-27] MEDS: clonazePAM 1 MG Tablet PO (20:19)
[2022-05-28 04:00] VITALS: BP 112/60; PULSE 92; RESP 16; TEMP 36.9; O2SAT 95
[2022-05-28] MEDS: Levothyroxine 25 MCG TABLET PO (06:19)
[2022-05-28] MEDS: RisperiDONE 0.25 MG Tablet PO ×2 (09:42→22:44)
[2022-05-28] MEDS: Enoxaparin 40 MG/0.4 ML Syringe SC (09:42)
[2022-05-28] MEDS: Citalopram 10 MG Tablet PO (09:43)
[2022-05-28] MEDS: Donepezil HCl 5 MG Tablet PO (09:43)
[2022-05-28] MEDS: Venlafaxine XR 150 MG Capsule PO (09:43)
[2022-05-28 09:46] VITALS: BP 106/67; PULSE 86; RESP 18; TEMP 36.6; O2SAT 96
--- NOTE | 2022-05-28 10:11 | PN.HOSP_ITS ---
Subjective Subjective Patient seen and examined. She is confused. She looked comfortable though and per her nurse, no active events overnight. She is awaiting placement. Objective Data Objective Data Vital Signs: Vital Signs Temp Pulse Resp BP Pulse Ox O2 Del Method 97.8 F 86 18 106/67 96 Room Air 05/28/22 09:46 05/28/22 09:46 05/28/22 09:46 05/28/22 09:46 05/28/22 09:46 05/28/22 09:46 Oxygen Delivery Method Room Air Weight: 184 lb 1.376 oz Body Mass Index (BMI) 29.7 Lab / Micro Data Result Diagrams: 05/23/22 05:25 05/23/22 05:25 Micro: Microbiology 05/12/22 22:50 Blood Culture (Wb) - Anticubital Left Blood Culture - Final No growth in 5 days. 05/12/22 23:27 Blood Culture (Wb) - Anticubital Left Blood Culture - Final No growth in 5 days. 05/12/22 23:30 Urine Catheter - Catheter Urine Culture - Final Culture exhibits no growth. 05/14/22 13:00 Stool Stool Occult Blood (LEO) - Final Occult Blood Positive 05/12/22 23:30 Nasal Secretion SARS-CoV-2 Antigen (Rapid) - Final SARS-CoV-2 (COVID 19) Rhythm Strip Rhythm Strip: Sinus Tach Rate: 115 Ectopy: None Physical Exam Const alert and no apparent distress Constitutional Narrative: remains somewhat confused Orientation / Consciousness: awake, oriented to person and confused HEENT normocephalic, head/scalp atraumatic, moist oral mucous membranes and oropharynx normal Head and Scalp: normocephalic Eyes PERRL, conjunctivae normal and no scleral icterus Neck no lymphadenopathy, supple and no JVD Resp normal respiratory effort, normal air movement, no retractions, no use of accessory muscles and clear to auscultation bilaterally Cardio regular rate, regular rhythm, S1 normal heart sound, S2 normal heart sound, no murmurs and peripheral pulses 2+ throughout GI normal to inspection, nondistended, normoactive bowel sounds, soft to palpation, non-tender and non-distended Extremity normal to inspection, full ROM, normal capillary refill and no clubbing, cyanosis or edema Skin Lesions: no lesions Rashes: no rashes Neuro CN's II-XII intact bilaterally, moves all extremities, no focal motor deficits and no sensory deficits noted Sensorium / Orientation: awake and alert Speech: speech normal Motor Exam: strength 5/5 throughout Psych cooperative; Negative for thought process normal Psych Narrative: Cooperative and pleasant this AM Mood & Affect: tearful Assessment & Plan Assessment/Plan (1) COVID: (2) Fever: (3) Weakness: PLAN: Plan #COVID 19 infection * now out of isolation. * on room air. * #Hypothyroidism: on synthroid #Iron deficiency Anemia * gastroenterology consulted and reviewed patient. * To follow up with GI on outpatient basis for further workup as needed * on oral iron supplements * #Hyperlipidemia: on statin #Depression: On Effexor #Dementia * Has had occasional behavioral disturbance but now stable. On donepezil and memantine. DVT prophylaxis: SCDs. Disposition: still awaiting placement Charges/Coding Visit Charges Inpatient E&M: 68221 Subs Hosp L2
[2022-05-28 14:13] VITALS: BP 93/77; PULSE 90; RESP 18; TEMP 36.5; O2SAT 95
--- NOTE | 2022-05-28 14:33 | PCM.TXEXTCAR ---
Diet Diet Order/Speech Therapy: 05/13/22 01:19 Diet: Cardiac - Heart Healthy Food consistency:: Regular Liquid Consistency:: Regular/Thin Routine Orders/Code Status Enema Type: Fleetz Enema Frequency: Daily PRN Suppository Type: Dulcolax 10mg O2 Frequency: PRN Keep PO Greater than or Equal to (%): 90 Therapies Weight Bearing: Weight bearing as tolerated Physical Therapy: Eval and Treat Occupational Therapy: Eval and Treat Problem/Diagnosis (1) COVID: Status: Acute Code(s): U07.1 - COVID-19 (2) Fever: Status: Acute Code(s): R50.9 - Fever, unspecified (3) Weakness: Status: Acute Code(s): R53.1 - Weakness Plan #COVID 19 infection now out of isolation. on room air. #Hypothyroidism: on synthroid #Iron deficiency Anemia gastroenterology consulted and reviewed patient. To follow up with GI on outpatient basis for further workup as needed on oral iron supplements #Hyperlipidemia: on statin #Depression: On Effexor #Dementia Has had occasional behavioral disturbance but now stable. On donepezil and memantine. DVT prophylaxis: SCDs. Disposition: still awaiting placement Allergies/Procedures Done in Hospital Allergies naproxen Allergy (Unknown, Verified 01/24/20 09:31) Unknown STATES HAS 1 ALLERGY, NOT KNOWN Adverse Reaction (Uncoded 12/07/19 13:13) NOT KNOWN Procedures: None Type of Care/Length of Stay Estimated LOS: More Than 30 Days Type of Care Needed: Intermediate Rehab Potential: Fair Prognosis: Fair Additional Orders/Day of Discharge Day of Discharge: 05/28/22 Discharge Plan Admission Admit Date/Time: 05/13/22 00:47 Primary Reason for Your Visit: COVID 19 infection Attending Provider: Magda Reece Primary Care Provider: Lj Wheatley Consulting Providers: Madyson Hurtado ; Magda Reece ; Gypsy Chiang ; Scott Dallas Instructions Additional Instructions / Restrictions: Please follow up with GI on discharge for consideration of upper and lower endoscopy due to iron deficiency Discharge Orders/Prescriptions Prescriptions: Continued levothyroxine 25 MCG tablet 25 mcg PO DAILY clonazepam 1 mg Tablet 1 mg PO QHS Rx Instructions: administer 30 minutes before bedtime and can do 1/2 daily prn donepezil 5 mg Tablet 5 mg PO DAILY cetirizine [Zyrtec] 10 mg Tablet 10 mg PO DAILY citalopram [Celexa] 10 mg Tablet 10 mg PO DAILY venlafaxine [Effexor XR] 150 mg Capsule,Extended Release 24hr 150 mg PO DAILY rosuvastatin [Crestor] 10 mg Tablet 10 mg PO DAILY memantine [Namenda XR] 28 mg Capsule,Sprinkle,Er 24hr 28 mg PO DAILY Referrals / Follow Up: Tae Cordova MD [Non-Staff] - Lj Wheatley MD [Primary Care Provider] - Disposition Disposition (needs filled in before D/C Order can be placed): [facility]
--- NOTE | 2022-05-28 17:23 | CASEMGMT ---
Social Work Pt doing very with functional ADLs. Pt continues to be confused due to diagnosis of dementia. Pt will need 24 hour supervision. Pt dgt has stated she cannot provide this and pt is not safe to return home. VINAY spoke with Deo at [facility] [place] and he has spoke with HETAL and pt will be denied skilled stay due to functionality. VINAY spoke with Deo and VINAY at [facility] [place] and inquired if they had an option of waiver covered assisted living. They do not. VINAY inquired if they would accept pt as a Medicaid pending under a level of care. Deo and VINAY agreed to this if pt would qualify for Level of Care and this SW could provide medicaid pending number and date of application. Phone call to pt daughter Srini and explained that pt does not qualify for skilled level of care and that Intermediate level of care under medicaid is the next option. Srini is agreeable to pt going to [facility] [place] under Medicaid, intermediate LOC. VINAY spoke with Marjan at [facility] who states pt does have Medicaid pending #[id number] with application date of 03/24/22 and she is ready for approval upon proper admission somewhere. SW submitted for Level of Care and it was returned and confirmed and pt meets for Intermediate Level of Care. Phone call to Deo at [facility] [place] and all of the above information provided and request to discharge pt to [facility] [place]. Deo stating they are not able to accept pt until at least Tuesday. SEDRICK Mckeon
[2022-05-28 22:30] VITALS: BP 113/62; PULSE 95; RESP 17; TEMP 36.8; O2SAT 96
[2022-05-28] MEDS: clonazePAM 1 MG Tablet PO (22:43)
[2022-05-28] MEDS: Atorvastatin Calcium 20 MG Tablet PO (22:43)
[2022-05-28] MEDS: MELATONIN 10 MG TABLET PO (22:44)
[2022-05-29 04:30] VITALS: BP 110/60; PULSE 93; RESP 18; TEMP 36.7; O2SAT 96
[2022-05-29] MEDS: Levothyroxine 25 MCG TABLET PO (06:42)
--- NOTE | 2022-05-29 07:28 | PN.HOSP_ITS ---
Subjective Subjective Late entry note for 05/28/2022 Patient was seen and examined and had no active complaints. SHe did appear confused and tearful. Plan was for discharge to SNF on . However, discharge was canceled in the evening after the SNF said they could only take her on Tuesday06/01/2022. Objective Data Objective Data Vital Signs: Vital Signs Temp Pulse Resp BP Pulse Ox O2 Del Method 98.0 F 93 18 110/60 96 Room Air 05/29/22 04:30 05/29/22 04:30 05/29/22 04:30 05/29/22 04:30 05/29/22 04:30 05/29/22 04:30 Oxygen Delivery Method Room Air Weight: 184 lb 1.376 oz Body Mass Index (BMI) 29.7 Lab / Micro Data Result Diagrams: 05/23/22 05:25 05/23/22 05:25 Micro: Microbiology 05/12/22 22:50 Blood Culture (Wb) - Anticubital Left Blood Culture - Final No growth in 5 days. 05/12/22 23:27 Blood Culture (Wb) - Anticubital Left Blood Culture - Final No growth in 5 days. 05/12/22 23:30 Urine Catheter - Catheter Urine Culture - Final Culture exhibits no growth. 05/14/22 13:00 Stool Stool Occult Blood (LEO) - Final Occult Blood Positive 05/12/22 23:30 Nasal Secretion SARS-CoV-2 Antigen (Rapid) - Final SARS-CoV-2 (COVID 19) Rhythm Strip Rhythm Strip: Sinus Tach Rate: 115 Ectopy: None Physical Exam Const alert, oriented x3 and no apparent distress Constitutional Narrative: remains somewhat confused General Appearance: anxious Orientation / Consciousness: awake, oriented to person and confused HEENT normocephalic, head/scalp atraumatic, moist oral mucous membranes and oropharynx normal Eyes PERRL, EOMs intact bilaterally, conjunctivae normal and no scleral icterus Neck no lymphadenopathy, supple and no JVD General: trachea midline Resp normal respiratory effort, normal air movement, no retractions, no use of accessory muscles and clear to auscultation bilaterally Cardio regular rate, regular rhythm, S1 normal heart sound, S2 normal heart sound, no murmurs and peripheral pulses 2+ throughout Rate: tachycardic GI normal to inspection, nondistended, normoactive bowel sounds, soft to palpation, non-tender and non-distended Extremity normal to inspection, full ROM, normal capillary refill and no clubbing, cyanosis or edema Extremity Narrative: No edema appreciated Skin Lesions: no lesions Rashes: no rashes Neuro oriented x3, CN's II-XII intact bilaterally, moves all extremities, no focal motor deficits and no sensory deficits noted Sensorium / Orientation: awake and alert Speech: speech normal Motor Exam: strength 5/5 throughout Psych cooperative; Negative for thought process normal Psych Narrative: Cooperative and pleasant this AM Mood & Affect: tearful Assessment & Plan Assessment/Plan (1) COVID: (2) Fever: (3) Weakness: PLAN: Plan #COVID 19 infection * now out of isolation. * on room air. * #Hypothyroidism: on synthroid #Iron deficiency Anemia * gastroenterology consulted and reviewed patient. * To follow up with GI on outpatient basis for further workup as needed * on oral iron supplements * #Hyperlipidemia: on statin #Depression: On Effexor #Dementia * Has had occasional behavioral disturbance but now stable. On donepezil and memantine. DVT prophylaxis: SCDs. Disposition: was discharged to SNF, but discharge was canceled on evening of 05/28/2022 because SNF said they couldnt take her till Tuesday. Charges/Coding Visit Charges Inpatient E&M: [id number] Subs Hosp L2
[2022-05-29 09:16] VITALS: BP 105/48; PULSE 80; RESP 16; TEMP 36.4; O2SAT 97
[2022-05-29] MEDS: Enoxaparin 40 MG/0.4 ML Syringe SC (09:23)
[2022-05-29] MEDS: Venlafaxine XR 150 MG Capsule PO (09:23)
[2022-05-29] MEDS: Donepezil HCl 5 MG Tablet PO (09:24)
[2022-05-29] MEDS: Citalopram 10 MG Tablet PO (09:25)
[2022-05-29] MEDS: RisperiDONE 0.25 MG Tablet PO ×2 (09:26→21:37)
--- NOTE | 2022-05-29 09:42 | PN.HOSP_ITS ---
Subjective Subjective Patient seen and examined. She has no complaints and had an uneventful night. She was discharged yesterday but discharge had to be canceled due to [facility] saying they wouldnt be able to take her till Tuesday. Review of systems otherwise negative. She is less confused today. Objective Data Objective Data Vital Signs: Vital Signs Temp Pulse Resp BP Pulse Ox O2 Del Method 97.5 F L 80 16 105/48 L 97 Room Air 05/29/22 09:16 05/29/22 09:16 05/29/22 09:16 05/29/22 09:16 05/29/22 09:16 05/29/22 09:16 Oxygen Delivery Method Room Air Weight: 184 lb 1.376 oz Body Mass Index (BMI) 29.7 Lab / Micro Data Result Diagrams: 05/23/22 05:25 05/23/22 05:25 Micro: Microbiology 05/12/22 22:50 Blood Culture (Wb) - Anticubital Left Blood Culture - Final No growth in 5 days. 05/12/22 23:27 Blood Culture (Wb) - Anticubital Left Blood Culture - Final No growth in 5 days. 05/12/22 23:30 Urine Catheter - Catheter Urine Culture - Final Culture exhibits no growth. 05/14/22 13:00 Stool Stool Occult Blood (LEO) - Final Occult Blood Positive 05/12/22 23:30 Nasal Secretion SARS-CoV-2 Antigen (Rapid) - Final SARS-CoV-2 (COVID 19) Rhythm Strip Rhythm Strip: Sinus Tach Rate: 115 Ectopy: None Physical Exam Const alert and no apparent distress Constitutional Narrative: less confused today Orientation / Consciousness: awake, oriented to person and confused HEENT normocephalic, head/scalp atraumatic, moist oral mucous membranes and oropharynx normal Head and Scalp: normocephalic Mouth: oral and palatal mucosa normal Eyes PERRL, EOMs intact bilaterally, conjunctivae normal and no scleral icterus Neck no lymphadenopathy, supple and no JVD General: trachea midline Resp normal respiratory effort, normal air movement, no retractions, no use of accessory muscles and clear to auscultation bilaterally Cardio regular rate, regular rhythm, S1 normal heart sound, S2 normal heart sound, no murmurs and peripheral pulses 2+ throughout GI normal to inspection, nondistended, normoactive bowel sounds, soft to palpation, non-tender and non-distended Extremity normal to inspection, full ROM, normal capillary refill and no clubbing, cyanosis or edema Skin Lesions: no lesions Rashes: no rashes Neuro CN's II-XII intact bilaterally, moves all extremities, no focal motor deficits and no sensory deficits noted Sensorium / Orientation: awake and alert Speech: speech normal Motor Exam: strength 5/5 throughout Psych cooperative; Negative for thought process normal Assessment & Plan Assessment/Plan (1) COVID: (2) Fever: (3) Weakness: PLAN: Plan #COVID 19 infection * now out of isolation. * on room air. * #Hypothyroidism: on synthroid #Iron deficiency Anemia * gastroenterology reviewed patient. * To follow up with GI on outpatient basis for further workup as needed * on oral iron supplements * #Hyperlipidemia: on statin #Depression: On Effexor #Dementia * Has had occasional behavioral disturbance but now stable. On donepezil and memantine. DVT prophylaxis: SCDs. Disposition: for discharge to SNF on Tuesday. Charges/Coding Visit Charges Inpatient E&M: 96509 Subs Hosp L2
[2022-05-29 15:38] VITALS: BP 112/62; PULSE 77; RESP 16; TEMP 36.3; O2SAT 99
[2022-05-29 21:01] VITALS: BP 103/58; PULSE 74; RESP 16; TEMP 36.5; O2SAT 96
[2022-05-29] MEDS: MELATONIN 10 MG TABLET PO (21:36)
[2022-05-29] MEDS: clonazePAM 1 MG Tablet PO (21:37)
[2022-05-29] MEDS: Atorvastatin Calcium 20 MG Tablet PO (21:37)
[2022-05-30 02:11] VITALS: BP 103/48; PULSE 66; RESP 16; TEMP 36.6; O2SAT 96
[2022-05-30] MEDS: Levothyroxine 25 MCG TABLET PO (05:58)
[2022-05-30 07:48] VITALS: BP 112/55; PULSE 76; RESP 16; TEMP 36.7; O2SAT 95
[2022-05-30] MEDS: Donepezil HCl 5 MG Tablet PO (09:00)
[2022-05-30] MEDS: Citalopram 10 MG Tablet PO (09:00)
[2022-05-30] MEDS: Venlafaxine XR 150 MG Capsule PO (09:00)
[2022-05-30] MEDS: RisperiDONE 0.25 MG Tablet PO ×3 (09:00→22:10)
[2022-05-30] MEDS: Enoxaparin 40 MG/0.4 ML Syringe SC (09:00)
--- NOTE | 2022-05-30 10:15 | PN.HOSP_ITS ---
Subjective Subjective Patient seen and examined. She had no active complaints and had an uneventful night. Review of systems is otherwise negative. Objective Data Objective Data Vital Signs: Vital Signs Temp Pulse Resp BP Pulse Ox O2 Del Method 98.1 F 76 16 112/55 L 95 Room Air 05/30/22 07:48 05/30/22 07:48 05/30/22 07:48 05/30/22 07:48 05/30/22 07:48 05/30/22 07:48 Oxygen Delivery Method Room Air Weight: 184 lb 1.376 oz Body Mass Index (BMI) 29.7 Lab / Micro Data Result Diagrams: 05/23/22 05:25 05/23/22 05:25 Micro: Microbiology 05/12/22 22:50 Blood Culture (Wb) - Anticubital Left Blood Culture - Final No growth in 5 days. 05/12/22 23:27 Blood Culture (Wb) - Anticubital Left Blood Culture - Final No growth in 5 days. 05/12/22 23:30 Urine Catheter - Catheter Urine Culture - Final Culture exhibits no growth. 05/14/22 13:00 Stool Stool Occult Blood (LEO) - Final Occult Blood Positive 05/12/22 23:30 Nasal Secretion SARS-CoV-2 Antigen (Rapid) - Final SARS-CoV-2 (COVID 19) Rhythm Strip Rhythm Strip: Sinus Tach Rate: 115 Ectopy: None Physical Exam Const alert, oriented x3 and no apparent distress General Appearance: anxious Orientation / Consciousness: awake, oriented to person and confused HEENT normocephalic, head/scalp atraumatic, moist oral mucous membranes and oropharynx normal Head and Scalp: normocephalic Mouth: oral and palatal mucosa normal Eyes PERRL, EOMs intact bilaterally, conjunctivae normal and no scleral icterus Eyes Narrative: Neck no lymphadenopathy, supple and no JVD General: trachea midline Resp normal respiratory effort, normal air movement, no retractions, no use of accessory muscles and clear to auscultation bilaterally Cardio regular rate, regular rhythm, S1 normal heart sound, S2 normal heart sound, no murmurs and peripheral pulses 2+ throughout Rate: tachycardic GI normal to inspection, nondistended, normoactive bowel sounds, soft to palpation, non-tender and non-distended Extremity normal to inspection, full ROM, normal capillary refill and no clubbing, cyanosis or edema Neuro oriented x3, CN's II-XII intact bilaterally, moves all extremities, no focal motor deficits and no sensory deficits noted Neuro Narrative: No overt focal deficits appreciated Sensorium / Orientation: awake and alert Speech: speech normal Motor Exam: strength 5/5 throughout Psych cooperative; Negative for thought process normal Psych Narrative: Cooperative and pleasant this AM Mood & Affect: tearful Assessment & Plan Assessment/Plan (1) COVID: (2) Fever: (3) Weakness: PLAN: Plan #COVID 19 infection * now out of isolation. * on room air. * #Hypothyroidism: on synthroid #Iron deficiency Anemia * gastroenterology reviewed patient. * To follow up with GI on outpatient basis for further workup as needed * on oral iron supplements * #Hyperlipidemia: on statin #Depression: On Effexor #Dementia * Has had occasional behavioral disturbance but now stable. On donepezil and memantine. DVT prophylaxis: SCDs. Disposition: for discharge to SNF on Tuesday. Charges/Coding Visit Charges Inpatient E&M: [id number] Subs Hosp L2
[2022-05-30 17:32] VITALS: BP 128/83; PULSE 98; RESP 16; TEMP 36.8; O2SAT 98
[2022-05-30 21:30] VITALS: BP 106/56; PULSE 88; RESP 16; TEMP 36.6; O2SAT 98
[2022-05-30] MEDS: Atorvastatin Calcium 20 MG Tablet PO (22:09)
[2022-05-30] MEDS: MELATONIN 10 MG TABLET PO (22:09)
[2022-05-30] MEDS: clonazePAM 1 MG Tablet PO (22:12)
[2022-05-31] MEDS: Levothyroxine 25 MCG TABLET PO (06:28)
[2022-05-31 06:29] VITALS: BP 101/50; PULSE 73; RESP 16; TEMP 36.6; O2SAT 97
[2022-05-31] MEDS: Donepezil HCl 5 MG Tablet PO (08:09)
[2022-05-31] MEDS: Venlafaxine XR 150 MG Capsule PO (08:09)
[2022-05-31] MEDS: Citalopram 10 MG Tablet PO (08:10)
[2022-05-31] MEDS: Enoxaparin 40 MG/0.4 ML Syringe SC (08:10)
[2022-05-31] MEDS: RisperiDONE 0.25 MG Tablet PO (08:12)
--- NOTE | 2022-05-31 09:51 | PCM.TXEXTCAR ---
Diet Diet Order/Speech Therapy: 05/13/22 01:19 Diet: Cardiac - Heart Healthy Food consistency:: Regular Liquid Consistency:: Regular/Thin Routine Orders/Code Status Enema Type: Fleetz Enema Frequency: Daily PRN Suppository Type: Dulcolax 10mg O2 Frequency: PRN Keep PO Greater than or Equal to (%): 90 Routine Lab Work: CBC (within 3 days) and - (CMP within 3 days) Code Status: DNRCC-A Therapies Weight Bearing: Weight bearing as tolerated Physical Therapy: Eval and Treat Occupational Therapy: Eval and Treat Problem/Diagnosis (1) COVID: Status: Acute Code(s): U07.1 - COVID-19 (2) Fever: Status: Acute Code(s): R50.9 - Fever, unspecified (3) Weakness: Status: Acute Code(s): R53.1 - Weakness Allergies/Procedures Done in Hospital Allergies naproxen Allergy (Unknown, Verified 01/24/20 09:31) Unknown STATES HAS 1 ALLERGY, NOT KNOWN Adverse Reaction (Uncoded 12/07/19 13:13) NOT KNOWN Procedures: None Type of Care/Length of Stay Estimated LOS: More Than 30 Days Type of Care Needed: Intermediate Rehab Potential: Fair Prognosis: Fair Additional Orders/Day of Discharge Day of Discharge: 05/28/22 Discharge Plan Admission Admit Date/Time: 05/13/22 00:47 Primary Reason for Your Visit: COVID 19 infection Attending Provider: Pamella Hinds Primary Care Provider: Lj Wheatley Consulting Providers: Madyson Hurtado ; Magda Reece ; Gypsy Chiang ; Scott Dallas Instructions Additional Instructions / Restrictions: Please follow up with GI on discharge for consideration of upper and lower endoscopy due to iron deficiency Discharge Orders/Prescriptions Prescriptions: Continued levothyroxine 25 MCG tablet 25 mcg PO DAILY clonazepam 1 mg Tablet 1 mg PO QHS Rx Instructions: administer 30 minutes before bedtime and can do 1/2 daily prn donepezil 5 mg Tablet 5 mg PO DAILY cetirizine [Zyrtec] 10 mg Tablet 10 mg PO DAILY citalopram [Celexa] 10 mg Tablet 10 mg PO DAILY venlafaxine [Effexor XR] 150 mg Capsule,Extended Release 24hr 150 mg PO DAILY rosuvastatin [Crestor] 10 mg Tablet 10 mg PO DAILY memantine [Namenda XR] 28 mg Capsule,Sprinkle,Er 24hr 28 mg PO DAILY Referrals / Follow Up: Tae Cordova MD [Non-Staff] - Friend,DO Jeevan [Med Staff - Active Staff] - Within 2 Weeks Lj Wheatley MD [Primary Care Provider] - Disposition Disposition (needs filled in before D/C Order can be placed): [facility] Facility
--- NOTE | 2022-05-31 09:54 | DS.PCM_ITS ---
Providers Date of Admission: 05/13/22 Date of Discharge: 05/31/22 Primary Care Physician: Dr. Lj Wheatley MD Consultations 05/16/22 10:01 Consult: Gastroenterology Routine Consulting Provider: [facility] Reason for Consult: anemia, positive FOBT EMERGENT Consult: No MD Notified: Yes Date Notified: 05/16/22 Time Notified: 10:02 Method of Notification: Verbal Reason For Visit: COVID, DEBILITY Diagnosis Discharge Diagnosis (1) COVID: Status: Acute Code(s): U07.1 - COVID-19 (2) Fever: Status: Acute Code(s): R50.9 - Fever, unspecified (3) Weakness: Status: Acute Code(s): R53.1 - Weakness Medications at Discharge Home Medications levothyroxine 25 mcg tablet 25 mcg PO DAILY 12/07/19 cetirizine 10 mg tablet (Zyrtec) 10 mg PO DAILY 05/13/22 citalopram 10 mg tablet (Celexa) 10 mg PO DAILY 05/13/22 clonazepam 1 mg tablet 1 mg PO QHS 05/13/22 donepezil 5 mg tablet 5 mg PO DAILY 05/13/22 memantine 28 mg capsule sprinkle,extended release 24hr (Namenda XR) 28 mg PO DAILY 05/13/22 rosuvastatin 10 mg tablet (Crestor) 10 mg PO DAILY 05/13/22 venlafaxine 150 mg capsule,extended release 24 hr (Effexor XR) 150 mg PO DAILY 05/13/22 Hospital Course Operations None Procedures None Summary of Care Provided Minutes Spent on Discharge: 35 Hospital Course: 66-year-old female with past medical history of dementia, hypothyroidism, hyperlipidemia who comes in with generalized weakness and confusion. Patient was found to have a temperature of 104F on admission. Her daughter expressed concern about taking care of her at home. Work-up in the ED was suggestive of acute COVID-19 infection without hypoxia. Patient also had hemoglobin of 9.2 down from 13.1. Patient was admitted to the [facility] floor, and monitored.GI was consulted for iron deficiency anemia. She had no evidence of acute bleeding during this hospital stay. She was continued pantoprazole twice daily. Patient had a prolonged stay in the hospital waiting on intermediate facility to be discharged to. There were no acute events during this hospital stay. Hemoglobin improved to 12.9 at discharge. Patient was on oral iron. She will follow-up with GI in the outpatient for EGD/endoscopy. Physical Exam Narrative Physical exam: General: Alert, Oriented x3, Cooperative, No apparent distress HEENT: Atraumatic Oral: Moist Mucosa Neck: Supple Lungs: Clear to auscultation Cardiovascular: HS I+II, regular, no murmurs Abdomen: Bowel Sounds Present, Soft, Non Tender Extremities: No edema Skin: No rashes, No breakdown Neurological: Grossly intact Psych/Mental Status: Appropriate Weight / BMI Weight Weight: 83.5 kg Body Mass Index (BMI) 29.7 ABG / Lab / Microbiology Data Result Diagrams: 05/31/22 10:37 05/31/22 10:37 Microbiology: Microbiology 05/12/22 22:50 Blood Culture (Wb) - Anticubital Left Blood Culture - Final No growth in 5 days. 05/12/22 23:27 Blood Culture (Wb) - Anticubital Left Blood Culture - Final No growth in 5 days. 05/12/22 23:30 Urine Catheter - Catheter Urine Culture - Final Culture exhibits no growth. 05/14/22 13:00 Stool Stool Occult Blood (LEO) - Final Occult Blood Positive 05/12/22 23:30 Nasal Secretion SARS-CoV-2 Antigen (Rapid) - Final SARS-CoV-2 (COVID 19) D/C Instructions Discharge Diet: Low fat / Low cholesterol and 2000 mg Sodium Diet Discharge Activity: Return to Normal Activity Meaningful Use Info Meaningful Use Diagnoses (Choose all that apply): None applicable Discharge Plan Admission Admit Date/Time: 05/13/22 00:47 Primary Reason for Your Visit: COVID 19 infection Attending Provider: Pamella Hinds Primary Care Provider: Lj Wheatley Consulting Providers: Madyson Hurtado ; Magda Reece ; Gypsy Chiang ; Scott Dallas Instructions Additional Instructions / Restrictions: Please follow up with GI on discharge for consideration of upper and lower endoscopy due to iron deficiency Discharge Orders/Prescriptions Prescriptions: Continued levothyroxine 25 MCG tablet 25 mcg PO DAILY clonazepam 1 mg Tablet 1 mg PO QHS Rx Instructions: administer 30 minutes before bedtime and can do 1/2 daily prn donepezil 5 mg Tablet 5 mg PO DAILY cetirizine [Zyrtec] 10 mg Tablet 10 mg PO DAILY citalopram [Celexa] 10 mg Tablet 10 mg PO DAILY venlafaxine [Effexor XR] 150 mg Capsule,Extended Release 24hr 150 mg PO DAILY rosuvastatin [Crestor] 10 mg Tablet 10 mg PO DAILY memantine [Namenda XR] 28 mg Capsule,Sprinkle,Er 24hr 28 mg PO DAILY Referrals / Follow Up: Tae Cordova MD [Non-Staff] - Jeevan Severino DO [Med Staff - Active Staff] - Within 2 Weeks Lj Wheatley MD [Primary Care Provider] - Disposition Disposition (needs filled in before D/C Order can be placed): [facility] Charges/Coding Visit Charges Inpatient E&M: 40870 Disch Hosp
--- NOTE | 2022-05-31 10:15 | CASEMGMT ---
Addendum entered by Radha Meehan 05/31/22 13:03: 11:50 am- VINAY called [facility]. Spoke to area secretary who informed VINAY Desouza not available. Left message requesting Deo call back at earliest convenience. 1300 -VINAY called [facility] in attempt to speak to Deo or another person in admissions. No answer. Left message requesting a call back. SEDRICK Vázquez Addendum entered by Radha Meehan 05/31/22 11:19: VINAY reached out to Pt's Daughter, Srini, to confirm [facility] had contacted Srini to complete pending medicaid questionnaire. Srini confirmed the facility called and had asked income questions regarding pt. Srini stated asked if pt would be able to go to [facility] today and was not given a definitive answer but felt it was more of a no than a yes. VINAY to call [facility] back to discuss. SEDRICK Vázquez Original Note: Social Work VINAY called [facility] to speak to Deo. Deo asked about new pending medicaid other than application from 03/24. VINAY explained LOC has been obtained (05/28/22) and that the hospital was made aware last week a bed would become open this morning for pt at [facility]. Deo stated needing pt's daughter's phone number to call about Medicaid pending questionnaire. VINAY provided phone number of Srini Gardunoer to Deo. Deo stated would call Srini to discuss. VINAY in the middle of requesting Deo call this VINAY back with update of plan when Deo hung up the phone. PLAN: [facility], pending medicaid SEDRICK Vázquez
[2022-05-31 10:45] LABS: Absolute Neutrophil Count 2.8 X10^3/uL (2.0-7.7); Basophil# 0.05 X10^3/uL; Basophil% 0.9 % (0-1); Eosinophil# 0.18 X10^3/uL; Eosinophils% 3.3 % (0-5); Hematocrit 39.8 % (37-47); Hemoglobin 12.9 g/dL (12.0-15.0); Lymphocyte % 32.8 % (19-41); Mean Corp Hgb Conc 32.4 g/dL (32-36); Mean Corpuscular Hgb 28.7 pg (27.0-32.0); Mean Corpuscular Volume 88.6 fL (81-99); Mean Platelet Vol. 9.1 fl (6.2-12.0); Monocyte# 0.61 X10^3/uL; Monocyte% 11.1 % (0-10); NRBC Flagged by Analyzer 0 % (0-5); Neutrophil # 2.83 X10^3/uL (2.7-7.7); Neutrophil % 51.7 % (47-70); Platelet Count 321 K/mm3 (150-450); RBC Distribution Width CV 13.2 % (11.6-14.6); RBC Distribution Width SD 42.7 fl (35.1-43.9); Red Blood Count 4.49 M/mm3 (4.2-5.4); White Blood Count 5.5 K/mm3 (4.4-11.0)
[2022-05-31 11:24] LABS: ALB/GLOB Ratio 0.8 RATIO (0.9-2.4); AST(SGOT) 22 U/L (15-37); Alanine Aminotransfer ALT/SGPT 21 U/L (13-56); Albumin, Serum 3.5 g/dL (3.2-5.0); Alkaline Phosphatase 90 U/L (45-117); Anion Gap 4 (5-15); BUN 14 mg/dL (7-18); BUN/Creat Ratio 15.2 RATIO (10-20); Calcium,Total 8.9 mg/dL (8.5-10.1); Chloride 110 mmol/L (98-107); Creatinine, Serum 0.92 mg/dL (0.55-1.02); EST Glomerular Filtration Rate 64 mL/min (>60); Est Glom Filt Rate - Afr Amer 78 mL/min (>60); Estimated Creatinine Clearance 54.03 ml/min; Globulin 4.6 g/dL (2.2-4.2); Glucose 103 mg/dL (74-106); Potassium 3.9 mmol/L (3.5-5.1); Protein, Total 8.1 g/dL (6.4-8.2); Sodium Level 142 mmol/L (136-145)
--- NOTE | 2022-05-31 11:49 | PN.HOSP_ITS ---
Subjective Subjective Follow-up on debility/acute COVID-19 infection: Patient was seen and examined. No new complaints. Waiting on discharge planning to intermediate facility. Objective Data Objective Data Vital Signs: Vital Signs Temp Pulse Resp BP Pulse Ox O2 Del Method 97.9 F 73 16 101/50 L 97 Room Air 05/31/22 06:29 05/31/22 06:29 05/31/22 06:29 05/31/22 06:29 05/31/22 06:29 05/31/22 06:29 Oxygen Delivery Method Room Air Weight: 83.5 kg Body Mass Index (BMI) 29.7 Lab / Micro Data Result Diagrams: 05/31/22 10:37 05/31/22 10:37 Labs: Laboratory Results - last 24 hr 05/31/22 10:37: WBC 5.5, RBC 4.49, Hgb 12.9, Hct 39.8, MCV 88.6, MCH 28.7, MCHC 32.4, RDW Std Deviation 42.7, RDW Coeff of Rosalba 13.2, Plt Count 321, MPV 9.1, Immature Gran % (Auto) 0.200, Neut % (Auto) 51.7, Lymph % (Auto) 32.8, Greene % (Auto) 11.1 H, Eos % (Auto) 3.3, Baso % (Auto) 0.9, Absolute Neuts (auto) 2.8, Absolute Lymphs (auto) 1.80, Nucleated RBC % 0 05/31/22 10:37: Sodium 142, Potassium 3.9, Chloride 110 H, Carbon Dioxide 28.0, Anion Gap 4 L, BUN 14, Creatinine 0.92, Estim Creat Clear Calc 54.03, Est GFR (MDRD) Af Amer 78, Est GFR (MDRD) Non-Af 64, BUN/Creatinine Ratio 15.2, Glucose 103, Calcium 8.9, Total Bilirubin 0.30, AST 22, ALT 21, Alkaline Phosphatase 90, Total Protein 8.1, Albumin 3.5, Globulin 4.6 H, Albumin/Globulin Ratio 0.8 L Micro: Microbiology 05/12/22 22:50 Blood Culture (Wb) - Anticubital Left Blood Culture - Final No growth in 5 days. 05/12/22 23:27 Blood Culture (Wb) - Anticubital Left Blood Culture - Final No growth in 5 days. 05/12/22 23:30 Urine Catheter - Catheter Urine Culture - Final Culture exhibits no growth. 05/14/22 13:00 Stool Stool Occult Blood (LEO) - Final Occult Blood Positive 05/12/22 23:30 Nasal Secretion SARS-CoV-2 Antigen (Rapid) - Final SARS-CoV-2 (COVID 19) Rhythm Strip Rhythm Strip: Sinus Tach Rate: 115 Ectopy: None Physical Exam Narrative Physical exam: General: Alert, Oriented x3, Cooperative, not on oxygen HEENT: Atraumatic Oral: Moist Mucosa Neck: Supple Lungs: Diminished to auscultation Cardiovascular: HS I+II, regular, no murmurs Abdomen: Bowel Sounds Present, Soft, Non Tender Extremities: No edema Skin: No rashes, No breakdown Neurological: Grossly intact Psych/Mental Status: Appropriate Assessment & Plan Assessment/Plan (1) COVID: PLAN: Plan 1. Acute COVID-19 infection without hypoxia Patient is out of isolation Continue to monitor 2. Iron deficiency anemia, hemoglobin stable at 12.9 Continue on oral iron supplementation 3. Hypothyroidism, continue on synthroid 4. Hyperlipidemia, continue statin 5. Bipolar disorder, continue on Celexa, Effexor, Klonopin, risperidone 6. Dementia, continue on Aricept 7. DVT PPx- Lovenox SC Charges/Coding Visit Charges Inpatient E&M: 19173 Subs Hosp L2
[2022-05-31 13:27] VITALS: BP 124/60; PULSE 60; RESP 18; TEMP 36.7; O2SAT 95
--- NOTE | 2022-05-31 15:18 | CASEMGMT ---
Care Management Follow-up: This Franchise Sales Manager contacted Deo at [facility] regarding the status of pt's acceptance. Deo stated he had just spoken with the regional education coordinator who stated pt can be accepted under her pending Medicaid but with a pro-rated pt liability depost for the remainder of the month. Deo to contact the business office for a finite number, then to call pt's daughter to discuss payment. Deo stated this amount is needed to ensure they receive some payment in the instance pt's Medicaid is not approved and they will not accept the pt without this deposit. Deo provided this project account manager's phone number for updates on conversation with the pt's daughter. Deo states pt can be accepted this evening if payment received. Ja Kothari RN CM
--- NOTE | 2022-05-31 16:34 | NURSING ---
daughter Srini, called stated that payment has been taken care of and stated that they could accept pt tomorrow. Faisal from [facility] stated that we needed to have negative covid test and proper paper work for pt to go to facility. This sec calling faisal at [facility] to verify and see if patient is able to come tonight since we have everything that we need. faisal did verify that they can take the patient tonight. Will obtain a signed med list, negative COVID test, and arrange transportation for patient. Primary RN, bowl turner, and CM RN Ashley aware of this update.
--- NOTE | 2022-06-01 08:49 | CASEMGMT ---
Social Work Pt's requested fax discharge summary to [facility]. This SW faxed discharge summary via [facility]. SEDRICK Vázquez
== END 2022-05-31 21:05 ==
LOC: ED 05-13 00:32 → MS3 05-13 01:06
PROVIDERS: Family Medicine; Hospitalist; Internal Medicine; Student in an Organized Health Care Education/Training Program; Admitting Provider Nurse Practitioner Family; Emergency Provider Emergency Medicine; PCP Family Medicine; Visit Provider Internal Medicine
DX: U07.1 COVID-19 (principal); F03.90 Unspecified dementia, unspecified severity, without behavioral disturbance, psychotic disturbance, mood disturbance, and anxiety; E78.00 Pure hypercholesterolemia, unspecified; G93.41 Metabolic encephalopathy; R00.0 Tachycardia, unspecified; E03.9 Hypothyroidism, unspecified; D50.9 Iron deficiency anemia, unspecified; Z87.891 Personal history of nicotine dependence; Z79.899 Other long term (current) drug therapy; Z79.890 Hormone replacement therapy; F32.A Depression, unspecified; F41.9 Anxiety disorder, unspecified
CPT/HCPCS: 36415; 51702; 71045; 80048; 80053; 81001; 82274; 82607; 82728; 82747; 83540; 83550; 83605; 84443; 85014; 85025; 85045; 85610; 85730; 87040; 87086; 87811; 93005; 96360; 96372; 97110; 97162; 97166; 97168; 97530; 99218; 99285; J7030; A4216; G0378